=== PATIENT | male | born 1965 | race Caucasian/White ===

== ENCOUNTER → 2017-04-01 | Outpatient (CLI) | payer OTHER ==
--- NOTE | 2017-04-01 10:59 | P.STRESS ---
- Stress Test Note Stress Test Results/Findings: Exam Performed: stress echo exercise Exam Date: 04/01/17 Reason for Exam: Chest Pain Height: 5 ft 3 in Weight: 77.111 kg Protocol: Percy Stress Echo Stage: 3 Duration of Exercise: 10:11 Resting Heart Rate: 64 Resting Blood Pressure: 115/58 Maximum Achieved Heart Rate: 156 Maximum Achieved Blood Pressure: 176/76 85% PMHR: 145 100% PMHR: 170 METS: 11.7 Technologist Comment: Stress Test Results/Findings: The EKG showed sinus rhythm with normal NM interval and QRS duration. EKGs taken during and after the exercise did not reveal any changes to suggest ischemia. Patient did not experience any chest pain. Echo data: Baseline echo images showed normal wall motion and thickening. Exercise echo images showed augmentation of wall motion and thickening in all segments. Final impression: #1. Negative stress test . #2. Negative stress echo..
--- NOTE | 2017-04-02 16:50 | ECHOS ---
Stress Test Results/Findings: Exam Performed: stress echo exercise Exam Date: 04/01/17 Reason for Exam: Chest Pain Height: 5 ft 3 in Weight: 77.111 kg Protocol: Percy Stress Echo Stage: 3 Duration of Exercise: 10:11 Resting Heart Rate: 64 Resting Blood Pressure: 115/58 Maximum Achieved Heart Rate: 156 Maximum Achieved Blood Pressure: 176/76 85% PMHR: 145 100% PMHR: 170 METS: 11.7 Technologist Comment: Stress Test Results/Findings: The EKG showed sinus rhythm with normal HI interval and QRS duration. EKGs taken during and after the exercise did not reveal any changes to suggest ischemia. Patient did not experience any chest pain. Echo data: Baseline echo images showed normal wall motion and thickening. Exercise echo images showed augmentation of wall motion and thickening in all segments. Final impression: #1. Negative stress test . #2. Negative stress echo.. MTDD
== END | disposition home or self-care (01) ==
LOC: RADNMMAIN 08:58
PROVIDERS: ATTEND Family Medicine
DX: I25.2 Old myocardial infarction (principal)
CPT/HCPCS: 93017; 93350

== ENCOUNTER → 2017-10-24 | Outpatient (CLI) | payer OTHER ==
[2017-10-24 16:20] LABS: Cholesterol 260 mg/dL (<200); HDL Cholesterol 36 mg/dL (40-60); LDL Cholesterol,Calculated 158 mg/dL (0-99); Triglycerides 329 mg/dL (<150)
== END | disposition home or self-care (01) ==
LOC: LABWHC1 15:25
PROVIDERS: ATTEND Nurse Practitioner Adult Health
DX: E78.5 Hyperlipidemia, unspecified (principal)
CPT/HCPCS: 36415; 80061

== ENCOUNTER → 2019-01-10 | Outpatient (CLI) | payer BC ==
[2019-01-10 09:59] LABS: HCT 41.4 % (39.0-53.0); HGB 13.6 gm/dL (13.0-17.5); MCH 30.3 pg (25.0-35.0); MCHC 32.8 g/dL (31.0-37.0); MCV 92.5 fL (80.0-100.0); Mean Platelet Volume 6.7; Platelet Count 291 k/uL (150-450); RBC 4.47 m/uL (4.30-5.90); RDW 13.8 % (11.5-15.5); WBC 6.5 k/uL (3.8-10.6)
[2019-01-10 10:04] LABS: African American GFR (CKD) >90 (>60 ml/min/1.73 sqM); Anion Gap 7 mmol/L; Blood Urea Nitrogen 14 mg/dL (9-20); Carbon Dioxide 25 mmol/L (22-30); Chloride 107 mmol/L (98-107); Sodium 139 mmol/L (137-145)
== END | disposition home or self-care (01) ==
LOC: LABPAT 09:01
PROVIDERS: ATTEND Internal Medicine Interventional Cardiology
DX: Z01.812 Encounter for preprocedural laboratory examination (principal); I25.10 Atherosclerotic heart disease of native coronary artery without angina pectoris
CPT/HCPCS: 36415; 80051; 82565; 84520; 85027

== ENCOUNTER 2019-01-23 06:22 | Day surgery (SDC) | payer BC, OTHER ==
[2019-01-21 13:39] VITALS: BMI 28.5
[~2019-01-23 06:22] MED LIST: ALPRAZolam 0.25 MG TAB PO PRN; ALPRAZolam 0.5 MG TAB PO PRN; NITROGLYCERIN SL TABS 0.4 MG TAB SUBLINGUAL PRN; SODIUM CHLORIDE 0.9% 1,000 ML in EMPTY BAG 1 BAG IV ONE
[2019-01-23] MEDS ORDERED: ASPIRIN 325 MG TAB PO ONE (07:00)
[2019-01-23] MEDS ORDERED: ATORVASTATIN 80 MG TAB PO ONE (07:00)
[2019-01-23 07:07] VITALS: TEMP 97.8
[2019-01-23] MEDS ORDERED: fentaNYL (PF) 50 MCG/ML 2 ML AMP ONE (07:46)
[2019-01-23] MEDS: BENZOCAINE SPRAY 1 CAN MUCOUS MEM ONE ×2 (07:53→08:06)
[2019-01-23] MEDS ORDERED: fentaNYL (PF) 50 MCG/ML 2 ML AMP IV ONE (08:08)
[2019-01-23] MEDS ORDERED: MIDAZOLAM PF (FBP) 2 MG/2 ML VIAL IV ONE (08:08)
[2019-01-23] MEDS ORDERED: LIDOCAINE 1% INJ 10MG/ML (20 ML MDV) ONE (08:08)
[2019-01-23] MEDS ORDERED: LIDOCAINE 1% INJ 10MG/ML (20 ML MDV) SQ ONE (08:43)
[2019-01-23] MEDS ORDERED: IV FLUID CONTINUATION 400 ML IV ONE (08:46)
[2019-01-23] MEDS ORDERED: IOPAMIDOL-370 125ML BTL INJ ONE (08:54)
--- NOTE | 2019-01-23 09:00 | P.PCN ---
Date of Procedure: 01/23/19 Operative Findings: CARDIAC CATHETERIZATION PERFORMING PHYSICIAN: Duane Jenkins MD, RPVI PROCEDURE PERFORMED: 1. Selective right and left coronary angiogram INDICATION: This is a pleasant 53-year-old gentleman was known history of CAD and prior stenting of the LAD was experiencing symptoms of chest discomfort. He underwent myocardial perfusion imaging stress and that revealed inferior ischemia. Because of that a heart catheterization was advised. COMPLICATION: None APPROACH: Right radial artery LEVEL OF SEDATION: Moderate with a sedation Social 13 minutes PROCEDURE DESCRIPTION: After obtaining an informed consent, the patient was brought to cardiac laboratory mechanic helper. Local anesthesia was performed using lidocaine subcutaneously. The right radial artery was cannulated using Seldinger technique, the guidewire passed easily, following that we advanced a 5-[place] sheath dilator assembly, the wire and dilator were removed and sheath was flushed. Following that, 2 mg of verapamil along with 5000 unit heparin were given. Selective right and left coronary angiogram using a 6-[place] JR4 and JL4 catheter for the left circumflex and JL 3.5 catheter for the LAD. I did not perform left heart catheterization and I did not cross the valve. The procedure was completed there was no complication. SELECTIVE CORONARY ANGIOGRAM: The right coronary artery: Medium caliber vessel and nondominant vessel and appears to be angiographically normal. Left main: Does not exist The left circumflex: Is a large caliber vessel and a dominant vessel and appears to be angiographically normal. The left circumflex distally bifurcates into PDA and PLV branches and both appeared to be angiographically normal. The left anterior descending artery: It is a large caliber vessel. Its angiographically normal. The stent in the mid LAD appears to be patent. The LAD in the proximal to midportion gives rises into a diagonal branch which seems to be angiographically normal. CONCLUSION: #1 patent stent in the mid LAD #2 separate ostial of the left circumflex and LAD. The left main does not exist POSTPROCEDURE MANAGEMENT: Medical treatment Follow-up with the patient
[2019-01-23] MEDS ORDERED: RX INFO: IV CONTRAST WAS GIVEN 1 EACH MISC MISCELLANE PRN (09:02)
--- NOTE | 2019-01-23 09:06 | ECHOT ---
TRANSESOPHAGEAL ECHOCARDIOGRAM DATE OF SERVICE: January 23, 2019 PERFORMING PHYSICIAN: Duane Jenkins MD. PROCEDURE PERFORMED: Transesophageal echocardiogram. INDICATION: This is a 53-year-old gentleman with history of coronary artery disease and prior coronary artery stenting, who underwent recently an echocardiogram and that revealed a mobile echodensity attached to the noncoronary cusp of the aortic valve. ALTHEA was advised for better clarification. COMPLICATION: None. LEVEL OF SEDATION: Moderate with sedation length of 15 minutes. PROCEDURE DESCRIPTION: After obtaining an informed consent, explaining the procedure, benefits, risks, complications and alternatives, the patient was brought to the transesophageal echocardiogram suite. A pulse oximetry and heart rate monitors were attached to the patient prior to the procedure. The patient's throat was sprayed using lidocaine locally. Following that, the patient was turned into left lateral position. A bite guard was placed and the patient was then sedated with the above doses of Versed and fentanyl in divided doses. Following that, the transesophageal echocardiogram probe was advanced through the bite guard into the mid esophagus where 2-D echocardiogram images as well as color Doppler images of various cardiac structures were obtained. We evaluated the interatrial septum using 2-D echocardiogram, color Doppler, and contrast study. The procedure was completed. There were no complications. FINDINGS: The left ventricular dimension and systolic function appeared to be within normal limits. The ejection fraction appeared to be in the range of 55% to 60%. The right ventricle appeared to be of normal size and function. The left atrium appeared to be mildly dilated. The left atrial appendage appeared to be free from any thrombus. The interatrial septum appeared to be hyperdynamic with evidence of patent foramen ovale with [id number] shunt. The aortic valve is trileaflet valve. There is no aortic stenosis or regurgitation. There was a mobile echodensity attached to the downstream side of non-coronary cusp consistent with fibroelastoma. The mitral valve appeared to be normal with mild MR. There was mild tricuspid regurgitation and mild pulmonic insufficiency. CONCLUSION: 1. 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 2. The aortic valve otherwise is trileaflet valve without evidence of stenosis or regurgitation. 3. Normal left ventricular dimension and systolic function. 4. Overall normal cardiac chamber sizes. 5. Hyperdynamic interatrial septum with evidence of patent foramen ovale and right-to- left shunt. 6. Normal mitral valve leaflets with mild mitral regurgitation. 7. Normal tricuspid valve and pulmonic valve. 8. Intact left atrial appendage without any evidence of thrombus. 9. Normal aortic root dimension. 10.No evidence of pericardial effusion. MMODL / IJN: [id number] /
[2019-01-23] MEDS ORDERED: SODIUM CHLORIDE 0.9% 1,000 ML IV SCH (09:15)
[2019-01-23 11:21] VITALS: RESP 16
[2019-01-23 15:37] VITALS: BP 121/72; PULSE 66
--- NOTE | 2019-01-27 15:30 | CDI ---
Outpatient Documentation Clarification Form Date: 01/27/19 CDS/Elementary School Director Name: Negar Mullen Phone: If any questions, call Violeta Bess Machinist Supervisor Outside at [phone] Patient Name: Efe Daugherty Admit Date: 01/23/19 Discharge Date: 01/23/19 ATTENTION: The [facility] Coding Staff appreciate your assistance in clarifying documentation. Please respond to the clarification below the line at the bottom and electronically sign. The [facility] Coding staff will review the response and follow-up if needed. Please note: Queries are made part of the Legal Health Record. If you have any questions, please contact the Machinist Supervisor Outside. Dear Dr. Jenkins, Please provide clarification as to the procedure performed. Your procedure note does not contain any documentation on the pulse waive velocity mapping. Please clarify if this part of the procedure was performed. Thank you for your kind consideration MTDD
--- NOTE | 2019-02-03 09:46 | CDI ---
Outpatient Documentation Clarification Form Date: 01/27/19 CDS/Senior Controls Engineer Name: Negar Mullen Phone: If any questions, call Violeta Bess Identity Management Developer at [phone] Patient Name: Efe Daugherty Admit Date: 01/23/19 Discharge Date: 01/23/19 ATTENTION: The [facility] Coding Staff appreciate your assistance in clarifying documentation. Please respond to the clarification below the line at the bottom and electronically sign. The [facility] Coding staff will review the response and follow-up if needed. Please note: Queries are made part of the Legal Health Record. If you have any questions, please contact the Identity Management Developer. Dear Dr. Jenkins, Please provide clarification as to the procedure performed. Your procedure note does not contain any documentation on the "pulse waive velocity mapping". Please clarify if this part of the procedure was performed. Thank you for your kind consideration Not done MTDD
== END 2019-01-23 16:20 | disposition home or self-care (01) ==
LOC: CATHCVL 06:22
PROVIDERS: ATTEND Internal Medicine Interventional Cardiology
DX: I34.0 Nonrheumatic mitral (valve) insufficiency (principal); Q21.1 Atrial septal defect; R07.89 Other chest pain; R94.39 Abnormal result of other cardiovascular function study; R53.83 Other fatigue; I25.10 Atherosclerotic heart disease of native coronary artery without angina pectoris; F17.210 Nicotine dependence, cigarettes, uncomplicated; Z95.5 Presence of coronary angioplasty implant and graft; I95.9 Hypotension, unspecified; E78.5 Hyperlipidemia, unspecified; I65.23 Occlusion and stenosis of bilateral carotid arteries; Z79.82 Long term (current) use of aspirin; Z79.899 Other long term (current) drug therapy
CPT/HCPCS: 93454; 93312; 93320; 93325; C1894; C1769 ×2; J2001; J3010; Q9967; J2250

== ENCOUNTER → 2019-03-03 | Outpatient (CLI) | payer BC ==
[2019-03-03 10:23] LABS: HCT 39.1 % (39.0-53.0); HGB 13.5 gm/dL (13.0-17.5); MCH 31.7 pg (25.0-35.0); MCHC 34.5 g/dL (31.0-37.0); Mean Platelet Volume 5.7; Platelet Count 303 k/uL (150-450); RBC 4.25 m/uL (4.30-5.90); RDW 12.5 % (11.5-15.5)
--- NOTE | 2019-03-03 10:26 | P.PN ---
Progress Note - Text Progress Note Date: 03/03/19 5 meter walk test performed: #1 3.38 sec #2 3.42 sec #3 2.92 sec STS risk score calculated and discussed with patient
[2019-03-03 10:33] LABS: INR 0.9 (<1.2); Partial Thromboplastin Time 25.9 sec (22.0-30.0); Prothrombin Time 9.5 sec (9.0-12.0)
[2019-03-03 10:35] LABS: ALT 22 U/L (21-72); AST 19 U/L (17-59); African American GFR (CKD) >90 (>60 ml/min/1.73 sqM); Albumin 4.2 g/dL (3.5-5.0); Alkaline Phosphatase 58 U/L (38-126); Anion Gap 8 mmol/L; Blood Urea Nitrogen 15 mg/dL (9-20); Calcium 9.4 mg/dL (8.4-10.2); Carbon Dioxide 25 mmol/L (22-30); Chloride 107 mmol/L (98-107); Cholesterol 223 mg/dL (<200); Glucose 116 mg/dL (74-99); HDL Cholesterol 43 mg/dL (40-60); LDL Cholesterol,Calculated 149 mg/dL (0-99); Magnesium 2.1 mg/dL (1.6-2.3); Potassium 3.8 mmol/L (3.5-5.1); Sodium 140 mmol/L (137-145); Total Bilirubin 0.3 mg/dL (0.2-1.3); Total Protein 6.9 g/dL (6.3-8.2); Triglycerides 155 mg/dL (<150)
[2019-03-03 11:27] LABS: Appearance,Urine Clear (Clear); Bilirubin,Urine Negative (Negative); Blood,Urine Negative (Negative); Color,Urine Light Yellow; Glucose,Urine (UA) Negative (Negative); Ketones,Urine Negative (Negative); Leukocyte Esterase,Urine Negative (Negative); Nitrite,Urine Negative (Negative); Protein,Urine Negative (Negative); Specific Gravity,Urine 1.005 (1.001-1.035); Urobilinogen,Urine <2.0 mg/dL (<2.0)
--- NOTE | 2019-03-03 13:27 | XR ---
EXAMINATION TYPE: XR chest 2V DATE OF EXAM: 03/03/2019 COMPARISON: NONE TECHNIQUE: PA and lateral views submitted. HISTORY: Presurgical FINDINGS: The lungs are clear and there is no pneumothorax, pleural effusion, or focal pneumonia. Mild hyperi nflation correlate for COPD. No overt failure. Hypertrophic and degenerative change of the spine. IMPRESSION: 1. No acute process.
[2019-03-03 17:38] LABS: Hemoglobin A1C 5.8 % (4.0-6.0)
[2019-03-03 18:06] LABS: Hepatitis A Antibody IgM Non-Reactive (Non-Reactive); Hepatitis B Core IgM Non-Reactive (Non-Reactive); Hepatitis B Surface Antigen Non-Reactive (Non-Reactive); Hepatitis C IgG Antibody Non-Reactive (Non-Reactive)
--- NOTE | 2019-03-04 09:31 | P.VSCSTY ---
Greater Saphenous Vein Mapping This is bilateral lower extremity greater saphenous vein mapping. Date of service: 03/03/2019 Vein quality and ultrasound appearance: No endoluminal thrombus or wall changes are seen. Vein size groin right : 4.1 x 3.1 groin left: 5.6 x 5.8 High thigh right: 4.1 x 3.6 high thigh left: 5.1 x 3.9 Mid thigh right: 4.0 x 2.9 mid thigh left: 4.5 x 4.3 Above-knee right: 5.0 x 3.9 above-knee left: 5.2 x 4.2 Below knee right: 3.5 x 2.6 below-knee left: 3.8 x 2.7 Mid calf right: 2.4 x 2.0 mid calf left: 3.5 x 2.5 Ankle right: 2.5 x 2.2 ankle left: 3.1 x 2.8 Impression: Usable bilateral greater saphenous vein.
== END | disposition home or self-care (01) ==
LOC: LABPAT 08:26
PROVIDERS: ATTEND Thoracic Surgery (Cardiothoracic Vascular Surgery)
DX: Z01.818 Encounter for other preprocedural examination (principal)
CPT/HCPCS: 36415; 71046; 80053; 80061; 80074; 81003; 83036; 83735; 84443; 85027; 85610; 85730; 87070; 87086; 93005; 93970; 94150

== ENCOUNTER 2019-03-11 08:15 | Inpatient (IN) | payer BC ==
[~2019-03-11 08:15] MED LIST changes: +ALBUMIN HUMAN 25% 50 ML IV ONE; -ALPRAZolam 0.25 MG TAB PO PRN; -ALPRAZolam 0.5 MG TAB PO PRN; +ASPIRIN 325 MG TAB PO ONE; +ATORVASTATIN 10 MG TAB PO ONE; +CALCIUM CHLORIDE 100 MG/ML 10 ML SYRINGE IV ONE; +CHLORHEXIDINE GLUCONATE 15 ML CUP MUCOUS MEM ONE; +CLEVIDIPINE BUTYRATE 25 MG in EMPTY BAG 1 BAG IV ONE; +DEXTROSE 5% IN WATER 1,000 ML with POTASSIUM CHLORIDE 110 MEQ, MAGNESIUM SULFATE 16 MEQ... IV ONE; +DEXTROSE 5% IN WATER 1,000 ML with POTASSIUM CHLORIDE 25 MEQ, SODIUM CHLORIDE 2.5MEQ/ML... IRRIGATION ONE; +HEPARIN SODIUM 1,000 UN/ML (10ML VL) IV ONE; +HEPARIN SODIUM,PORCINE 5,000 UNIT in SODIUM CHLORIDE 0.9% 500 ML 500 ML IV ONE; +INSULIN REGULAR 100 UNIT in SODIUM CHLORIDE 0.9% 100 ML IV ONE; +LACTATED RINGERS 1,000 ML IV ONE; +MAGNESIUM SULFATE MG 500 MG/ML IV ONE; +MANNITOL 25% 12.5 GM/50 ML VIAL IV ONE; +METOPROLOL TARTRATE 12.5 MG TAB PO ONE; -NITROGLYCERIN SL TABS 0.4 MG TAB SUBLINGUAL PRN; +NITROGLYCERIN-D5W PMX 25 MG/250 ML BTL IV ONE; +NITROGLYCERIN-D5W PMX 50 MG in DEXTROSE/WATER 1 250ML.BAG IV ONE; +NOREPINEPHRINE 4 MG in SODIUM CHLORIDE 0.9% 250 ML IV ONE; +PHENYLEPHRINE 40 MG in SODIUM CHLORIDE 0.9% 250 ML IV ONE; +PROPOFOL 1,000 MG/100 ML VIAL IV ONE; +PROTAMINE SULFATE 10 MG/ML 25 ML VIAL IV ONE; +PROTAMINE SULFATE 250 MG in EMPTY BAG 1 BAG IV ONE; +SODIUM BICARB 8.4% 50 ML SYR (1 MEQ/ML) IV ONE; +SODIUM CHLORIDE 0.9% 1,000 ML IV ONE; -SODIUM CHLORIDE 0.9% 1,000 ML in EMPTY BAG 1 BAG IV ONE; +TRANEXAMIC ACID 2,000 MG in SODIUM CHLORIDE 0.9% 80 ML IV ONE; +ceFAZolin 2,000 MG in SODIUM CHLORIDE 0.9% 30 ML IVPB ONE
[2019-03-11] MEDS ORDERED: ONDANSETRON 4 MG/2 ML VIAL ONE (11:23)
[2019-03-11] MEDS ORDERED: PROTAMINE SULFATE 10 MG/ML 25 ML VIAL IV ONE (11:23)
[2019-03-11] MEDS ORDERED: MIDAZOLAM 2 MG/2 ML VIAL ONE (11:23)
[2019-03-11] MEDS ORDERED: fentaNYL (PF) 50 MCG/ML 2 ML AMP ONE (11:23)
[2019-03-11] MEDS ORDERED: WATER FOR INJECTION, STERILE 10 ML VIAL IV ONE (11:23)
[2019-03-11] MEDS ORDERED: LABETALOL 5 MG/ML VIAL MDV ONE (11:23)
[2019-03-11] MEDS ORDERED: PHENYLEPHRINE-0.9% NACL SYG 1 MG/10 ML SYRINGE ONE (11:23)
[2019-03-11] MEDS ORDERED: MAGNESIUM SULFATE 4 MEQ/ML 10ML VIAL ONE (11:23)
[2019-03-11] MEDS ORDERED: PROPOFOL 10 MG/ML 20 ML VIAL IV ONE (11:23)
[2019-03-11] MEDS ORDERED: HEPARIN SODIUM,PORCINE 10,000 UNIT/ML 1 ML VIAL ONE (11:23)
[2019-03-11] MEDS ORDERED: fentaNYL (PF) 50 MCG/ML 50 ML VIAL ONE (11:23)
[2019-03-11] MEDS ORDERED: TRANEXAMIC ACID 1,000 MG/10 ML VIAL ONE (11:23)
[2019-03-11] MEDS ORDERED: SODIUM CHLORIDE 0.9% 250 ML BAG ONE (11:23)
[2019-03-11] MEDS ORDERED: CALCIUM CHLORIDE 100 MG/ML 10 ML SYRINGE ONE (11:23)
[2019-03-11] MEDS ORDERED: NITROGLYCERIN-D5W PMX 50 MG/250 ML BOTTLE IV ONE (11:23)
[2019-03-11] MEDS ORDERED: VECURONIUM 10 MG VIAL IV ONE (11:23)
[2019-03-11] MEDS ORDERED: SODIUM CHLORIDE 0.9% IRRIG 1,000 ML BTL IRRIGATION ONE (11:23)
[2019-03-11 11:46] LABS: ABG Base Excess 0.5 mmol/L; ABG Glucose Whole Blood 99 mg/dL (75-99); ABG HCO3 26 mmol/L (21-25); ABG Hematocrit 39 % (34.0-46.0); ABG Ionized Calcium 4.8 mg/dL (4.5-5.3); ABG Lactic Acid Whole Blood 1.2 mmol/L (0.5-1.6); ABG PCO2 43 mmHg (35-45); ABG PH 7.39 (7.35-7.45); ABG Potassium Whole Blood 4.1 mmol/L (3.4-4.5); ABG Sodium Whole Blood 142 mmol/L (135-146); ABG TCO2 27 mmol/L (19-24)
[2019-03-11] MEDS ORDERED: TRANEXAMIC ACID 2,000 MG in SODIUM CHLORIDE 0.9% 80 ML IV ONE (12:15)
[2019-03-11 12:48] LABS: ABG Base Excess 1.1 mmol/L; ABG Glucose Whole Blood 106 mg/dL (75-99); ABG HCO3 26 mmol/L (21-25); ABG Hematocrit 35 % (34.0-46.0); ABG Ionized Calcium 4.7 mg/dL (4.5-5.3); ABG Lactic Acid Whole Blood 1.2 mmol/L (0.5-1.6); ABG Oxygen Saturation 99.3 % (94-97); ABG PCO2 41 mmHg (35-45); ABG PH 7.41 (7.35-7.45); ABG PO2 167 mmHg (83-108); ABG Potassium Whole Blood 4.2 mmol/L (3.4-4.5); ABG Sodium Whole Blood 141 mmol/L (135-146); ABG TCO2 27 mmol/L (19-24)
[2019-03-11 13:04] LABS: ABG Base Excess -0.1 mmol/L; ABG Glucose Whole Blood 194 mg/dL (75-99); ABG HCO3 25 mmol/L (21-25); ABG Hematocrit 25 % (34.0-46.0); ABG Ionized Calcium 4.2 mg/dL (4.5-5.3); ABG Lactic Acid Whole Blood 1.5 mmol/L (0.5-1.6); ABG Oxygen Saturation 99.9 % (94-97); ABG PCO2 41 mmHg (35-45); ABG PH 7.39 (7.35-7.45); ABG PO2 400 mmHg (83-108); ABG Potassium Whole Blood 4.9 mmol/L (3.4-4.5); ABG Sodium Whole Blood 135 mmol/L (135-146); ABG TCO2 26 mmol/L (19-24)
[2019-03-11 14:03] LABS: ABG Base Excess 0.2 mmol/L; ABG Glucose Whole Blood 164 mg/dL (75-99); ABG HCO3 25 mmol/L (21-25); ABG Hematocrit 29 % (34.0-46.0); ABG Lactic Acid Whole Blood 1.2 mmol/L (0.5-1.6); ABG Oxygen Saturation 99.2 % (94-97); ABG PCO2 39 mmHg (35-45); ABG PH 7.41 (7.35-7.45); ABG PO2 131 mmHg (83-108); ABG Potassium Whole Blood 4.5 mmol/L (3.4-4.5); ABG Sodium Whole Blood 138 mmol/L (135-146); ABG TCO2 26 mmol/L (19-24)
[2019-03-11] MEDS ORDERED: DEXTROSE 5% IN WATER 100 ML with AMIODARONE 150 MG IV PRN (14:24)
[2019-03-11] MEDS ORDERED: Magnesium Replacement Protocol 1 EACH MISC MISCELLANE PRN (14:24)
[2019-03-11] MEDS ORDERED: Phosphorus Replacement Protoco 1 EACH MISC MISCELLANE PRN (14:24)
[2019-03-11] MEDS ORDERED: CALCIUM GLUCONATE 2 GM in SODIUM CHLORIDE 0.9% 100 ML IVPB PRN (14:24)
[2019-03-11] MEDS ORDERED: Potassium Replacement Protocol 1 EACH MISC MISCELLANE PRN (14:24)
[2019-03-11] MEDS ORDERED: AMIODARONE 300 MG in DEXTROSE 5% IN WATER 250 ML IV PRN ×2 (14:24)
[2019-03-11] MEDS ORDERED: ONDANSETRON 4 MG/2 ML VIAL IVP PRN (14:24)
[2019-03-11] MEDS ORDERED: IPRATROPIUM-ALBUTEROL 3 ML NEB INHALATION PRN (14:24)
[2019-03-11] MEDS ORDERED: BENZOCAINE/MENTHOL LOZENG 1 EACH LOZENGE MUCOUS MEM PRN (14:24)
[2019-03-11] MEDS ORDERED: PROPOFOL 1,000 MG in EMPTY BAG 1 BAG IV SCH (14:24)
[2019-03-11] MEDS ORDERED: AMIODARONE 360 MG in DEXTROSE 5% IN WATER 200 ML IV PRN ×2 (14:24)
[2019-03-11] MEDS ORDERED: ALBUMIN HUMAN 5% 250 ML in EMPTY BAG 1 BAG IVPB PRN (14:24)
[2019-03-11 14:29] LABS: ABG PO2 >420 mmHg (83-108)
[2019-03-11 14:31] LABS: ABG Ionized Calcium 3.5 mg/dL (4.5-5.3)
[2019-03-11 14:46] LABS: Glucose,Whole Blood 143 mg/dL (75-99)
[2019-03-11 14:59] LABS: Basophils # (A) 0.1 k/uL (0-0.2); Basophils % (A) 1 %; Eosinophils # (A) 0.1 k/uL (0-0.7); Eosinophils % (A) 1 %; HCT 30.3 % (39.0-53.0); Lymphocytes % (A) 8 %; MCH 31.2 pg (25.0-35.0); MCHC 33.8 g/dL (31.0-37.0); MCV 92.2 fL (80.0-100.0); Mean Platelet Volume 6.9; Monocytes # (A) 0.4 k/uL (0-1.0); Monocytes % (A) 3 %; Neutrophils # (A) 11.3 k/uL (1.3-7.7); Neutrophils % (A) 87 %; Platelet Count 170 k/uL (150-450); RBC 3.29 m/uL (4.30-5.90); RDW 12.4 % (11.5-15.5)
[2019-03-11] MEDS: CLEVIDIPINE BUTYRATE 25 MG in EMPTY BAG 1 BAG IV SCH ×4 (15:00→23:00)
[2019-03-11 15:04] LABS: Ionized Calcium 5.7 mg/dL (4.5-5.3)
[2019-03-11 15:13] LABS: ALT 24 U/L (21-72); AST 16 U/L (17-59); African American GFR (CKD) >90 (>60 ml/min/1.73 sqM); Albumin 2.4 g/dL (3.5-5.0); Alkaline Phosphatase 40 U/L (38-126); Anion Gap 3 mmol/L; Blood Urea Nitrogen 6 mg/dL (9-20); Calcium 8.9 mg/dL (8.4-10.2); Carbon Dioxide 25 mmol/L (22-30); Chloride 109 mmol/L (98-107); Glucose 131 mg/dL (74-99); HGB 10.2 gm/dL (13.0-17.5); Magnesium 2.5 mg/dL (1.6-2.3); Potassium 3.9 mmol/L (3.5-5.1); Sodium 137 mmol/L (137-145); Total Bilirubin 0.2 mg/dL (0.2-1.3); Total Protein 4.2 g/dL (6.3-8.2)
[2019-03-11 15:15] LABS: Glucose,Whole Blood 148 mg/dL (75-99)
--- NOTE | 2019-03-11 15:16 | XR ---
EXAMINATION TYPE: XR chest 1V portable DATE OF EXAM: 03/11/2019 HISTORY: Post Op CABG COMPARISON: 03/03/2019 TECHNIQUE: Single view of the chest is submitted. FINDINGS: Endotracheal tube, NG tube, SG catheter, mediastianal drains and chest tubes are appropriately placed . Post operative changes of CABG. No sizeable pneumothorax. Scattered Pleural-parencymal opacities may reflect atelectasis. The heart is not enlarged. IMPRESSION: 1. Post operative changes of CABG.
[2019-03-11 15:22] LABS: Partial Thromboplastin Time 25.6 sec (22.0-30.0)
--- NOTE | 2019-03-11 15:26 | OP ---
OPERATIVE REPORT DATE OF THE OPERATION: 03/11/2019. ATTENDING SURGEON: Dr. Devin Higginbotham. FAX MACHINE REPAIRER: 1. BRYAN Isabel. 2. Lucy King____BRYAN. PREOPERATIVE DIAGNOSIS: Mobile aortic valve mass. POSTOPERATIVE DIAGNOSIS: Mobile aortic valve mass. PROCEDURE: Removal of aortic valve mass attached to the noncoronary cusp, clip ligation of the left atrial appendage with a #35 mm AtriClip and intraoperative ALTHEA. ANESTHESIA: General. BLOOD LOSS: 500 mL. SUMMARY: Patient brought to the operating room, placed in supine position. From insertion of a general endotracheal anesthetic, placement of a Benson-Bhavya catheter arterial line, adequate IV access, Bolanos catheter, patient carefully prepped and draped in a normal sterile fashion using chlorhexidine paint, sterile towels. Midline incision in the chest made, sternum divided. Pericardium was opened. Heart was normal. Caliber of the aorta was soft. The patient was heparinized to an AST of greater than 486. Aorta and vena cava were cannulated, antegrade cardioplegia catheter positioned. Patient was placed on bypass. Cross-clamp placed. Artery arrested with 1 L of antegrade cardioplegia. At this point, the base of the left atrial appendage was measured, a 35 mm AtriClip was opened, secured at the base, officially obliterating the left atrial appendage. An aortotomy incision was made about 1.5 cm distal to the takeoff of the right coronary artery, starting just past the midline extending down towards the area of the non coronary cusp. Once opened, a left ventricular vent was placed and a handheld retractor was placed. There was, as confirmed with the echo, there was a mobile soft half to 1 cm mass attached to the noncoronary cusp. Gently, this mass as it was very friable, was gently elevated, lifted superiorly and the base was then trimmed using a 15 bladed knife. Care was taken not to disrupt the non coronary cusp of the aortic valve. The mass was then placed in a specimen cup and sent to pathology for full studies. The aortic root was irrigated out copiously with saline and the aortotomy incision closed in a double layered pledgeted 4-0 Prolene vertical mattress followed by an [id number] stitch on both sides. The patient was then placed head down. Complete de-airing maneuvers performed 3 times, 500 mL of warm blood hotshot given antegrade. Cross-clamp was removed. Once beating normal sinus rhythm, the ALTHEA was performed which showed no residual mass present and good function of the aortic valve also. Please make note, attention was directed preoperatively and postoperatively to the atrial septum where there was a questionable dictation of a preop PFO. Both preop and postop echo showed no evidence of a PFO. A bubble study was done, bubbles on the right side and no bubbles were then seen on the left. At this point, protamine delivered, patient decannulated. Ventricular pacing wires were placed, mediastinal chest tube was placed. The sternum was then closed with 4 #6 sternal wires and 2 [id number] [place] sternal cable closure devices. The skin, subcutaneous tissue, fascia closed in 3 layers. No complications. Patient tolerated the procedure well and was taken to the ICU in stable condition. MMODL / IJN: [id number] /
[2019-03-11] MEDS: LACTATED RINGERS 1,000 ML IV SCH (15:57)
[2019-03-11] MEDS ORDERED: INSULIN REGULAR 100 UNIT in SODIUM CHLORIDE 0.9% 100 ML IV SCH (16:00)
[2019-03-11] MEDS ORDERED: IPRATROPIUM-ALBUTEROL 3 ML NEB INHALATION SCH (16:00)
[2019-03-11 16:06] LABS: Glucose,Whole Blood 155 mg/dL (75-99)
[2019-03-11 16:56] LABS: ABG Base Excess 1.2 mmol/L; ABG HCO3 27 mmol/L (21-25); ABG Oxygen Saturation 94.1 % (94-97); ABG PCO2 48 mmHg (35-45); ABG PH 7.36 (7.35-7.45); ABG PO2 72 mmHg (83-108); ABG TCO2 28 mmol/L (19-24); Allen Test Performed? Yes
[2019-03-11 16:59] LABS: Glucose,Whole Blood 150 mg/dL (75-99)
[2019-03-11] MEDS ORDERED: POTASSIUM BICARBONATE/CIT AC 20 MEQ TABLET.EFF NG-TUBE SCH (17:00)
[2019-03-11] MEDS: ACETAMINOPHEN IV (For NPO) 1,000 MG in EMPTY BAG 1 BAG IVPB SCH ×2 (17:04→23:02)
--- NOTE | 2019-03-11 17:34 | P.CNPUL ---
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 The patient has history of hypertension, hyperlipidemia, coronary artery disease and is post coronary stenting. He is a smoker. He was having increased fatigue over the past 6 months. He denied having any chest pain. No chest pressure pain no palpitation. No dizziness and no vertigo. Stress test showed reversible defect along the inferior wall. Previous echocardiogram also showed a mobile echodensity along the aortic valve. 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 Normal LV function was noted. There was a patent foramen ovale with a [id number] shunt. The rest of the valvular structures were all within normal limits. A preoperative coronary angiogram showed patent stent to a med LAD. Following the surgery the patient was brought into the intensive care unit for further evaluation and weaning off the mechanical ventilator. At the time of his arrival, the patient was on assist control mode of ventilation. The patient was gradually weaned off the sedation. The patient was awake and following commands. He is weaning parameters were excellent with a temperature breathing index of 53. Subsequently was given a spontaneous breathing trial with a pressure support of 5 and a PEEP of 5 and the patient was found to have a pH of 7.35 with a pCO2 of 47 and pO2 of 71. At that point, the patient was extubated. The chest x-ray showed postoperative changes with adequate positioning of the mediastinal drains and tubes. As such, the patient was extubated. The patient has a cardiac output of 6.1. He is currently on Levophed Drip for blood p ressure control. He a pressures are 32/20. He is single mediastinal chest tube and output has been minimal since his arrival from the operating room. He is awake and alert and is following commands and answering questions appropriately. Past Medical History Past Medical History: Hyperlipidemia, Hypertension, Myocardial Infarction ([place]) Additional Past Medical History / Comment(s): chest discomfort, sob with talking fast Last Myocardial Infarction Date:: 08-28-13 History of Any Multi-Drug Resistant Organisms: None Reported Past Surgical History: Heart Catheterization With Stent, Hernia Repair, Orthopedic Surgery Additional Past Surgical History / Comment(s): heart stent x1,bone spurs removed, recent heart cath., ALTHEA Past Anesthesia/Blood Transfusion Reactions: No Reported Reaction Date of Last Stent Placement:: 08-28-13 Smoking Status: Current every day smoker - Past Family History Mother Family Medical History: Coronary Artery Disease (CAD) Additional Family Medical History / Comment(s): CABG Medications and Allergies Home Medications Medication Instructions Recorded Confirmed Type Aspirin 81 mg PO DAILY 01/21/19 03/11/19 History Atorvastatin [Lipitor] 40 mg PO HS 01/21/19 03/11/19 History Metoprolol Tartrate [Lopressor] 12.5 mg PO BID 01/21/19 03/11/19 History Allergies Allergy/AdvReac Type Severity Reaction Status Date / Time No Known Allergies Allergy Verified 03/11/19 08:28 Physical Exam Vitals: Vital Signs Temp Pulse Pulse Resp BP BP BP 03/11/19 16:30 86 20 03/11/19 16:20 83 21 118/74 03/11/19 16:10 80 25 H 118/74 03/11/19 16:00 80 19 122/76 03/11/19 15:50 81 12 03/11/19 15:40 81 12 03/11/19 15:39 84 03/11/19 15:30 76 12 03/11/19 15:20 77 12 03/11/19 15:10 74 14 03/11/19 15:00 75 12 03/11/19 14:50 76 12 03/11/19 14:40 73 12 03/11/19 14:36 73 31 H 03/11/19 08:42 97.1 F L 62 16 119/76 137/83 Pulse Ox 03/11/19 16:30 94 L 03/11/19 16:20 94 L 03/11/19 16:10 98 03/11/19 16:00 97 03/11/19 15:50 99 03/11/19 15:40 100 03/11/19 15:39 03/11/19 15:30 100 03/11/19 15:20 100 03/11/19 15:10 100 03/11/19 15:00 100 03/11/19 14:50 100 03/11/19 14:40 100 03/11/19 14:36 03/11/19 08:42 98 Intake and Output 03/11/19 03/11/19 03/11/19 06:59 14:59 22:59 Intake Total 251 59.736 Output Total 2200 555 Balance -1949 -495.264 Intake: IV 251 50 Lactated Ringers 1,000 ml 50 @ 50 mls/hr IV .Q20H [facility]OLO Rx#:[id number] Intake, IV Titration 9.736 Amount Clevidipine Butyrate 25 6.833 mg In Empty Bag 1 bag @ 1 MG/HR 2 mls/hr IV .Q24H [facility]OLO Rx#:[id number] Propofol 1,000 mg In 2.903 Empty Bag 1 bag @ Titrate IV .Q0M [facility]OLO Rx#: [id number] Output: Chest Tube Drainage 30 Chest Tube Mediastinal 30 Urine 1000 525 Estimated Blood Loss 1200 ABP, PAP, CO, CI - Last 8 Hours Arterial Blood Pressure 119/58 Arterial Blood Pressure 117/57 Arterial Blood Pressure 114/55 Arterial Blood Pressure 121/59 Arterial Blood Pressure 128/64 Arterial Blood Pressure 150/83 Arterial Blood Pressure 154/85 Arterial Blood Pressure 150/82 Arterial Blood Pressure 144/77 Arterial Blood Pressure 134/69 Arterial Blood Pressure 138/71 Arterial Blood Pressure 143/72 Arterial Blood Pressure 27/27 Pulmonary Artery Pressure 27/17 Pulmonary Artery Pressure 30/17 Pulmonary Artery Pressure 28/19 Pulmonary Artery Pressure 29/18 Pulmonary Artery Pressure 28/18 Pulmonary Artery Pressure 31/20 Pulmonary Artery Pressure 31/20 Pulmonary Artery Pressure 29/18 Pulmonary Artery Pressure 29/17 Pulmonary Artery Pressure 26/15 Pulmonary Artery Pressure 29/16 Pulmonary Artery Pressure 34/19 Cardiac Output 6.1 Cardiac Output 6.1 Cardiac Output 6.6 Cardiac Output 6.6 Cardiac Output 6.6 Cardiac Output 6.6 Cardiac Output 6.6 Cardiac Output 6.6 Cardiac Output 6.6 Cardiac Output 6.6 Cardiac Index 3.5 Cardiac Index 3.5 Cardiac Index 3.8 Cardiac Index 3.8 Cardiac Index 3.8 Cardiac Index 3.8 Cardiac Index 3.8 Cardiac Index 3.8 Cardiac Index 3.8 Cardiac Index 3.8 Gen. appearance, comfortable likely distress awake and alert Head exam was generally normal. There was no scleral icterus or corneal arcus. Mucous membranes were moist. Neck was supple and without jugular venous distension, thyromegaly, or carotid bruits. Carotids were easily palpable bilaterally. There was no adenopathy. The patient has a right IJ [place]-Bhavya catheter in place and the cordis is in place. Lungs were clear to auscultation and percussion, and with normal diaphragmatic excursion. No wheezes or rales were noted. Breath sounds are diminished in lung bases and the patient has a B-cell chest tube in place. Sternum stable clean and intact. Cardiac exam revealed the PMI to be normally situated and sized. The rhythm was regular and no extrasystoles were noted during several minutes of auscultation. The first and second heart sounds were normal and physiologic splitting of the second heart sound was noted. There were no murmurs, rubs, clicks, or gallops. Abdominal exam revealed normal bowel sounds. The abdomen was soft, non-tender, and without masses, organomegaly, or appreciable enlargement of the abdominal aorta. Examination of the extremities revealed easily palpable radial, femoral and pedal pulses. There was no cyanosis, clubbing or edema. Examination of the skin revealed no evidence of significant rashes, suspicious appearing nevi or other concerning lesions. Neurologically awake and alert. Results 1 post thoracotomy and resection of a aortic valve mass involving the noncoronary cusp. The patient is postop day #0. 2 post thoracotomy, extubated . Chest x-ray shows adequate expansion of both lungs. The patient had good weaning parameters. He passed this point is breathing trial and he was extubated within a few hours after he arrived to the intensive care unit. 3 coronary artery disease 4 previous history of coronary stent insertion with recent cardiac catheterization showing patent coronary arteries 5 hypertension currently on Cleviprex Drip for blood pressure control 6 hyperlipidemia Plan Keep the patient extubated. Oxygen by nasal cannula. Incentive spirometer. Monitor output from the chest tube. Monitored hemodynamics. Cleviprex Drip for blood pressure control. We'll continue to follow. - Laboratory Findings CBC and BMP: 03/11/19 14:45 03/11/19 14:45 ABG ABG pH 7.41 (7.35-7.45) 03/11/19 14:02 ABG pCO2 39 mmHg (35-45) 03/11/19 14:02 ABG pO2 131 mmHg (83-108) H 03/11/19 14:02 ABG O2 Saturation 99.2 % (94-97) H 03/11/19 14:02 PT/INR, D-dimer PT 11.0 sec (9.0-12.0) 03/11/19 14:45 INR 1.0 (<1.2) 03/11/19 14:45 Abnormal lab findings: Abnormal Labs 03/03/19 03/11/19 03/11/19 09:00 11:46 12:48 WBC RBC Hgb Hct Neutrophils # ABG pO2 >420 H 167 H ABG HCO3 26 H 26 H ABG Total CO2 27 H 27 H ABG O2 Saturation 100.0 H 99.3 H ABG Hematocrit ABG Potassium ABG Ionized Calcium ABG Glucose 106 H Hemoglobin 12.7 L 11.5 L Chloride BUN Glucose POC Glucose (mg/dL) Ionized Calcium Jeanie Magnesium AST Total Protein Albumin Arterial Blood Potassium Arterial Blood Glucose 106 H Crossmatch See Detail 03/11/19 03/11/19 03/11/19 13:04 14:02 14:44 WBC RBC Hgb Hct Neutrophils # ABG pO2 400 H 131 H ABG HCO3 ABG Total CO2 26 H 26 H ABG O2 Saturation 99.9 H 99.2 H ABG Hematocrit 25 L 29 L ABG Potassium 4.9 H ABG Ionized Calcium 4.2 L 3.5 L* ABG Glucose 194 H 164 H Hemoglobin 8.3 L 9.6 L Chloride BUN Glucose POC Glucose (mg/dL) 143 H Ionized Calcium Jeanie Magnesium AST Total Protein Albumin Arterial Blood Potassium 4.9 H Arterial Blood Glucose 194 H 164 H Crossmatch 03/11/19 03/11/19 03/11/19 14:45 14:45 15:14 WBC 13.0 H RBC 3.29 L Hgb 10.2 L D Hct 30.3 L Neutrophils # 11.3 H ABG pO2 ABG HCO3 ABG Total CO2 ABG O2 Saturation ABG Hematocrit ABG Potassium ABG Ionized Calcium ABG Glucose Hemoglobin Chloride 109 H BUN 6 L Glucose 131 H POC Glucose (mg/dL) 148 H Ionized Calcium Jeanie 5.7 H Magnesium 2.5 H AST 16 L Total Protein 4.2 L Albumin 2.4 L Arterial Blood Potassium Arterial Blood Glucose Crossmatch 03/11/19 16:05 WBC RBC Hgb Hct Neutrophils # ABG pO2 ABG HCO3 ABG Total CO2 ABG O2 Saturation ABG Hematocrit ABG Potassium ABG Ionized Calcium ABG Glucose Hemoglobin Chloride BUN Glucose POC Glucose (mg/dL) 155 H Ionized Calcium Jeanie Magnesium AST Total Protein Albumin Arterial Blood Potassium Arterial Blood Glucose Crossmatch - Diagnostic Findings Chest x-ray: image reviewed
[2019-03-11] MEDS: KETOROLAC 30 MG/ML 1 ML VIAL IVP SCH ×2 (17:50→23:22)
[2019-03-11 17:55] LABS: Glucose,Whole Blood 161 mg/dL (75-99)
[2019-03-11 18:14] LABS: Basophils # (A) 0.2 k/uL (0-0.2); Basophils % (A) 1 %; Eosinophils # (A) 0.1 k/uL (0-0.7); Eosinophils % (A) 0 %; HCT 37.6 % (39.0-53.0); HGB 12.8 gm/dL (13.0-17.5); Lymphocytes # (A) 1.2 k/uL (1.0-4.8); Lymphocytes % (A) 5 %; MCH 31.5 pg (25.0-35.0); MCHC 34.1 g/dL (31.0-37.0); MCV 92.4 fL (80.0-100.0); Mean Platelet Volume 5.8; Monocytes # (A) 1.2 k/uL (0-1.0); Monocytes % (A) 5 %; Neutrophils # (A) 19.3 k/uL (1.3-7.7); Neutrophils % (A) 88 %; Platelet Count 274 k/uL (150-450); RBC 4.07 m/uL (4.30-5.90); RDW 12.6 % (11.5-15.5)
[2019-03-11 19:10] LABS: Glucose,Whole Blood 130 mg/dL (75-99)
[2019-03-11] MEDS: IPRATROPIUM-ALBUTEROL 3 ML NEB INHALATION SCH (19:32)
[2019-03-11 20:10] LABS: Glucose,Whole Blood 139 mg/dL (75-99)
[2019-03-11 20:19] LABS: Basophils # (A) 0.2 k/uL (0-0.2); Basophils % (A) 1 %; Eosinophils # (A) 0.1 k/uL (0-0.7); Eosinophils % (A) 1 %; HCT 36.2 % (39.0-53.0); HGB 12.3 gm/dL (13.0-17.5); Lymphocytes # (A) 0.6 k/uL (1.0-4.8); Lymphocytes % (A) 3 %; MCH 31.2 pg (25.0-35.0); MCV 91.8 fL (80.0-100.0); Mean Platelet Volume 6.5; Monocytes # (A) 0.8 k/uL (0-1.0); Monocytes % (A) 5 %; Neutrophils # (A) 15.9 k/uL (1.3-7.7); Neutrophils % (A) 90 %; Platelet Count 236 k/uL (150-450); RBC 3.94 m/uL (4.30-5.90); RDW 12.3 % (11.5-15.5); WBC 17.7 k/uL (3.8-10.6)
[2019-03-11] MEDS ORDERED: MUPIROCIN 2% OINT 22 GM TUBE NASAL ONE (20:45)
[2019-03-11] MEDS: METOPROLOL TARTRATE 12.5 MG TAB PO SCH ×2 (20:58)
[2019-03-11] MEDS: HEPARIN SODIUM,PORCINE 5,000 UNIT/ML 1 ML VIAL SQ SCH (21:02)
[2019-03-11 21:06] LABS: Glucose,Whole Blood 125 mg/dL (75-99)
[2019-03-11 22:09] LABS: Glucose,Whole Blood 119 mg/dL (75-99)
[2019-03-11 23:08] LABS: Glucose,Whole Blood 123 mg/dL (75-99)
[2019-03-12 00:22] LABS: Glucose,Whole Blood 128 mg/dL (75-99)
[2019-03-12 00:56] LABS: Glucose,Whole Blood 120 mg/dL (75-99)
[2019-03-12] MEDS ORDERED: HYDROcodone/APAP 5-325MG 1 EACH TAB PO PRN ×2 (01:49)
[2019-03-12 03:01] LABS: Glucose,Whole Blood 110 mg/dL (75-99)
[2019-03-12 04:16] LABS: Glucose,Whole Blood 133 mg/dL (75-99)
[2019-03-12 04:25] LABS: Basophils # (A) 0.1 k/uL (0-0.2); Basophils % (A) 1 %; Eosinophils % (A) 0 %; HCT 35.5 % (39.0-53.0); HGB 12.1 gm/dL (13.0-17.5); Lymphocytes % (A) 8 %; MCH 31.3 pg (25.0-35.0); MCHC 34.2 g/dL (31.0-37.0); MCV 91.6 fL (80.0-100.0); Mean Platelet Volume 7.1; Monocytes # (A) 0.6 k/uL (0-1.0); Monocytes % (A) 5 %; Neutrophils # (A) 10.6 k/uL (1.3-7.7); Neutrophils % (A) 85 %; Platelet Count 213 k/uL (150-450); RBC 3.88 m/uL (4.30-5.90); RDW 12.4 % (11.5-15.5); WBC 12.4 k/uL (3.8-10.6)
[2019-03-12 04:28] LABS: Ionized Calcium 4.7 mg/dL (4.5-5.3)
[2019-03-12 04:37] LABS: ALT 29 U/L (21-72); AST 29 U/L (17-59); African American GFR (CKD) >90 (>60 ml/min/1.73 sqM); Albumin 3.3 g/dL (3.5-5.0); Alkaline Phosphatase 55 U/L (38-126); Anion Gap 6 mmol/L; Blood Urea Nitrogen 8 mg/dL (9-20); Calcium 8.3 mg/dL (8.4-10.2); Carbon Dioxide 26 mmol/L (22-30); Chloride 103 mmol/L (98-107); Glucose 114 mg/dL (74-99); Sodium 135 mmol/L (137-145); Total Bilirubin 0.4 mg/dL (0.2-1.3); Total Protein 5.4 g/dL (6.3-8.2)
[2019-03-12 05:12] LABS: Glucose,Whole Blood 132 mg/dL (75-99)
[2019-03-12] MEDS: KETOROLAC 30 MG/ML 1 ML VIAL IVP SCH ×4 (05:26→23:19)
[2019-03-12 05:53] LABS: Glucose,Whole Blood 131 mg/dL (75-99)
[2019-03-12 07:01] LABS: Glucose,Whole Blood 126 mg/dL (75-99)
[2019-03-12] MEDS: IPRATROPIUM-ALBUTEROL 3 ML NEB INHALATION SCH ×5 (08:04→20:07)
--- NOTE | 2019-03-12 08:06 | XR ---
EXAMINATION TYPE: XR chest 1V portable DATE OF EXAM: 03/12/2019 COMPARISON: Prior chest x-ray dated 03/11/2019 HISTORY: Postop cardiac surgery, extubation TECHNIQUE: Single frontal view of the chest is obtained. FINDINGS: Endotracheal tube and NG tube have been removed. There is overlying tubing and cardiac shen ds, artifacts. Right jugular central venous sheath and coaxial [place]-Bhavya catheter are in place, dista l tip of the catheter overlying the pulmonary artery. Patient is post median sternotomy and atrial ap pendage clipping. Median sternotomy drain remains in place. Lung volumes are low. Bibasilar increased density obscures the left hemidiaphragm. Interstitium is increased. There is no pneumothorax. Heart size is stable. IMPRESSION: Expiratory rotated exam. Probable basilar atelectasis versus edema, possible small effus ion, correlate for volume overload, interstitial edema. Interval extubation.
[2019-03-12] MEDS ORDERED: BISACODYL 10 MG SUPP RECTAL PRN (09:00)
[2019-03-12] MEDS ORDERED: MAGNESIUM HYDROXIDE 2,400 MG/10 ML CUP PO PRN (09:00)
[2019-03-12] MEDS ORDERED: PANTOPRAZOLE 40 MG/10 ML VIAL IVP SCH (09:00)
[2019-03-12] MEDS ORDERED: METOPROLOL TARTRATE 12.5 MG TAB PO SCH (09:00)
[2019-03-12 09:07] LABS: Glucose,Whole Blood 209 mg/dL (75-99)
[2019-03-12] MEDS: ASPIRIN 325 MG TAB PO SCH (09:10)
[2019-03-12] MEDS: METOPROLOL TARTRATE 12.5 MG TAB PO SCH (09:10)
[2019-03-12] MEDS: ATORVASTATIN 40 MG TAB PO SCH (09:11)
[2019-03-12] MEDS: HEPARIN SODIUM,PORCINE 5,000 UNIT/ML 1 ML VIAL SQ SCH ×3 (09:11→23:19)
--- NOTE | 2019-03-12 09:57 | P.PN ---
Subjective Progress Note Date: 03/12/19 Principal diagnosis: Aortic Valve Mass. Previous history of [place] with VF arrest (2013), Cardiac stent to LAD, HTN, HLD, and arthritis. He is a current 1 ppd smoker since he was 14 ye ars old. POD 1 removal of aortic valve mass attached to the noncoronary cusp, clip ligation of the left atrial appendage with a #35 mm AtriClip and intraoperative ALTHEA. Patient alert and currently sitting up in chair eating breakfast with heart hugger, elmer hose, SCD's on. Denies any pain, nausea. complains of shortness of breath with activity that resolves with rest. Patient able to achieve 500cc on incentive spirometer. Mediastinal chest tube to -[id number] with a total of 300cc sero/sang drainage. No air leak or crepitus noted. Patient on 6L NC with a SPO2 of 98%. Patient SR/ST heart rate 100bpm. Midline chest incision stable no redness or drainage noted. Objective - Vital Signs Vital signs: Vital Signs Temp 99 F 03/12/19 04:00 Pulse 100 03/12/19 08:14 Resp 23 03/12/19 07:00 BP 106/76 03/12/19 06:30 Pulse Ox 98 03/12/19 07:00 Intake & Output 03/11/19 03/12/19 03/12/19 18:59 06:59 18:59 Intake Total 786.400 7980.877 59 Output Total 3620 1735 60 Balance -2969.086 -705.123 -1 Weight 80.6 kg Intake: IV 628 888 59 ACETAMINOPHEN IV (For NPO 100 50 ) 1,000 mg In Empty Bag 1 bag @ 400 mls/hr IVPB Q6HR [facility] Rx#:[id number] CO/CI 80 Lactated Ringers 1,000 ml 200 600 50 @ 50 mls/hr IV .Q20H [facility] Rx#:[id number] Pressure Bag 27 108 9 ceFAZolin 2 gm In Sodium 50 50 Chloride 0.9% 50 ml @ 100 mls/hr IVPB Q8HR [facility] Rx# :[id number] Intake, IV Titration 22.914 141.877 Amount Clevidipine Butyrate 25 15.466 130.800 mg In Empty Bag 1 bag @ 1 MG/HR 2 mls/hr IV .Q24H [facility] Rx#:[id number] Insulin Regular 100 unit 4.545 11.077 In Sodium Chloride 0.9% 100 ml @ Per Protocol IV .Q0M [facility] Rx#:[id number] Propofol 1,000 mg In 2.903 Empty Bag 1 bag @ Titrate IV .Q0M [facility] Rx#: [id number] Output: Chest Tube Drainage 70 190 30 Chest Tube Mediastinal 70 190 30 Urine 2350 1545 30 Estimated Blood Loss 1200 Other: Voiding Method Indwelling Catheter Indwelling Catheter ABP, PAP, CO, CI - Last Documented Arterial Blood Pressure 107/62 Pulmonary Artery Pressure 23/11 Cardiac Output 5.3 Cardiac Index 3 - Constitutional General appearance: Present: cooperative, no acute distress - Respiratory Details: Lungs clear to auscultation, but diminished to bases bilaterally. No wheezes or rhonchi noted. Mediastinal chest tube in place with minimal sero/sang drainage present, no air leak or crepitus present. IS at bedside and encouraged 10 x ev keena hour. Patient encouraged to cough and deep breath splinting chest with heart hugger. - Cardiovascular Details: Regular rate and rhythm, S1, S1 heart sounds present. No murmurs or friction rubs noted. No peripheral edema. Extremities warm to touch, +2 pulses x 4 extremities. Capillary refill < 3 sec. Sternum stable. Right IR cordis swan, and right radial arterial line present. - Gastrointestinal Gastrointestinal Comment(s): Abdomen soft, non-tender. Hypoactive bowel sounds present. Denies flatus. No nausea or vomiting. Tolerating clear liquid diet. - Genitourinary Genitourinary Comment(s): Liz catheter present, draining clear yellow urine. Urine output approximately 100cc/hours. - Neurologic Neurologic Comment(s): Alert and oriented x 3, calm and cooperative. - Musculoskeletal Musculoskeletal: Present: generalized weakness - Psychiatric Psychiatric: Present: A&O x's 3, appropriate affect, intact judgment & insight - Allied health notes Allied health notes reviewed: nursing - Labs CBC & Chem 7: 03/12/19 04:12 03/12/19 04:12 Labs: Abnormal Lab Results - Last 24 Hours (Table) 03/03/19 03/11/19 03/11/19 Range/Units 09:00 11:46 12:48 WBC (3.8-10.6) k/uL RBC (4.30-5.90) m/uL Hgb (13.0-17.5) gm/dL Hct (39.0-53.0) % Neutrophils # (1.3-7.7) k/uL Lymphocytes # (1.0-4.8) k/uL Monocytes # (0-1.0) k/uL ABG pCO2 (35-45) mmHg ABG pO2 >420 H 167 H (83-108) mmHg ABG HCO3 26 H 26 H (21-25) mmol/L ABG Total CO2 27 H 27 H (19-24) mmol/L ABG O2 Saturation 100.0 H 99.3 H (94-97) % ABG Hematocrit (34.0-46.0) % ABG Potassium (3.4-4.5) mmol/L ABG Ionized Calcium (4.5-5.3) mg/dL ABG Glucose 106 H (75-99) mg/dL Hemoglobin 12.7 L 11.5 L (13.0-17.5) gm/dL Sodium (137-145) mmol/L Chloride (98-107) mmol/L BUN (9-20) mg/dL Glucose (74-99) mg/dL POC Glucose (mg/dL) (75-99) mg/dL Calcium (8.4-10.2) mg/dL Ionized Calcium Jeanie (4.5-5.3) mg/dL Magnesium (1.6-2.3) mg/dL AST (17-59) U/L Total Protein (6.3-8.2) g/dL Albumin (3.5-5.0) g/dL Arterial Blood Potassium (3.4-4.5) mmol/L Arterial Blood Glucose 106 H (75-99) mg/dL Crossmatch See Detail 03/11/19 03/11/19 03/11/19 Range/Units 13:04 14:02 14:44 WBC (3.8-10.6) k/uL RBC (4.30-5.90) m/uL Hgb (13.0-17.5) gm/dL Hct (39.0-53.0) % Neutrophils # (1.3-7.7) k/uL Lymphocytes # (1.0-4.8) k/uL Monocytes # (0-1.0) k/uL ABG pCO2 (35-45) mmHg ABG pO2 400 H 131 H (83-108) mmHg ABG HCO3 (21-25) mmol/L ABG Total CO2 26 H 26 H (19-24) mmol/L ABG O2 Saturation 99.9 H 99.2 H (94-97) % ABG Hematocrit 25 L 29 L (34.0-46.0) % ABG Potassium 4.9 H (3.4-4.5) mmol/L ABG Ionized Calcium 4.2 L 3.5 L* (4.5-5.3) mg/dL ABG Glucose 194 H 164 H (75-99) mg/dL Hemoglobin 8.3 L 9.6 L (13.0-17.5) gm/dL Sodium (137-145) mmol/L Chloride (98-107) mmol/L BUN (9-20) mg/dL Glucose (74-99) mg/dL POC Glucose (mg/dL) 143 H (75-99) mg/dL Calcium (8.4-10.2) mg/dL Ionized Calcium Jeanie (4.5-5.3) mg/dL Magnesium (1.6-2.3) mg/dL AST (17-59) U/L Total Protein (6.3-8.2) g/dL Albumin (3.5-5.0) g/dL Arterial Blood Potassium 4.9 H (3.4-4.5) mmol/L Arterial Blood Glucose 194 H 164 H (75-99) mg/dL Crossmatch 03/11/19 03/11/19 03/11/19 Range/Units 14:45 14:45 15:14 WBC 13.0 H (3.8-10.6) k/uL RBC 3.29 L (4.30-5.90) m/uL Hgb 10.2 L D (13.0-17.5) gm/dL Hct 30.3 L (39.0-53.0) % Neutrophils # 11.3 H (1.3-7.7) k/uL Lymphocytes # (1.0-4.8) k/uL Monocytes # (0-1.0) k/uL ABG pCO2 (35-45) mmHg ABG pO2 (83-108) mmHg ABG HCO3 (21-25) mmol/L ABG Total CO2 (19-24) mmol/L ABG O2 Saturation (94-97) % ABG Hematocrit (34.0-46.0) % ABG Potassium (3.4-4.5) mmol/L ABG Ionized Calcium (4.5-5.3) mg/dL ABG Glucose (75-99) mg/dL Hemoglobin (13.0-17.5) gm/dL Sodium (137-145) mmol/L Chloride 109 H (98-107) mmol/L BUN 6 L (9-20) mg/dL Glucose 131 H (74-99) mg/dL POC Glucose (mg/dL) 148 H (75-99) mg/dL Calcium (8.4-10.2) mg/dL Ionized Calcium Jeanie 5.7 H (4.5-5.3) mg/dL Magnesium 2.5 H (1.6-2.3) mg/dL AST 16 L (17-59) U/L Total Protein 4.2 L (6.3-8.2) g/dL Albumin 2.4 L (3.5-5.0) g/dL Arterial Blood Potassium (3.4-4.5) mmol/L Arterial Blood Glucose (75-99) mg/dL Crossmatch 03/11/19 03/11/19 03/11/19 Range/Units 16:05 16:50 16:53 WBC (3.8-10.6) k/uL RBC (4.30-5.90) m/uL Hgb (13.0-17.5) gm/dL Hct (39.0-53.0) % Neutrophils # (1.3-7.7) k/uL Lymphocytes # (1.0-4.8) k/uL Monocytes # (0-1.0) k/uL ABG pCO2 48 H (35-45) mmHg ABG pO2 72 L (83-108) mmHg ABG HCO3 27 H (21-25) mmol/L ABG Total CO2 28 H (19-24) mmol/L ABG O2 Saturation (94-97) % ABG Hematocrit (34.0-46.0) % ABG Potassium (3.4-4.5) mmol/L ABG Ionized Calcium (4.5-5.3) mg/dL ABG Glucose (75-99) mg/dL Hemoglobin (13.0-17.5) gm/dL Sodium (137-145) mmol/L Chloride (98-107) mmol/L BUN (9-20) mg/dL Glucose (74-99) mg/dL POC Glucose (mg/dL) 155 H 150 H (75-99) mg/dL Calcium (8.4-10.2) mg/dL Ionized Calcium Jeanie (4.5-5.3) mg/dL Magnesium (1.6-2.3) mg/dL AST (17-59) U/L Total Protein (6.3-8.2) g/dL Albumin (3.5-5.0) g/dL Arterial Blood Potassium (3.4-4.5) mmol/L Arterial Blood Glucose (75-99) mg/dL Crossmatch 03/11/19 03/11/19 03/11/19 Range/Units 17:50 17:53 19:09 WBC 22.0 H (3.8-10.6) k/uL RBC 4.07 L (4.30-5.90) m/uL Hgb 12.8 L (13.0-17.5) gm/dL Hct 37.6 L (39.0-53.0) % Neutrophils # 19.3 H (1.3-7.7) k/uL Lymphocytes # (1.0-4.8) k/uL Monocytes # 1.2 H (0-1.0) k/uL ABG pCO2 (35-45) mmHg ABG pO2 (83-108) mmHg ABG HCO3 (21-25) mmol/L ABG Total CO2 (19-24) mmol/L ABG O2 Saturation (94-97) % ABG Hematocrit (34.0-46.0) % ABG Potassium (3.4-4.5) mmol/L ABG Ionized Calcium (4.5-5.3) mg/dL ABG Glucose (75-99) mg/dL Hemoglobin (13.0-17.5) gm/dL Sodium (137-145) mmol/L Chloride (98-107) mmol/L BUN (9-20) mg/dL Glucose (74-99) mg/dL POC Glucose (mg/dL) 161 H 130 H (75-99) mg/dL Calcium (8.4-10.2) mg/dL Ionized Calcium Jeanie (4.5-5.3) mg/dL Magnesium (1.6-2.3) mg/dL AST (17-59) U/L Total Protein (6.3-8.2) g/dL Albumin (3.5-5.0) g/dL Arterial Blood Potassium (3.4-4.5) mmol/L Arterial Blood Glucose (75-99) mg/dL Crossmatch 03/11/19 03/11/19 03/11/19 Range/Units 20:08 20:10 21:04 WBC 17.7 H (3.8-10.6) k/uL RBC 3.94 L (4.30-5.90) m/uL Hgb 12.3 L (13.0-17.5) gm/dL Hct 36.2 L (39.0-53.0) % Neutrophils # 15.9 H (1.3-7.7) k/uL Lymphocytes # 0.6 L (1.0-4.8) k/uL Monocytes # (0-1.0) k/uL ABG pCO2 (35-45) mmHg ABG pO2 (83-108) mmHg ABG HCO3 (21-25) mmol/L ABG Total CO2 (19-24) mmol/L ABG O2 Saturation (94-97) % ABG Hematocrit (34.0-46.0) % ABG Potassium (3.4-4.5) mmol/L ABG Ionized Calcium (4.5-5.3) mg/dL ABG Glucose (75-99) mg/dL Hemoglobin (13.0-17.5) gm/dL Sodium (137-145) mmol/L Chloride (98-107) mmol/L BUN (9-20) mg/dL Glucose (74-99) mg/dL POC Glucose (mg/dL) 139 H 125 H (75-99) mg/dL Calcium (8.4-10.2) mg/dL Ionized Calcium Jeanie (4.5-5.3) mg/dL Magnesium (1.6-2.3) mg/dL AST (17-59) U/L Total Protein (6.3-8.2) g/dL Albumin (3.5-5.0) g/dL Arterial Blood Potassium (3.4-4.5) mmol/L Arterial Blood Glucose (75-99) mg/dL Crossmatch 03/11/19 03/11/19 03/12/19 Range/Units 22:07 23:06 00:21 WBC (3.8-10.6) k/uL RBC (4.30-5.90) m/uL Hgb (13.0-17.5) gm/dL Hct (39.0-53.0) % Neutrophils # (1.3-7.7) k/uL Lymphocytes # (1.0-4.8) k/uL Monocytes # (0-1.0) k/uL ABG pCO2 (35-45) mmHg ABG pO2 (83-108) mmHg ABG HCO3 (21-25) mmol/L ABG Total CO2 (19-24) mmol/L ABG O2 Saturation (94-97) % ABG Hematocrit (34.0-46.0) % ABG Potassium (3.4-4.5) mmol/L ABG Ionized Calcium (4.5-5.3) mg/dL ABG Glucose (75-99) mg/dL Hemoglobin (13.0-17.5) gm/dL Sodium (137-145) mmol/L Chloride (98-107) mmol/L BUN (9-20) mg/dL Glucose (74-99) mg/dL POC Glucose (mg/dL) 119 H 123 H 128 H (75-99) mg/dL Calcium (8.4-10.2) mg/dL Ionized Calcium Jeanie (4.5-5.3) mg/dL Magnesium (1.6-2.3) mg/dL AST (17-59) U/L Total Protein (6.3-8.2) g/dL Albumin (3.5-5.0) g/dL Arterial Blood Potassium (3.4-4.5) mmol/L Arterial Blood Glucose (75-99) mg/dL Crossmatch 03/12/19 03/12/19 03/12/19 Range/Units 00:54 02:59 04:08 WBC (3.8-10.6) k/uL RBC (4.30-5.90) m/uL Hgb (13.0-17.5) gm/dL Hct (39.0-53.0) % Neutrophils # (1.3-7.7) k/uL Lymphocytes # (1.0-4.8) k/uL Monocytes # (0-1.0) k/uL ABG pCO2 (35-45) mmHg ABG pO2 (83-108) mmHg ABG HCO3 (21-25) mmol/L ABG Total CO2 (19-24) mmol/L ABG O2 Saturation (94-97) % ABG Hematocrit (34.0-46.0) % ABG Potassium (3.4-4.5) mmol/L ABG Ionized Calcium (4.5-5.3) mg/dL ABG Glucose (75-99) mg/dL Hemoglobin (13.0-17.5) gm/dL Sodium (137-145) mmol/L Chloride (98-107) mmol/L BUN (9-20) mg/dL Glucose (74-99) mg/dL POC Glucose (mg/dL) 120 H 110 H 133 H (75-99) mg/dL Calcium (8.4-10.2) mg/dL Ionized Calcium Jeanie (4.5-5.3) mg/dL Magnesium (1.6-2.3) mg/dL AST (17-59) U/L Total Protein (6.3-8.2) g/dL Albumin (3.5-5.0) g/dL Arterial Blood Potassium (3.4-4.5) mmol/L Arterial Blood Glucose (75-99) mg/dL Crossmatch 03/12/19 03/12/19 03/12/19 Range/Units 04:12 04:12 05:10 WBC 12.4 H (3.8-10.6) k/uL RBC 3.88 L (4.30-5.90) m/uL Hgb 12.1 L (13.0-17.5) gm/dL Hct 35.5 L (39.0-53.0) % Neutrophils # 10.6 H (1.3-7.7) k/uL Lymphocytes # (1.0-4.8) k/uL Monocytes # (0-1.0) k/uL ABG pCO2 (35-45) mmHg ABG pO2 (83-108) mmHg ABG HCO3 (21-25) mmol/L ABG Total CO2 (19-24) mmol/L ABG O2 Saturation (94-97) % ABG Hematocrit (34.0-46.0) % ABG Potassium (3.4-4.5) mmol/L ABG Ionized Calcium (4.5-5.3) mg/dL ABG Glucose (75-99) mg/dL Hemoglobin (13.0-17.5) gm/dL Sodium 135 L (137-145) mmol/L Chloride (98-107) mmol/L BUN 8 L (9-20) mg/dL Glucose 114 H (74-99) mg/dL POC Glucose (mg/dL) 132 H (75-99) mg/dL Calcium 8.3 L (8.4-10.2) mg/dL Ionized Calcium Jeanie (4.5-5.3) mg/dL Magnesium (1.6-2.3) mg/dL AST (17-59) U/L Total Protein 5.4 L (6.3-8.2) g/dL Albumin 3.3 L (3.5-5.0) g/dL Arterial Blood Potassium (3.4-4.5) mmol/L Arterial Blood Glucose (75-99) mg/dL Crossmatch 03/12/19 03/12/19 Range/Units 05:51 07:00 WBC (3.8-10.6) k/uL RBC (4.30-5.90) m/uL Hgb (13.0-17.5) gm/dL Hct (39.0-53.0) % Neutrophils # (1.3-7.7) k/uL Lymphocytes # (1.0-4.8) k/uL Monocytes # (0-1.0) k/uL ABG pCO2 (35-45) mmHg ABG pO2 (83-108) mmHg ABG HCO3 (21-25) mmol/L ABG Total CO2 (19-24) mmol/L ABG O2 Saturation (94-97) % ABG Hematocrit (34.0-46.0) % ABG Potassium (3.4-4.5) mmol/L ABG Ionized Calcium (4.5-5.3) mg/dL ABG Glucose (75-99) mg/dL Hemoglobin (13.0-17.5) gm/dL Sodium (137-145) mmol/L Chloride (98-107) mmol/L BUN (9-20) mg/dL Glucose (74-99) mg/dL POC Glucose (mg/dL) 131 H 126 H (75-99) mg/dL Calcium (8.4-10.2) mg/dL Ionized Calcium Jeanie (4.5-5.3) mg/dL Magnesium (1.6-2.3) mg/dL AST (17-59) U/L Total Protein (6.3-8.2) g/dL Albumin (3.5-5.0) g/dL Arterial Blood Potassium (3.4-4.5) mmol/L Arterial Blood Glucose (75-99) mg/dL Crossmatch - Imaging and Cardiology Chest x-ray: report reviewed, image reviewed Assessment and Plan Assessment: 1. Aortic valve mass, s/p removal of aortic valve mass attached to noncoronary cusp, clip ligation of the left atrial appendage with a #35 mm AtriaClip and inoperative ALTHEA 2. History of [place] with VF arrest wit stent to LAD 3. Hypertension 4. Hyperlipidemia 5. Arthritis 6. Current 1ppd smoker Plan: 1. Wean O2 as tolerated to maintain SPO2 > 90%, encourage IS 10 x hour while awake. 2. Removal of cordis/swan, arterial line, liz and pacer wires 3. Maintain CT to -20cm H2O suction 4. Continue ASA, statin, BB. Likely will increase beta rebecca 5. Advance diet as tolerated 6. Increase activity, encourage ambulation in hallway. PT/OT/cardiac rehab following. 7. Continue VTE prophylaxis -Elmer hose, SCD's, and Heparin SQ 8. Continue GI prophylaxis - Change Protonix to 40mg PO AC breakfast 9. Insulin management per primary care service 10. Smoking cessation education 11. Pain control with current regimen. 12. Will place transfer orders for 3 [facility] cardiac step down unit. May transfer when bed available. 13. More recommendations to follo Time with Patient: Greater than 30
[2019-03-12 10:20] VITALS: BMI 31.4
[2019-03-12 12:02] LABS: Glucose,Whole Blood 65 mg/dL (75-99)
[2019-03-12] MEDS: LACTATED RINGERS 1,000 ML IV SCH (12:02)
--- NOTE | 2019-03-12 12:59 | CONS ---
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 He has history of hypertension, dyslipidemia, coronary artery disease, status post prior angioplasty. PAST MEDICAL HISTORY: His past medical history is significant for coronary artery disease, status post angioplasty, hypertension, and dyslipidemia. MEDICATIONS: Current medications include Lipitor, Lopressor and aspirin. ALLERGIES: There are no known drug allergies. FAMILY HISTORY: Family history is negative for premature coronary artery disease. SOCIAL HISTORY: Social history is negative for smoking, EtOH abuse, or drug abuse. REVIEW OF SYSTEMS: HEENT is unremarkable. CARDIAC: As described above. RESPIRATORY: As described above. GI: Negative. GENITOURINARY: Negative. ALLERGY/IMMUNOLOGY: Negative. SKIN: Negative. MUSCULOSKELETAL: Significant for arthritis. PSYCHOSOCIAL: Negative. ENDOCRINE: Negative DERM: Negative. CONSTITUTIONAL: Negative. ONCOLOGICAL: Negative. Rest of the system review is not relevant. PHYSICAL EXAMINATION: On exam, comfortable at rest. Vital signs are stable. There is no jugular venous distention. Chest exam reveals diminished air entry at the bases. Heart exam reveals first and second heart sounds. No gallop. No murmur. Abdomen is soft. Examination of extremities did not reveal any edema. Peripheral pulses are felt. LABS: Labs show that the hemoglobin is 12.1, platelet count is 219. Potassium is 4. Creatinine is 0.7. AST, ALT are within normal limits. ASSESSMENT: 1. Fibroelastoma of the aortic valve, status post resection. 2. Coronary artery disease, status post angioplasty. 3. Dyslipidemia. PLAN: Patient is doing well. We will continue with his current medications. He is postop day #1. MMODL / IJN: [id number] /
[2019-03-12 14:49] LABS: Glucose,Whole Blood 147 mg/dL (75-99)
--- NOTE | 2019-03-12 14:56 | P.PN ---
Subjective Progress Note Date: 03/12/19 A 53-year-old male patient with a mobile aortic valve mass was taken to the operating room today and the patient underwent removal of aortic valve mass attached to the noncoronary Cusp. The patient has history of hypertension, hyperlipidemia, coronary artery disease and is post coronary stenting. He is a smoker. He was having increased fatigue over the past 6 months. He denied having any chest pain. No chest pressure pain no palpitation. No dizziness and no vertigo. Stress test showed reversible defect along the inferior wall. Previous echocardiogram also showed a mobile echodensity along the aortic valve. 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 Normal LV function was noted. There was a patent foramen ovale with a [id number] shunt. The rest of the valvular structures were all within normal limits. A preoperative coronary angiogram showed patent stent to a med LAD. Following the surgery the patient was brought into the intensive care unit for further evaluation and weaning off the mechanical ventilator. At the time of his arrival, the patient was on assist control mode of ventilation. The patient was gradually weaned off the sedation. The patient was awake and following commands. He is weaning parameters were excellent with a temperature breathing index of 53. Subsequently was given a spontaneous breathing trial with a pressure support of 5 and a PEEP of 5 and the patient was found to have a pH of 7.35 with a pCO2 of 47 and pO2 of 71. At that point, the patient was extubated. The chest x-ray showed postoperative changes with adequate positioning of the mediastinal drains and tubes. As such, the patient was extubated. The patient has a cardiac output of 6.1. He is currently on Levophed Drip for blood pressure control. He a pressures are 32/20. He is single mediastinal chest tube and output has been minimal since his arrival from the operating room. He is awake and alert and is following commands and answering questions appropriately. On 03/12/2019, the patient is postop day #1 and the patient has no specific complaints. The patient is doing well. The patient is still [place]-Bhavya catheter in place. The cardiac output is around 5.3. The patient is hemodynamically stable. Chest x-ray from today shows no acute abnormalities. Output from the chest tube is minimal and the total amount of output since he came from the operating room is around 300 mL of serosanguineous drainage. No evidence of any air leak. He is pulling approximately 600 mL on his incentive spirometer. Is currently on 6 L of oxygen by nasal cannula with a pulse of 98%. His cardiac rhythm is sinus. Sternum stable clean and intact. His communicating. No focal neurological deficit. No headache. No nausea or vomiting. No significant shortness of breath. He is afebrile. He was also taken off that Cleviprex drip as the patient's blood pressures currently well-controlled. Objective - Vital Signs Vital signs: Vital Signs Temp 98.8 F 03/12/19 08:00 Pulse 88 03/12/19 11:30 Resp 25 H 03/12/19 11:00 BP 106/76 03/12/19 11:00 Pulse Ox 98 03/12/19 11:00 Intake & Output 03/11/19 03/12/19 03/12/19 18:59 06:59 18:59 Intake Total 482.050 8179.877 494.389 Output Total 3620 1735 205 Balance -2969.086 -705.123 289.389 Weight 80.6 kg 80.6 kg Intake: IV 628 888 482 ACETAMINOPHEN IV (For NPO 100 50 ) 1,000 mg In Empty Bag 1 bag @ 400 mls/hr IVPB Q6HR [facility] Rx#:[id number] CO/CI 80 210 Lactated Ringers 1,000 ml 200 600 200 @ 50 mls/hr IV .Q20H [facility] Rx#:[id number] Pressure Bag 27 108 72 ceFAZolin 2 gm In Sodium 50 50 Chloride 0.9% 50 ml @ 100 mls/hr IVPB Q8HR [facility] Rx# :[id number] Intake, IV Titration 22.914 141.877 12.389 Amount Clevidipine Butyrate 25 15.466 130.800 mg In Empty Bag 1 bag @ 1 MG/HR 2 mls/hr IV .Q24H [facility] Rx#:[id number] Insulin Regular 100 unit 4.545 11.077 12.389 In Sodium Chloride 0.9% 100 ml @ Per Protocol IV .Q0M [facility] Rx#:[id number] Propofol 1,000 mg In 2.903 Empty Bag 1 bag @ Titrate IV .Q0M [facility] Rx#: [id number] Output: Chest Tube Drainage 70 190 30 Chest Tube Mediastinal 70 190 30 Urine 2350 1545 175 Estimated Blood Loss 1200 Other: Voiding Method Indwelling Catheter Indwelling Catheter Indwelling Catheter ABP, PAP, CO, CI - Last Documented Arterial Blood Pressure 98/65 Pulmonary Artery Pressure 36/21 Cardiac Output 5.3 Cardiac Index 3 - Exam - Constitutional General appearance: Present: cooperative, no acute distress - Respiratory Details: Lungs clear to auscultation, but diminished to bases bilaterally. No wheezes or rhonchi noted. Mediastinal chest tube in place with minimal sero/sang drainage present, no air leak or crepitus present. IS at bedside and encouraged 10 x every hour. Patient encouraged to cough and deep breath splinting chest with heart hugger. - Cardiovascular Details: Regular rate and rhythm, S1, S1 heart sounds present. No murmurs or friction rubs noted. No peripheral edema. Extremities warm to touch, +2 pulses x 4 extremities. Capillary refill < 3 sec. Sternum stable. Right IR cordis swan, and right radial arterial line present. - Gastrointestinal Gastrointestinal Comment(s): Abdomen soft, non-tender. Hypoactive bowel sounds present. Denies flatus. No nausea or vomiting. Tolerating clear liquid diet. - Genitourinary Genitourinary Comment(s): Bolanos catheter present, draining clear yellow urine. Urine output approximately 100cc/hours. - Neurologic Neurologic Comment(s): Alert and oriented x 3, calm and cooperative. - Musculoskeletal Musculoskeletal: Present: generalized weakness - Psychiatric Psychiatric: Present: A&O x's 3, appropriate affect, intact judgment & insight - Labs CBC & Chem 7: 03/12/19 04:12 03/12/19 04:12 Labs: Abnormal Lab Results - Last 24 Hours (Table) 03/03/19 03/11/19 03/11/19 Range/Units 09:00 14:45 14:45 WBC 13.0 H (3.8-10.6) k/uL RBC 3.29 L (4.30-5.90) m/uL Hgb 10.2 L D (13.0-17.5) gm/dL Hct 30.3 L (39.0-53.0) % Neutrophils # 11.3 H (1.3-7.7) k/uL Lymphocytes # (1.0-4.8) k/uL Monocytes # (0-1.0) k/uL ABG pCO2 (35-45) mmHg ABG pO2 (83-108) mmHg ABG HCO3 (21-25) mmol/L ABG Total CO2 (19-24) mmol/L Sodium (137-145) mmol/L Chloride 109 H (98-107) mmol/L BUN 6 L (9-20) mg/dL Glucose 131 H (74-99) mg/dL POC Glucose (mg/dL) (75-99) mg/dL Calcium (8.4-10.2) mg/dL Ionized Calcium Jeanie 5.7 H (4.5-5.3) mg/dL Magnesium 2.5 H (1.6-2.3) mg/dL AST 16 L (17-59) U/L Total Protein 4.2 L (6.3-8.2) g/dL Albumin 2.4 L (3.5-5.0) g/dL Crossmatch See Detail 03/11/19 03/11/19 03/11/19 Range/Units 15:14 16:05 16:50 WBC (3.8-10.6) k/uL RBC (4.30-5.90) m/uL Hgb (13.0-17.5) gm/dL Hct (39.0-53.0) % Neutrophils # (1.3-7.7) k/uL Lymphocytes # (1.0-4.8) k/uL Monocytes # (0-1.0) k/uL ABG pCO2 48 H (35-45) mmHg ABG pO2 72 L (83-108) mmHg ABG HCO3 27 H (21-25) mmol/L ABG Total CO2 28 H (19-24) mmol/L Sodium (137-145) mmol/L Chloride (98-107) mmol/L BUN (9-20) mg/dL Glucose (74-99) mg/dL POC Glucose (mg/dL) 148 H 155 H (75-99) mg/dL Calcium (8.4-10.2) mg/dL Ionized Calcium Jeanie (4.5-5.3) mg/dL Magnesium (1.6-2.3) mg/dL AST (17-59) U/L Total Protein (6.3-8.2) g/dL Albumin (3.5-5.0) g/dL Crossmatch 03/11/19 03/11/19 03/11/19 Range/Units 16:53 17:50 17:53 WBC 22.0 H (3.8-10.6) k/uL RBC 4.07 L (4.30-5.90) m/uL Hgb 12.8 L (13.0-17.5) gm/dL Hct 37.6 L (39.0-53.0) % Neutrophils # 19.3 H (1.3-7.7) k/uL Lymphocytes # (1.0-4.8) k/uL Monocytes # 1.2 H (0-1.0) k/uL ABG pCO2 (35-45) mmHg ABG pO2 (83-108) mmHg ABG HCO3 (21-25) mmol/L ABG Total CO2 (19-24) mmol/L Sodium (137-145) mmol/L Chloride (98-107) mmol/L BUN (9-20) mg/dL Glucose (74-99) mg/dL POC Glucose (mg/dL) 150 H 161 H (75-99) mg/dL Calcium (8.4-10.2) mg/dL Ionized Calcium Jeanie (4.5-5.3) mg/dL Magnesium (1.6-2.3) mg/dL AST (17-59) U/L Total Protein (6.3-8.2) g/dL Albumin (3.5-5.0) g/dL Crossmatch 03/11/19 03/11/19 03/11/19 Range/Units 19:09 20:08 20:10 WBC 17.7 H (3.8-10.6) k/uL RBC 3.94 L (4.30-5.90) m/uL Hgb 12.3 L (13.0-17.5) gm/dL Hct 36.2 L (39.0-53.0) % Neutrophils # 15.9 H (1.3-7.7) k/uL Lymphocytes # 0.6 L (1.0-4.8) k/uL Monocytes # (0-1.0) k/uL ABG pCO2 (35-45) mmHg ABG pO2 (83-108) mmHg ABG HCO3 (21-25) mmol/L ABG Total CO2 (19-24) mmol/L Sodium (137-145) mmol/L Chloride (98-107) mmol/L BUN (9-20) mg/dL Glucose (74-99) mg/dL POC Glucose (mg/dL) 130 H 139 H (75-99) mg/dL Calcium (8.4-10.2) mg/dL Ionized Calcium Jeanie (4.5-5.3) mg/dL Magnesium (1.6-2.3) mg/dL AST (17-59) U/L Total Protein (6.3-8.2) g/dL Albumin (3.5-5.0) g/dL Crossmatch 03/11/19 03/11/19 03/11/19 Range/Units 21:04 22:07 23:06 WBC (3.8-10.6) k/uL RBC (4.30-5.90) m/uL Hgb (13.0-17.5) gm/dL Hct (39.0-53.0) % Neutrophils # (1.3-7.7) k/uL Lymphocytes # (1.0-4.8) k/uL Monocytes # (0-1.0) k/uL ABG pCO2 (35-45) mmHg ABG pO2 (83-108) mmHg ABG HCO3 (21-25) mmol/L ABG Total CO2 (19-24) mmol/L Sodium (137-145) mmol/L Chloride (98-107) mmol/L BUN (9-20) mg/dL Glucose (74-99) mg/dL POC Glucose (mg/dL) 125 H 119 H 123 H (75-99) mg/dL Calcium (8.4-10.2) mg/dL Ionized Calcium Jeanie (4.5-5.3) mg/dL Magnesium (1.6-2.3) mg/dL AST (17-59) U/L Total Protein (6.3-8.2) g/dL Albumin (3.5-5.0) g/dL Crossmatch 03/12/19 03/12/19 03/12/19 Range/Units 00:21 00:54 02:59 WBC (3.8-10.6) k/uL RBC (4.30-5.90) m/uL Hgb (13.0-17.5) gm/dL Hct (39.0-53.0) % Neutrophils # (1.3-7.7) k/uL Lymphocytes # (1.0-4.8) k/uL Monocytes # (0-1.0) k/uL ABG pCO2 (35-45) mmHg ABG pO2 (83-108) mmHg ABG HCO3 (21-25) mmol/L ABG Total CO2 (19-24) mmol/L Sodium (137-145) mmol/L Chloride (98-107) mmol/L BUN (9-20) mg/dL Glucose (74-99) mg/dL POC Glucose (mg/dL) 128 H 120 H 110 H (75-99) mg/dL Calcium (8.4-10.2) mg/dL Ionized Calcium Jeanie (4.5-5.3) mg/dL Magnesium (1.6-2.3) mg/dL AST (17-59) U/L Total Protein (6.3-8.2) g/dL Albumin (3.5-5.0) g/dL Crossmatch 03/12/19 03/12/19 03/12/19 Range/Units 04:08 04:12 04:12 WBC 12.4 H (3.8-10.6) k/uL RBC 3.88 L (4.30-5.90) m/uL Hgb 12.1 L (13.0-17.5) gm/dL Hct 35.5 L (39.0-53.0) % Neutrophils # 10.6 H (1.3-7.7) k/uL Lymphocytes # (1.0-4.8) k/uL Monocytes # (0-1.0) k/uL ABG pCO2 (35-45) mmHg ABG pO2 (83-108) mmHg ABG HCO3 (21-25) mmol/L ABG Total CO2 (19-24) mmol/L Sodium 135 L (137-145) mmol/L Chloride (98-107) mmol/L BUN 8 L (9-20) mg/dL Glucose 114 H (74-99) mg/dL POC Glucose (mg/dL) 133 H (75-99) mg/dL Calcium 8.3 L (8.4-10.2) mg/dL Ionized Calcium Jeanie (4.5-5.3) mg/dL Magnesium (1.6-2.3) mg/dL AST (17-59) U/L Total Protein 5.4 L (6.3-8.2) g/dL Albumin 3.3 L (3.5-5.0) g/dL Crossmatch 03/12/19 03/12/19 03/12/19 Range/Units 05:10 05:51 07:00 WBC (3.8-10.6) k/uL RBC (4.30-5.90) m/uL Hgb (13.0-17.5) gm/dL Hct (39.0-53.0) % Neutrophils # (1.3-7.7) k/uL Lymphocytes # (1.0-4.8) k/uL Monocytes # (0-1.0) k/uL ABG pCO2 (35-45) mmHg ABG pO2 (83-108) mmHg ABG HCO3 (21-25) mmol/L ABG Total CO2 (19-24) mmol/L Sodium (137-145) mmol/L Chloride (98-107) mmol/L BUN (9-20) mg/dL Glucose (74-99) mg/dL POC Glucose (mg/dL) 132 H 131 H 126 H (75-99) mg/dL Calcium (8.4-10.2) mg/dL Ionized Calcium Jeanie (4.5-5.3) mg/dL Magnesium (1.6-2.3) mg/dL AST (17-59) U/L Total Protein (6.3-8.2) g/dL Albumin (3.5-5.0) g/dL Crossmatch 03/12/19 03/12/19 03/12/19 Range/Units 09:05 12:00 14:38 WBC (3.8-10.6) k/uL RBC (4.30-5.90) m/uL Hgb (13.0-17.5) gm/dL Hct (39.0-53.0) % Neutrophils # (1.3-7.7) k/uL Lymphocytes # (1.0-4.8) k/uL Monocytes # (0-1.0) k/uL ABG pCO2 (35-45) mmHg ABG pO2 (83-108) mmHg ABG HCO3 (21-25) mmol/L ABG Total CO2 (19-24) mmol/L Sodium (137-145) mmol/L Chloride (98-107) mmol/L BUN (9-20) mg/dL Glucose (74-99) mg/dL POC Glucose (mg/dL) 209 H 65 L 147 H (75-99) mg/dL Calcium (8.4-10.2) mg/dL Ionized Calcium Jeanie (4.5-5.3) mg/dL Magnesium (1.6-2.3) mg/dL AST (17-59) U/L Total Protein (6.3-8.2) g/dL Albumin (3.5-5.0) g/dL Crossmatch Assessment and Plan Plan: 1 aortic valve mass status post thoracotomy and resection of an aortic valve mass involving the noncoronary cusp. The patient is postop day #1. Noted the patient also had Ligation of the left atrial appendage. The patient is hemodynamically stable. His adequate cardiac output. He has no significant output from the mediastinal chest tube and there has been no other significant events overnight. 2 post thoracotomy. The patient was extubated within a few hours of arrival to the intensive care unit. Currently on 6 L of oxygen by nasal cannula. 3 history of coronary artery disease with stenting of the LAD 4 hypertension, placed on a chiropractor postop and currently is off the Keflex. 5 hyperlipidemia 6 osteoarthritis Plan Remove the [place]-Bhavya catheter. May consider removing the mediastinal chest tube. We'll remove the Bolanos catheter. We'll wean down the FiO2 to maintain saturation above 90%. Encourage use of incentive spirometer. Routine postoperative care and management. In ICU for another 24 hours. We'll continue to follow.
[2019-03-12 18:18] LABS: Glucose,Whole Blood 159 mg/dL (75-99)
[2019-03-12] MEDS: METOPROLOL TARTRATE 25 MG TAB PO SCH ×2 (18:27→23:19)
[2019-03-12 20:17] LABS: Glucose,Whole Blood 151 mg/dL (75-99)
[2019-03-12] MEDS: INSULIN ASPART (NovoLOG) 100 UNIT/ML VIAL SQ SCH (20:45)
[2019-03-12] MEDS: SENNOSIDES-DOCUSATE SODIUM 1 EACH TAB PO SCH (20:45)
[2019-03-13] MEDS: INSULIN ASPART (NovoLOG) 100 UNIT/ML VIAL SQ SCH ×5 (03:28→21:26)
[2019-03-13] MEDS: KETOROLAC 30 MG/ML 1 ML VIAL IVP SCH ×4 (06:08→23:03)
[2019-03-13] MEDS: PANTOPRAZOLE 40 MG TABLET PO SCH (06:08)
[2019-03-13 06:26] LABS: Glucose,Whole Blood 172 mg/dL (75-99)
[2019-03-13] MEDS ORDERED: ACETAMINOPHEN TAB 500 MG TAB PO PRN (06:38)
[2019-03-13 07:18] LABS: Basophils % (A) 0 %; Eosinophils % (A) 0 %; HCT 34.8 % (39.0-53.0); HGB 11.7 gm/dL (13.0-17.5); Lymphocytes # (A) 0.9 k/uL (1.0-4.8); Lymphocytes % (A) 7 %; MCH 31.4 pg (25.0-35.0); MCHC 33.6 g/dL (31.0-37.0); MCV 93.6 fL (80.0-100.0); Mean Platelet Volume 5.7; Monocytes # (A) 0.8 k/uL (0-1.0); Monocytes % (A) 6 %; Neutrophils # (A) 11.7 k/uL (1.3-7.7); Neutrophils % (A) 86 %; Platelet Count 206 k/uL (150-450); RBC 3.72 m/uL (4.30-5.90); RDW 12.4 % (11.5-15.5); WBC 13.5 k/uL (3.8-10.6)
[2019-03-13 07:26] LABS: Ionized Calcium 4.7 mg/dL (4.5-5.3)
[2019-03-13 07:39] LABS: ALT 23 U/L (21-72); AST 39 U/L (17-59); African American GFR (CKD) >90 (>60 ml/min/1.73 sqM); Alkaline Phosphatase 52 U/L (38-126); Anion Gap 5 mmol/L; Blood Urea Nitrogen 8 mg/dL (9-20); Calcium 8.7 mg/dL (8.4-10.2); Carbon Dioxide 30 mmol/L (22-30); Chloride 103 mmol/L (98-107); Glucose 112 mg/dL (74-99); Potassium 4.3 mmol/L (3.5-5.1); Sodium 138 mmol/L (137-145); Total Bilirubin 0.7 mg/dL (0.2-1.3); Total Protein 5.3 g/dL (6.3-8.2)
[2019-03-13] MEDS: IPRATROPIUM-ALBUTEROL 3 ML NEB INHALATION SCH ×4 (08:01→20:44)
--- NOTE | 2019-03-13 08:18 | P.PN ---
Subjective Progress Note Date: 03/13/19 Principal diagnosis: Aortic valve mass, fibroelastoma of the noncoronary cusp. Previous medical history of coronary artery disease with myocardial infarction with VF arrest (2013), stent to LAD, hypertension, hyperlipidemia, current tobacco dependence with FEV1 85%, depression, and arthritis. POD 1 removal of aortic valve mass attached to the noncoronary cusp, clip ligation of the left atrial appendage with a #35 mm AtriClip and intraoperative ALTHEA. The patient is currently sitting in a recliner eating breakfast in no acute distress on the cardiac step-down unit. He was transferred out of ICU last night. States pain is controlled on current medication regimen, has only asked for pain medication once in the last 24 hours. Denies shortness of breath. Pacemaker wires, swan/cordis, arterial line, and liz catheter were discontinued yesterday. Mediastinal chest tube remains. Patient has been ambulatory in the hallway without difficulty. No new concerns. Objective - Vital Signs Vital signs: Vital Signs Temp 98.2 F 03/13/19 03:30 Pulse 99 03/13/19 03:30 Resp 18 03/13/19 03:30 BP 111/74 03/13/19 03:30 Pulse Ox 95 03/13/19 03:30 Intake & Output 03/12/19 03/13/19 03/13/19 18:59 06:59 18:59 Intake Total 553.389 Output Total 550 250 Balance 3.389 -250 Weight 80.6 kg Intake: IV 541 CO/CI 210 Lactated Ringers 1,000 ml 250 @ 50 mls/hr IV .Q20H [facility] Rx#:[id number] Pressure Bag 81 Intake, IV Titration 12.389 Amount Insulin Regular 100 unit 12.389 In Sodium Chloride 0.9% 100 ml @ Per Protocol IV .Q0M [facility] Rx#:[id number] Output: Chest Tube Drainage 30 Chest Tube Mediastinal 30 Urine 520 250 Other: Voiding Method Indwelling Catheter Urinal # Voids 0 1 ABP, PAP, CO, CI - Last Documented Arterial Blood Pressure 98/65 Pulmonary Artery Pressure 36/21 Cardiac Output 5.3 Cardiac Index 3 - Constitutional General appearance: Present: cooperative, no acute distress - Respiratory Details: Lung sounds diminished bilaterally. Respirations even, non-labored. Currently on 4 LPM NC with oxygen saturation 95%. Strong cough. - Cardiovascular Details: S1/S2 present. Regular rate/rhythm, normal sinus rhythm on telemetry. Sternum stable. Palpable peripheral pulses bilaterally. No edema present. No calf pain or tenderness noted. Heart hugger in place with patient demonstrating appropriate use. Anti-embolism stockings, SCDs present. Mediastinal chest tube present, 20 mL serosanguinous drainage overnight, 120 mL in the last 24 hours, no air leak present. - Gastrointestinal Gastrointestinal Comment(s): Abdomen soft, non-tender, non-distended. Active bowel sounds present x 4 quadrants. Tolerating diet. Positive flatus, negative bowel movement. - Genitourinary Genitourinary Comment(s): Continues to void clear, yellow urine. - Integumentary Integumentary Comment(s): Skin is warm and dry with evidence of good perfusion. Anterior chest incision well approximated and covered with intact dressing. - Neurologic Neurologic: Present: CNII-XII intact - Musculoskeletal Musculoskeletal: Present: gait normal, strength equal bilaterally - Psychiatric Psychiatric: Present: A&O x's 3, appropriate affect, intact judgment & insight - Allied health notes Allied health notes reviewed: nursing - Labs CBC & Chem 7: 03/13/19 06:12 03/13/19 06:12 Labs: Abnormal Lab Results - Last 24 Hours (Table) 03/12/19 03/12/19 03/12/19 Range/Units 09:05 12:00 14:38 WBC (3.8-10.6) k/uL RBC (4.30-5.90) m/uL Hgb (13.0-17.5) gm/dL Hct (39.0-53.0) % Neutrophils # (1.3-7.7) k/uL Lymphocytes # (1.0-4.8) k/uL BUN (9-20) mg/dL Glucose (74-99) mg/dL POC Glucose (mg/dL) 209 H 65 L 147 H (75-99) mg/dL Total Protein (6.3-8.2) g/dL Albumin (3.5-5.0) g/dL 03/12/19 03/12/19 03/13/19 Range/Units 18:16 20:16 06:12 WBC 13.5 H (3.8-10.6) k/uL RBC 3.72 L (4.30-5.90) m/uL Hgb 11.7 L (13.0-17.5) gm/dL Hct 34.8 L (39.0-53.0) % Neutrophils # 11.7 H (1.3-7.7) k/uL Lymphocytes # 0.9 L (1.0-4.8) k/uL BUN (9-20) mg/dL Glucose (74-99) mg/dL POC Glucose (mg/dL) 159 H 151 H (75-99) mg/dL Total Protein (6.3-8.2) g/dL Albumin (3.5-5.0) g/dL 03/13/19 03/13/19 Range/Units 06:12 06:25 WBC (3.8-10.6) k/uL RBC (4.30-5.90) m/uL Hgb (13.0-17.5) gm/dL Hct (39.0-53.0) % Neutrophils # (1.3-7.7) k/uL Lymphocytes # (1.0-4.8) k/uL BUN 8 L (9-20) mg/dL Glucose 112 H (74-99) mg/dL POC Glucose (mg/dL) 172 H (75-99) mg/dL Total Protein 5.3 L (6.3-8.2) g/dL Albumin 3.0 L (3.5-5.0) g/dL - Imaging and Cardiology Chest x-ray: image reviewed Assessment and Plan Assessment: 1. Aortic valve mass, fibroelastoma of the noncoronary cusp, status post removal 2. History of coronary artery disease with myocardial infarction with VF arrest in 2013, stent to the LAD 3. Hypertension 4. Hyperlipidemia 5. Current tobacco dependence with FEV1 85% of predicted 6. Depression, currently on no medication 7. Arthritis Plan: 1. Continue aspirin, statin, beta rebecca. Will increase beta rebecca therapy as tolerated, increased today to 50 mg BID 2. Wean O2 as tolerated. Encourage incentive spirometry 10 x hour while awake. 3. Increase activity, encourage ambulation. PT/OT/cardiac rehab following. 4. Bronchodilators per pulmonology. Encourage smoking cessation 5. Pain control with current medication regimen 6. Insulin management per primary care service 7. GI/DVT prophylaxis 8. Will monitor daily labs, x-rays. Electrolyte replacement per protocol. 9. Will discontinue mediastinal chest tube today. 10. Discharge planning in progress. Anticipate discharge to home with home care in the next 24-48 hours. 11. More recommendations to follow Time with Patient: Greater than 30
[2019-03-13] MEDS: METOPROLOL TARTRATE 50 MG TAB PO SCH ×2 (08:27→20:10)
[2019-03-13] MEDS: ASPIRIN 325 MG TAB PO SCH (08:27)
[2019-03-13] MEDS: HEPARIN SODIUM,PORCINE 5,000 UNIT/ML 1 ML VIAL SQ SCH ×3 (08:27→23:03)
[2019-03-13] MEDS: ATORVASTATIN 40 MG TAB PO SCH (08:27)
--- NOTE | 2019-03-13 09:28 | XR ---
EXAMINATION TYPE: XR chest 1V portable DATE OF EXAM: 03/13/2019 COMPARISON: 03/12/2019 HISTORY: Post cardiac surgery TECHNIQUE: Single frontal view of the chest is obtained. FINDINGS: Bilateral consolidation and pleural effusion. Mild central interstitial prominence. Medias tinal drain noted. Hustle-Bhavya catheters been removed. Postsurgical changes seen. No sizable pneumothor ax. IMPRESSION: 1. Postsurgical change with bilateral infiltrate and pleural effusion. Mild central venous congestion not excluded.
--- NOTE | 2019-03-13 10:21 | PN ---
PROGRESS NOTE This is a 53-year-old gentleman who is postop day #2 following surgical resection of fibroelastoma of the aortic valve. This morning he is doing well. Denies any symptoms. PHYSICAL EXAMINATION: On exam, vital signs are stable. Chest exam reveals good air entry bilaterally. Heart exam reveals first and second heart sounds. No gallop. Exam of extremities did not reveal any edema. LABS: Labs show a potassium of 4.3, hemoglobin is 11.7, creatinine is 0.9. ASSESSMENT: Status post surgical resection of a mass on the aortic valve. The patient is doing well. We will continue with the current medications. MMODL / IJN: [id number] /
[2019-03-13 12:27] LABS: Glucose,Whole Blood 133 mg/dL (75-99)
--- NOTE | 2019-03-13 13:04 | P.PN ---
Subjective Progress Note Date: 03/13/19 Principal diagnosis: A 53-year-old male patient with a mobile aortic valve mass was taken to the operating room today and the patient underwent removal of aortic valve mass attached to the noncoronary Cusp. The patient has history of hypertension, hyperlipidemia, coronary artery disease and is post coronary stenting. He is a smoker. He was having increased fatigue over the past 6 months. He denied having any chest pain. No chest pressure pain no palpitation. No dizziness and no vertigo. Stress test showed reversible defect along the inferior wall. Previous echocardiogram also showed a mobile echodensity along the aortic valve. 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 Normal LV function was noted. There was a patent foramen ovale with a [id number] shunt. The rest of the valvular structures were all within normal limits. A preoperative coronary angiogram showed patent stent to a med LAD. Following the surgery the patient was brought into the intensive care unit for further evaluation and weaning off the mechanical ventilator. At the time of his arrival, the patient was on assist control mode of ventilation. The patient was gradually weaned off the sedation. The patient was awake and following commands. He is weaning parameters were excellent with a temperature breathing index of 53. Subsequently was given a spontaneous breathing trial with a pressure support of 5 and a PEEP of 5 and the patient was found to have a pH of 7.35 with a pCO2 of 47 and pO2 of 71. At that point, the patient was extubated. The chest x-ray showed postoperative changes with adequate positioning of the mediastinal drains and tubes. As such, the patient was extubated. The patient has a cardiac output of 6.1. He is currently on Levophed Drip for blood pressure control. He a pressures are 32/20. He is single mediastinal chest tube and output has been minimal since his arrival from the operating room. He is awake and alert and is following commands and answering questions appropriately. On 03/12/2019, the patient is postop day #1 and the patient has no specific complaints. The patient is doing well. The patient is still Pyote-Bhavya catheter in place. The cardiac output is around 5.3. The patient is hemodynamically stable. Chest x-ray from today shows no acute abnormalities. Output from the chest tube is minimal and the total amount of output since he came from the operating room is around 300 mL of serosanguineous drainage. No evidence of any air leak. He is pulling approximately 600 mL on his incentive spirometer. Is currently on 6 L of oxygen by nasal cannula with a pulse of 98%. His cardiac rhythm is sinus. Sternum stable clean and intact. His communicating. No focal neurological deficit. No headache. No nausea or vomiting. No significant shortness of breath. He is afebrile. He was also taken off that Cleviprex drip as the patient's blood pressures currently well-controlled. The patient is seen today 03/13/2018 in follow-up on the selective care unit. This is postoperative day #2. He is sitting up at the bedside. Awake and alert in no acute distress. Maintaining good O2 saturations in the upper 90s on 2 L/m per nasal cannula. He is working with the incentive spirometer. Chest x-ray reveals bilateral infiltrates and pleural effusions with some mild central venous congestion. Chest tube remains in place. White count 13.5. Hemoglobin 11.7. Creatinine 0.99. He remains on bronchodilators. Heparin for DVT prophylaxis. Objective - Vital Signs Vital signs: Vital Signs Temp 98 F 03/13/19 08:00 Pulse 100 03/13/19 11:11 Resp 18 03/13/19 08:00 BP 102/65 03/13/19 08:00 Pulse Ox 98 03/13/19 08:03 Intake & Output 03/12/19 03/13/19 03/13/19 18:59 06:59 18:59 Intake Total 553.389 Output Total 550 250 Balance 3.389 -250 Weight 80.6 kg Intake: IV 541 CO/CI 210 Lactated Ringers 1,000 ml 250 @ 50 mls/hr IV .Q20H MANOLO Rx#:[id number] Pressure Bag 81 Intake, IV Titration 12.389 Amount Insulin Regular 100 unit 12.389 In Sodium Chloride 0.9% 100 ml @ Per Protocol IV .Q0M MANOLO Rx#:[id number] Output: Chest Tube Drainage 30 Chest Tube Mediastinal 30 Urine 520 250 Other: Voiding Method Indwelling Catheter Urinal # Voids 0 1 ABP, PAP, CO, CI - Last Documented Arterial Blood Pressure 98/65 Pulmonary Artery Pressure 36/21 Cardiac Output 5.3 Cardiac Index 3 - Exam GENERAL EXAM: Alert, pleasant 53-year-old gentleman, on 2 L nasal cannula, comfortable in no apparent distress. HEAD: Normocephalic. EYES: Normal reaction of pupils, equal size. NOSE: Clear with pink turbinates. THROAT: No erythema or exudates. NECK: No masses, no JVD. CHEST: Dressing dry and intact. Heart hugger in place. Chest tube in place. LUNGS: Equal air entry with faint crackles in the bilateral posterior bases. CVS: S1 and S2 normal with no audible murmur, regular rhythm. ABDOMEN: No hepatosplenomegaly, normal bowel sounds, no guarding or rigidity. SPINE: No scoliosis or deformity SKIN: No rashes CENTRAL NERVOUS SYSTEM: No focal deficits, tone is normal in all 4 extremities. EXTREMITIES: There is no peripheral edema. No clubbing, no cyanosis. Peripheral pulses are intact. - Labs CBC & Chem 7: 03/13/19 06:12 03/13/19 06:12 Labs: Abnormal Lab Results - Last 24 Hours (Table) 03/12/19 03/12/19 03/12/19 Range/Units 14:38 18:16 20:16 WBC (3.8-10.6) k/uL RBC (4.30-5.90) m/uL Hgb (13.0-17.5) gm/dL Hct (39.0-53.0) % Neutrophils # (1.3-7.7) k/uL Lymphocytes # (1.0-4.8) k/uL BUN (9-20) mg/dL Glucose (74-99) mg/dL POC Glucose (mg/dL) 147 H 159 H 151 H (75-99) mg/dL Total Protein (6.3-8.2) g/dL Albumin (3.5-5.0) g/dL 03/13/19 03/13/19 03/13/19 Range/Units 06:12 06:12 06:25 WBC 13.5 H (3.8-10.6) k/uL RBC 3.72 L (4.30-5.90) m/uL Hgb 11.7 L (13.0-17.5) gm/dL Hct 34.8 L (39.0-53.0) % Neutrophils # 11.7 H (1.3-7.7) k/uL Lymphocytes # 0.9 L (1.0-4.8) k/uL BUN 8 L (9-20) mg/dL Glucose 112 H (74-99) mg/dL POC Glucose (mg/dL) 172 H (75-99) mg/dL Total Protein 5.3 L (6.3-8.2) g/dL Albumin 3.0 L (3.5-5.0) g/dL 03/13/19 Range/Units 12:15 WBC (3.8-10.6) k/uL RBC (4.30-5.90) m/uL Hgb (13.0-17.5) gm/dL Hct (39.0-53.0) % Neutrophils # (1.3-7.7) k/uL Lymphocytes # (1.0-4.8) k/uL BUN (9-20) mg/dL Glucose (74-99) mg/dL POC Glucose (mg/dL) 133 H (75-99) mg/dL Total Protein (6.3-8.2) g/dL Albumin (3.5-5.0) g/dL Assessment and Plan Assessment: 1 aortic valve mass status post thoracotomy and resection of an aortic valve mass involving the noncoronary cusp. The patient is postop day #2. Noted the patient also had Ligation of the left atrial appendage. The patient is hemodynamically stable. He has no significant output from the mediastinal chest tube and there has been no other significant events overnight. 2 post thoracotomy. The patient was extubated within a few hours of arrival to the intensive care unit. Currently on 2 L of oxygen by nasal cannula. 3 history of coronary artery disease with stenting of the LAD 4 hypertension, placed on a chiropractor postop and currently is off the Keflex. 5 hyperlipidemia 6 osteoarthritis Plan The patient was seen and evaluated by Dr. Armijo. Chest x-ray and labs reviewed. He is doing well from pulmonary standpoint. Needs increased encouragement regarding the use of the incentive spirometer and cough and deep breathing exercises. Chest tube remains. On bronchodilators. Increase his activity as tolerated. We'll continue to follow. I, the cosigning physician, performed a history & physical examination of the patient. Lungs sounds faint crackles in the posterior bases. Maintaining good O2 saturations in the 90s on 2 L/m per nasal cannula. I discussed the assessmen t and plan of care with my nurse practitioner, Tameka Pepe. I attest to the above note as dictated by her.
--- NOTE | 2019-03-13 14:05 | P.CONS ---
History of Present Illness - Reason for Consult Consult date: 03/13/19 Medical management Requesting physician: Devin Higginbotham - Chief Complaint Elective open heart surgery - History of Present Illness 53-year-old male well-known to my practice who presented to the hospital for elective surgical management of a mobile aortic valve mass, patient went to the operating room on 03/11/2019 underwent removal of aortic valve mass attached to the noncoronary cusp. Patient is currently out of ICU and off ventilator and actually doing quite well. This patient has a known history of hypertension hyperlipidemia coronary artery disease and post coronary stenting. He is a known smoker. Echocardiogram prior to surgery suggested echodensity along the aortic valve. 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 Normal LV function patent foraminal valve with a [id number] shunt. Rest of the valvular structure was within normal limits. Preoperative coronary angiogram showed patent stent to the LAD. Review of Systems Constitutional: Reports as per HPI Ears, nose, mouth and throat: Reports as per HPI Cardiovascular: Reports decreased exercise tolerance (Mild decreased exercise tolerance post operatively) Respiratory: Reports as per HPI Gastrointestinal: Reports as per HPI Genitourinary: Reports as per HPI Musculoskeletal: Reports as per HPI Integumentary: Reports as per HPI Neurological: Reports as per HPI Psychiatric: Reports as per HPI Past Medical History Past Medical History: Hyperlipidemia, Hypertension, Myocardial Infarction ([place]) Additional Past Medical History / Comment(s): chest discomfort, sob with talking fast Last Myocardial Infarction Date:: 08-28-13 History of Any Multi-Drug Resistant Organisms: None Reported Past Surgical History: Heart Catheterization With Stent, Hernia Repair, Orthopedic Surgery Additional Past Surgical History / Comment(s): heart stent x1,bone spurs removed, recent heart cath., ALTHEA Past Anesthesia/Blood Transfusion Reactions: No Reported Reaction Date of Last Stent Placement:: 08-28-13 Smoking Status: Current every day smoker - Past Family History Mother Family Medical History: Coronary Artery Disease (CAD) Additional Family Medical History / Comment(s): CABG Medications and Allergies Home Medications Medication Instructions Recorded Confirmed Type Aspirin 81 mg PO DAILY 01/21/19 03/11/19 History Atorvastatin [Lipitor] 40 mg PO HS 01/21/19 03/11/19 History Metoprolol Tartrate [Lopressor] 12.5 mg PO BID 01/21/19 03/11/19 History Allergies Allergy/AdvReac Type Severity Reaction Status Date / Time No Known Allergies Allergy Verified 03/11/19 08:28 Physical Exam Osteopathic Statement: *. No significant issues noted on an osteopathic structural exam other than those noted in the History and Physical/Consult. Vitals: Vital Signs Temp Pulse Pulse Pulse Pulse Resp BP 03/13/19 11:11 100 03/13/19 11:06 99 03/13/19 08:10 100 03/13/19 08:03 101 H 03/13/19 08:00 98 F 103 H 18 03/13/19 03:30 98.2 F 99 16 03/12/19 23:30 98.4 F 104 H 18 03/12/19 21:56 98.1 F 111 H 18 03/12/19 20:24 120 H 03/12/19 20:08 113 H 03/12/19 20:07 98.2 F 117 H 23 122/78 03/12/19 20:00 18 03/12/19 15:40 03/12/19 15:34 95 03/12/19 15:25 96 BP BP Pulse Ox 03/13/19 11:11 03/13/19 11:06 03/13/19 08:10 03/13/19 08:03 98 03/13/19 08:00 102/65 91 L 03/13/19 03:30 111/74 95 03/12/19 23:30 113/74 97 03/12/19 21:56 112/71 94 L 03/12/19 20:24 03/12/19 20:08 03/12/19 20:07 03/12/19 20:00 96 03/12/19 15:40 98 03/12/19 15:34 03/12/19 15:25 Intake and Output 03/12/19 03/13/19 03/13/19 22:59 06:59 14:59 Intake Total 59 Output Total 595 Balance -536 Intake: IV 59 Lactated Ringers 1,000 ml 50 @ 50 mls/hr IV .Q20H MANOLO Rx#:[id number] Pressure Bag 9 Output: Urine 595 Other: Voiding Method Indwelling Catheter Urinal # Voids 0 1 Weight 80.6 kg General: [Patient awake, alert and oriented times 3. Patient in no acute distress.] HEENT: [PERRL. EOMI. No pharyngeal erythema or exudate.] Neck: [No adenopathy.] Cardiac: [Heart regular in rate and rhythm. No S3. No S4. No clicks, rubs. Mediastinal chest tube still intact Lungs: [Clear to auscultation bilaterally.] Abdomen: [No mass. No organomegaly. Bowel sounds presnt and normoactive in all 4 quadrants.] Extremes: [No edema no cyanosis no claudication normal pulses] : [] Musculoskeletal: [No joint erythema, edema or tenderness.] Skin: [No rash.] Neurologic: [No lateralizing deficits. CN II - XII grossly intact.] Lymphatic: [No adenopathy.] Results CBC & Chem 7: 03/13/19 06:12 03/13/19 06:12 Labs: Abnormal Lab Results - Last 24 Hours (Table) 03/12/19 03/12/19 03/12/19 Range/Units 14:38 18:16 20:16 WBC (3.8-10.6) k/uL RBC (4.30-5.90) m/uL Hgb (13.0-17.5) gm/dL Hct (39.0-53.0) % Neutrophils # (1.3-7.7) k/uL Lymphocytes # (1.0-4.8) k/uL BUN (9-20) mg/dL Glucose (74-99) mg/dL POC Glucose (mg/dL) 147 H 159 H 151 H (75-99) mg/dL Total Protein (6.3-8.2) g/dL Albumin (3.5-5.0) g/dL 03/13/19 03/13/19 03/13/19 Range/Units 06:12 06:12 06:25 WBC 13.5 H (3.8-10.6) k/uL RBC 3.72 L (4.30-5.90) m/uL Hgb 11.7 L (13.0-17.5) gm/dL Hct 34.8 L (39.0-53.0) % Neutrophils # 11.7 H (1.3-7.7) k/uL Lymphocytes # 0.9 L (1.0-4.8) k/uL BUN 8 L (9-20) mg/dL Glucose 112 H (74-99) mg/dL POC Glucose (mg/dL) 172 H (75-99) mg/dL Total Protein 5.3 L (6.3-8.2) g/dL Albumin 3.0 L (3.5-5.0) g/dL 03/13/19 Range/Units 12:15 WBC (3.8-10.6) k/uL RBC (4.30-5.90) m/uL Hgb (13.0-17.5) gm/dL Hct (39.0-53.0) % Neutrophils # (1.3-7.7) k/uL Lymphocytes # (1.0-4.8) k/uL BUN (9-20) mg/dL Glucose (74-99) mg/dL POC Glucose (mg/dL) 133 H (75-99) mg/dL Total Protein (6.3-8.2) g/dL Albumin (3.5-5.0) g/dL Chest x-ray: report reviewed Assessment and Plan (1) Coronary artery disease Current Visit: Yes Status: Acute Code(s): I25.10 - ATHSCL HEART DISEASE OF [place] CORONARY ARTERY W/O ANG PCTRS SNOMED Code(s): 82404424 (2) History of hypertension Current Visit: Yes Status: Acute Code(s): Z86.79 - PERSONAL HISTORY OF OTHER DISEASES OF THE CIRCULATORY SYSTEM SNOMED Code(s): 993864794 Plan: Status post surgical removal of aortic valve mass involving the noncoronary cusp Postthoracotomy, mediastinal chest tubes still in place Hypertension well controlled Previous coronary artery stenting still patent Patient doing quite well Time with Patient: Greater than 30
[2019-03-13 17:15] LABS: Glucose,Whole Blood 121 mg/dL (75-99)
[2019-03-13] MEDS: SENNOSIDES-DOCUSATE SODIUM 1 EACH TAB PO SCH (20:10)
[2019-03-13 20:44] LABS: Glucose,Whole Blood 132 mg/dL (75-99)
[2019-03-14 02:05] LABS: Glucose,Whole Blood 195 mg/dL (75-99)
[2019-03-14] MEDS: INSULIN ASPART (NovoLOG) 100 UNIT/ML VIAL SQ SCH ×3 (02:07→12:37)
[2019-03-14 06:17] LABS: Glucose,Whole Blood 119 mg/dL (75-99)
[2019-03-14] MEDS: KETOROLAC 30 MG/ML 1 ML VIAL IVP SCH ×2 (06:18→12:37)
[2019-03-14] MEDS: PANTOPRAZOLE 40 MG TABLET PO SCH (06:18)
--- NOTE | 2019-03-14 06:45 | XR ---
EXAMINATION TYPE: XR chest 2V DATE OF EXAM: 03/14/2019 HISTORY: post cardiac surgery. REFERENCE: Previous study dated 03/13/2019. FINDINGS: There has been a midline sternotomy. There is bilateral basilar airspace disease either rep resenting atelectasis or pneumonia. There are small, bilateral effusions. Heart size is upper limits of normal. There is been no significant interval change in the appearance of chest. IMPRESSION: NO SIGNIFICANT INTERVAL CHANGE IN CHEST.
[2019-03-14 06:50] LABS: HCT 31.6 % (39.0-53.0); HGB 10.7 gm/dL (13.0-17.5); MCH 31.6 pg (25.0-35.0); MCHC 33.7 g/dL (31.0-37.0); MCV 93.9 fL (80.0-100.0); Mean Platelet Volume 6.5; Platelet Count 192 k/uL (150-450); RBC 3.37 m/uL (4.30-5.90); RDW 12.5 % (11.5-15.5); WBC 9.8 k/uL (3.8-10.6)
[2019-03-14 07:03] LABS: African American GFR (CKD) >90 (>60 ml/min/1.73 sqM); Anion Gap 6 mmol/L; Blood Urea Nitrogen 13 mg/dL (9-20); Calcium 8.6 mg/dL (8.4-10.2); Carbon Dioxide 30 mmol/L (22-30); Chloride 106 mmol/L (98-107); Glucose 107 mg/dL (74-99); Potassium 3.8 mmol/L (3.5-5.1); Sodium 142 mmol/L (137-145)
[2019-03-14] MEDS: IPRATROPIUM-ALBUTEROL 3 ML NEB INHALATION SCH ×2 (08:25→11:32)
[2019-03-14] MEDS: ATORVASTATIN 40 MG TAB PO SCH (09:22)
[2019-03-14] MEDS: HEPARIN SODIUM,PORCINE 5,000 UNIT/ML 1 ML VIAL SQ SCH (09:22)
[2019-03-14] MEDS: ASPIRIN 325 MG TAB PO SCH (09:22)
[2019-03-14] MEDS: METOPROLOL TARTRATE 50 MG TAB PO SCH (09:22)
--- NOTE | 2019-03-14 09:37 | P.PN ---
Subjective Progress Note Date: 03/14/19 Principal diagnosis: Aortic valve mass, fibroelastoma of the noncoronary cusp. Previous medical history of coronary artery disease with myocardial infarction with VF arrest (2013), stent to LAD, hypertension, hyperlipidemia, current tobacco dependence with FEV1 85%, depression, and arthritis. POD 3 removal of aortic valve mass attached to the noncoronary cusp, clip ligation of the left atrial appendage with a #35 mm AtriClip and intraoperative ALTHEA. The patient is currently laying in bed in no acute distress on the cardiac step- down unit. States pain is controlled on current medication regimen. Denies shortness of breath. Mediastinal chest tube discontinued yesterday. Patient has been ambulatory in the hallway without difficulty. Unable to be weaned from oxygen completely, otherwise no new concerns. Objective - Vital Signs Vital signs: Vital Signs Temp 98.2 F 03/14/19 03:10 Pulse 109 H 03/14/19 08:35 Resp 16 03/14/19 06:18 BP 104/68 03/14/19 03:10 Pulse Ox 94 L 03/14/19 06:18 Intake & Output 03/13/19 03/14/19 03/14/19 18:59 06:59 18:59 Intake Total 222 Output Total 400 500 Balance -400 -278 Weight 74.8 kg Intake: Oral 222 Output: Urine 400 500 Other: Voiding Method Toilet ABP, PAP, CO, CI - Last Documented Arterial Blood Pressure 98/65 Pulmonary Artery Pressure 36/21 Cardiac Output 5.3 Cardiac Index 3 - Constitutional General appearance: Present: cooperative, no acute distress - Respiratory Details: Lung sounds diminished bilaterally. Respirations even, non-labored. Currently on room air with oxygen saturation 88-89%. Only able to achieve 750 mL on his incentive spirometry. Strong cough. - Cardiovascular Details: S1/S2 present. Regular but tachycardic rate/rhythm, normal sinus rhythm to sinus tach on telemetry. Sternum stable. Palpable peripheral pulses bilaterally. No edema present. No calf pain or tenderness noted. Heart hugger in place with patient demonstrating appropriate use. Anti-embolism stockings, SCDs present. - Gastrointestinal Gastrointestinal Comment(s): Abdomen soft, non-tender, non-distended. Active bowel sounds present x 4 quadrants. Tolerating diet. Positive flatus, negative bowel movement. - Genitourinary Genitourinary Comment(s): Continues to void clear, yellow urine. - Integumentary Integumentary Comment(s): Skin is warm and dry with evidence of good perfusion. Anterior chest incision well approximated and covered with intact dressing. - Neurologic Neurologic: Present: CNII-XII intact - Musculoskeletal Musculoskeletal: Present: gait normal, strength equal bilaterally - Psychiatric Psychiatric: Present: A&O x's 3, appropriate affect, intact judgment & insight - Allied health notes Allied health notes reviewed: nursing - Labs CBC & Chem 7: 03/14/19 06:10 03/14/19 06:10 Labs: Abnormal Lab Results - Last 24 Hours (Table) 03/13/19 03/13/19 03/13/19 Range/Units 12:15 17:12 20:43 RBC (4.30-5.90) m/uL Hgb (13.0-17.5) gm/dL Hct (39.0-53.0) % Glucose (74-99) mg/dL POC Glucose (mg/dL) 133 H 121 H 132 H (75-99) mg/dL 03/14/19 03/14/19 03/14/19 Range/Units 02:03 06:10 06:10 RBC 3.37 L (4.30-5.90) m/uL Hgb 10.7 L (13.0-17.5) gm/dL Hct 31.6 L (39.0-53.0) % Glucose 107 H (74-99) mg/dL POC Glucose (mg/dL) 195 H (75-99) mg/dL 03/14/19 Range/Units 06:16 RBC (4.30-5.90) m/uL Hgb (13.0-17.5) gm/dL Hct (39.0-53.0) % Glucose (74-99) mg/dL POC Glucose (mg/dL) 119 H (75-99) mg/dL - Imaging and Cardiology Chest x-ray: report reviewed, image reviewed Assessment and Plan Assessment: 1. Aortic valve mass, fibroelastoma of the noncoronary cusp, status post removal 2. History of coronary artery disease with myocardial infarction with VF arrest in 2013, stent to the LAD 3. Hypertension 4. Hyperlipidemia 5. Current tobacco dependence with FEV1 85% of predicted 6. Depression, currently on no medication 7. Arthritis Plan: 1. Continue aspirin, statin, beta rebecca. Will increase beta rebecca therapy a s tolerated, increased to 50 mg twice a day yesterday 2. Check oxygen saturation with ambulation. Encourage incentive spirometry 10 x hour while awake. 3. Increase activity, encourage ambulation. PT/OT/cardiac rehab following. 4. Bronchodilators per pulmonology. Encourage smoking cessation 5. Pain control with current medication regimen 6. Insulin management per primary care service 7. GI/DVT prophylaxis 8. Will monitor daily labs, x-rays. Electrolyte replacement per protocol. 9. Discharge planning in progress. Anticipate discharge to home with home care later today versus tomorrow depending on ability to get patient off of oxygen completely. 10. More recommendations to follow Time with Patient: Greater than 30
[2019-03-14 10:56] VITALS: BP 94/55; PULSE 101; RESP 18; TEMP 97.2
--- NOTE | 2019-03-14 11:42 | P.DS ---
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 Aortic valve mass, fibroblastoma of the non-coronary cusp 2. History of coronary artery disease with myocardial infarction with V. fib arrest (2013), stent to the LAD 3. Hypertension 4. Hyperlipidemia 5. Current tobacco dependence with FEV1 85% 6. Depression 7. Arthritis PRINCIPAL PROCEDURE: 1. Removal of aortic valve mass attached to the non-coronary cusp 2. Clip ligation of the left atrial appendage with a 35 mm AtriClip 3. Intraoperative transesophageal echocardiogram HISTORY OF PRESENT ILLNESS: This is a 53-year-old gentleman who follows in an outpatient basis with Dr. Joseph. He had been experiencing increased fatigue over the previous 6 months but denied any chest pain, pressure, palpitations, or any other aggravating or alleviating symptoms. He did have a stress test which demonstrated a reversible defect along the inferior wall. Previous echocardiogram also demonstrated a mobile echodensity along the aortic valve. The patient had a heart catheterization which demonstrated a patent stent to the LAD, and no other nonobstructive coronary artery disease. Transesophageal echocardiogram was completed confirming presence of a mass on the non-coronary cusp of the aortic valve consistent with fibroblastoma. The patient was referred to Dr. Higginbotham from cardiothoracic surgery. He was recommended to undergo surgical removal of the aortic valve mass. The usual perioperative course was discussed in detail with the patient and his family, all risks and benefits were explained, all questions were answered, and consent was obtained to proceed with surgery. The patient was scheduled for surgery at the earliest possible surgical date. HOSPITAL COURSE: The patient was brought to the hospital on 03/11/2019, taken to the preoperative area, prepared in the usual fashion, and subsequently taken to the operating room where Dr. Higginbotham performed removal of the aortic valve mass attached to the non-coronary cusp, clip ligation of the left atrial appendage with a 35 mm AtriClip, and intraoperative transesophageal echocardiogram. Upon completion of surgery the patient was transferred to the cardiovascular intensive care unit where he was recovered, monitored hemodynamically, and where he progressed to cardiac rehabilitation phase 1. He was extubated, all lines, tubes, and drips were discontinued when appropriate, and he was transferred to [facility] cardiac stepdown unit for further monitoring and rehabilitation. His oxygen was titrated down, he continued to work with physical and occupational therapy, he was tolerating oral diet, his pain was controlled, and he was ready to be discharged to home with [facility] care on postoperative day #3. He received written and verbal instruction regarding his medications, activity restrictions, signs and symptoms requiring physician notification, and follow-up appointments. COMPLICATIONS: The patient experienced no postoperative complications. Patient Condition at Discharge: Stable Plan - Discharge Summary Discharge Rx Participant: Yes New Discharge Prescriptions: New Aspirin 325 mg PO DAILY #30 tab Metoprolol Tartrate [Lopressor] 50 mg PO BID #60 tab Pantoprazole [Protonix] 40 mg PO AC-BRKFST #30 tablet.[address] Gomez-Docusate Sodium [Senokot-S] 2 each PO HS PRN #14 tab PRN Reason: Constipation Acetaminophen Tab [Tylenol] 1,000 mg PO Q6HR PRN #120 tab PRN Reason: Fever And/ Or Pain Continue Atorvastatin [Lipitor] 40 mg PO HS #30 tab Discontinued Metoprolol Tartrate [Lopressor] 12.5 mg PO BID Aspirin 81 mg PO DAILY Discharge Medication List Acetaminophen Tab [Tylenol] 1,000 mg PO Q6HR PRN #120 tab 03/14/19 [Rx] Aspirin 325 mg PO DAILY #30 tab 03/14/19 [Rx] Atorvastatin [Lipitor] 40 mg PO HS #30 tab 03/14/19 [Rx] Metoprolol Tartrate [Lopressor] 50 mg PO BID #60 tab 03/14/19 [Rx] Pantoprazole [Protonix] 40 mg PO AC-BRKFST #30 tablet. 03/14/19 [Rx] Sennosides-Docusate Sodium [Senokot-S] 2 each PO HS PRN #14 tab 03/14/19 [Rx] Follow up Appointment(s)/Referral(s): Raquel Aviles NPC [Nurse Practitioner] - 03/19/19 11:00 am Duane Jenkins MD [STAFF PHYSICIAN] - 03/23/19 3:30 pm Jonathan Joseph Jr, DO [Primary Care Provider] - 03/27/19 11:00 am Tameka Pepe NPC [Nurse Practitioner] - 03/24/19 3:00 pm [facility], [NON-STAFF] - As Needed Devin Higginbotham MD [STAFF PHYSICIAN] - 4 Weeks (Office will call with appointment time.) Ambulatory/Diagnostic Orders: Complete Blood Count w/diff [LAB.AMB] Time Frame: 3 Days, Location: None Selected Comprehensive Metabolic Panel [LAB.AMB] Time Frame: 3 Days, Location: None Selected Activity/Diet/Wound Care/Special Instructions: DISCHARGE INSTRUCTIONS: 1. No driving for 4 weeks, or until physician gives their ok. 2. The patient should sleep in their own bed, no medical bed needed. 3. Stairs are not an issue. If the bedroom is upstairs, it is advised that the patient go up at night and down in the morning for the first week. Go slowly, using handrail and take 1 step at a time. 4. ERIC hose are to be worn for 30 days or until physician discontinues. 5. Heart hugger is to be worn 100% of the time until physician discontinues.(except when showering) 6. No lifting, pushing, or pulling more than 10 pounds for 12 weeks. The physician will advise of any restriction changes. 7. The patient is expected to continue the prescribed walking program. 8. Continue pain control per as needed orders. 9. Continue with incentive spirometry and splinting/heart hugger until otherwise directed by the physician. 10. Must shower daily using liquid antibacterial soap and a separate white washcloth for each individual incision. 11. Routine sternal incision care. No powders, lotions, ointments on incisions. 12. Please call surgeon/CARDIOTHORACIC ICU RN for temp greater than 101 F or purulent drainage from incisions. 13. All prescriptions given by surgeon for 30 days. Refills need to be filled through director of primary care/primary care physician. 14. A Red armband has been placed on the patient. It should be worn for 30 days post surgery and will be removed by the cardiac surgeons. If an ER visit is necessary, please make sure the number on the Red armband is called. HOME HEALTH SERVICES TO PROVIDE: RN SKILLED HOME CARE SERVICES FOR POST-OP SURGICAL PATIENTS WITH THE FOLLOWING: Coronary Artery Bypass Surgery (CABG), Mitral Valve Replacement/Repair ( MVR), Aortic Valve Replacement/Repair (AVR) RN TO CONTINUE EDUCATION FROM ``ROAD TO A HEALTH HEART PATIENT EDUCATION MANUAL (GIVEN TO PATIENT IN THE HOSPITAL) MEDICATION RECONCILIATION WITH EDUCATION NEEDED ON FIRST HOME VISIT EMPHASIZE IMPORTANCE OF WEARING BREAST SUPPORT/HEART HUGGER ENCOURAGE USE OF INCENTIVE SPIROMETER 10 X EVERY HOUR WHILE AWAKE ENCOURAGE UTILIZATION OF LOWER EXTREMITY COMPRESSION STOCKINGS/ERIC HOSE and ELEVATE LEGS ABOVE LEVEL OF HEART WHILE AT REST. ENCOURAGE AMBULATION 3-5x/day INCREASING TOLERATES, WHILE AVOID EXTREMES IN TEMPERATURE FREQUENCY: RN TO OPEN THE PATIENT WITHIN 24 HOURS OF DISCHARGE FROM THE HOSPITAL WITH TELEHEALTH INSTALLED AT [facility] [place], RN TO VISIT 2-3 X A WEEK FOR 4 WEEKS ESTABLISHED BY PATIENT NEEDS. LABORATORY: CBC, CMP TO BE DRAWN ON THE THIRD DAY HOME, (RAN STAT) FAX RESULTS TO [phone]. TELEHEALTH PARAMETERS: WEIGHT: NOTIFY MD OF WEIGHT GAIN OF 2 LBS IN 24 HOURS OR 5 LBS IN ONE WEEK HR: NOTIFY MD OF HR <55 BPM OR HR>100 BPM BP: NOTIFY MD IF BP <90/55 OR BP>140/100 O2 SAT: NOTIFY MD IF PO2<93% ON ROOM AIR SEND TELEHEALTH REPORT TO RESIDENT CARE AIDE AND CARDIOVASCULAR SURGEON THE FIRST WEEK OF CARE AND THEN BI-WEEKLY. PLEASE ADDITIONALLY COMMUNICATE ANY ABNORMALS AND NEW FINDINGS TO THE SURGEONS OFFICE. Discharge Disposition: HOME WITH HOME HEALTH SERVICES
[2019-03-14 12:05] LABS: Glucose,Whole Blood 105 mg/dL (75-99)
--- NOTE | 2019-03-14 12:22 | P.PN ---
Subjective Progress Note Date: 03/14/19 On today's evaluation of 03/14/2019 the patient's pulmonary status is stable. He is on room air oxygen. No cough sputum production chest masses or wheezing. His postop day #3 following resection of an aortic valve mass and the patient's rhythm is stable and sinus for now. No cough. No sputum production. No chest tightness. No wheezing. No other significant events overnight. Cardiology and cardiothoracic surgery on inclined to discharge this patient home. X-ray was reviewed from today shows small bilateral pleural effusion. There is also some mild four-vessel congestion. His sternum stable clean and intact. He was on 2 L of oxygen and he was checked on room air and he continued to have a pulse ox of above 88%. Objective - Vital Signs Vital signs: Vital Signs Temp 97.2 F L 03/14/19 08:00 Pulse 109 H 03/14/19 08:35 Resp 18 03/14/19 08:00 BP 94/55 03/14/19 08:00 Pulse Ox 94 L 03/14/19 06:18 Intake & Output 03/13/19 03/14/19 03/14/19 18:59 06:59 18:59 Intake Total 222 Output Total 400 500 Balance -400 -278 Weight 74.8 kg Intake: Oral 222 Output: Urine 400 500 Other: Voiding Method Toilet ABP, PAP, CO, CI - Last Documented Arterial Blood Pressure 98/65 Pulmonary Artery Pressure 36/21 Cardiac Output 5.3 Cardiac Index 3 - Exam GENERAL EXAM: Alert, pleasant 53-year-old gentleman, on 2 L nasal cannula, comfortable in no apparent distress. HEAD: Normocephalic. EYES: Normal reaction of pupils, equal size. NOSE: Clear with pink turbinates. THROAT: No erythema or exudates. NECK: No masses, no JVD. CHEST: Dressing dry and intact. Heart hugger in place. Chest tube in place. LUNGS: Equal air entry with faint crackles in the bilateral posterior bases. CVS: S1 and S2 normal with no audible murmur, regular rhythm. ABDOMEN: No hepatosplenomegaly, normal bowel sounds, no guarding or rigidity. SPINE: No scoliosis or deformity SKIN: No rashes CENTRAL NERVOUS SYSTEM: No focal deficits, tone is normal in all 4 extremities. EXTREMITIES: There is no peripheral edema. No clubbing, no cyanosis. Peripheral pulses are intact. - Labs CBC & Chem 7: 03/14/19 06:10 03/14/19 06:10 Labs: Abnormal Lab Results - Last 24 Hours (Table) 03/13/19 03/13/19 03/13/19 Range/Units 12:15 17:12 20:43 RBC (4.30-5.90) m/uL Hgb (13.0-17.5) gm/dL Hct (39.0-53.0) % Glucose (74-99) mg/dL POC Glucose (mg/dL) 133 H 121 H 132 H (75-99) mg/dL 03/14/19 03/14/19 03/14/19 Range/Units 02:03 06:10 06:10 RBC 3.37 L (4.30-5.90) m/uL Hgb 10.7 L (13.0-17.5) gm/dL Hct 31.6 L (39.0-53.0) % Glucose 107 H (74-99) mg/dL POC Glucose (mg/dL) 195 H (75-99) mg/dL 03/14/19 03/14/19 Range/Units 06:16 12:04 RBC (4.30-5.90) m/uL Hgb (13.0-17.5) gm/dL Hct (39.0-53.0) % Glucose (74-99) mg/dL POC Glucose (mg/dL) 119 H 105 H (75-99) mg/dL Assessment and Plan Plan: 1 aortic valve mass status post thoracotomy and resection of an aortic valve mass involving the noncoronary cusp. The patient is postop day #3. Noted the patient also had Ligation of the left atrial appendage. The patient is hemodynamically stable. 2 post thoracotomy. 3 history of coronary artery disease with stenting of the LAD 4 hypertension, 5 hyperlipidemia 6 osteoarthritis 7 small bilateral pleural effusions 8 acute hypoxic respiratory failure improved post thoracotomy and cardiac surgery. Plan The patient will be discharged home today. Monitor the pulse ox. The back in the office and there is any worsening shortness of breath. He has small pleural effusion. Discharge medications were reviewed. No other changes from my standpoint. Continues incentive spirometer. My contact information will be given.
--- NOTE | 2019-03-14 12:41 | P.PN ---
Subjective This is a pleasant 53-year-old male postop day #3 following surgical resection of fibroblastoma of aortic valve. He also has a prior history of coronary artery disease status post PCI, hypertension, dyslipidemia, chronic nicotine dependence and follows in the office with Dr. Jenkins. He is seen and examined up walking around the room in no acute distress. He is preparing to take a shower. He denies symptoms of chest discomfort, dizziness, shortness of breath or palpitations. Blood pressure 94/55 heart rate 101 afebrile maintaining oxygen saturation on nasal cannula. Laboratory data reviewed, WBC 9.8, hemoglobin 10.7, platelets 192, sodium 142, potassium 3.8, creatinine 1.06. Currently maintained on aspirin 325 mg daily, atorvastatin 40 mg daily and metoprolol 50 mg twice a day. Surgical incision is clean, dry and intact. GENERAL: Well-appearing, well-nourished and in no acute distress. NECK: Supple without JVD or thyromegaly. LUNGS: Breath sounds clear to auscultation bilaterally. Respiration equal and unlabored. No wheezes, rales or rhonchi. HEART: Regular rate and rhythm without murmurs, rubs or gallops. S1 and S2 heard. Surgical incision is clean dry and intact. EXTREMITIES: Normal range of motion, no edema. No clubbing or cyanosis. Peripheral pulses intact. ASSESSMENT Resection of aortic valve fibroblastoma History of coronary artery disease Hypertension Dyslipidemia Chronic nicotine dependence PLAN Continue current medical regimen. Follow-up with Dr. Jenkins upon discharge. Nurse Practitioner note has been reviewed, I agree with a documented findings and plan of care. Patient was seen and examined. Objective - Vital Signs Vital signs: Vital Signs Temp 97.2 F L 03/14/19 08:00 Pulse 109 H 03/14/19 08:35 Resp 18 03/14/19 08:00 BP 94/55 03/14/19 08:00 Pulse Ox 94 L 03/14/19 06:18 Intake & Output 03/13/19 03/14/19 03/14/19 18:59 06:59 18:59 Intake Total 222 Output Total 400 500 Balance -400 -278 Weight 74.8 kg Intake: Oral 222 Output: Urine 400 500 Other: Voiding Method Toilet ABP, PAP, CO, CI - Last Documented Arterial Blood Pressure 98/65 Pulmonary Artery Pressure 36/21 Cardiac Output 5.3 Cardiac Index 3 - Labs CBC & Chem 7: 03/14/19 06:10 03/14/19 06:10 Labs: Abnormal Lab Results - Last 24 Hours (Table) 03/13/19 03/13/19 03/14/19 Range/Units 17:12 20:43 02:03 RBC (4.30-5.90) m/uL Hgb (13.0-17.5) gm/dL Hct (39.0-53.0) % Glucose (74-99) mg/dL POC Glucose (mg/dL) 121 H 132 H 195 H (75-99) mg/dL 03/14/19 03/14/19 03/14/19 Range/Units 06:10 06:10 06:16 RBC 3.37 L (4.30-5.90) m/uL Hgb 10.7 L (13.0-17.5) gm/dL Hct 31.6 L (39.0-53.0) % Glucose 107 H (74-99) mg/dL POC Glucose (mg/dL) 119 H (75-99) mg/dL 03/14/19 Range/Units 12:04 RBC (4.30-5.90) m/uL Hgb (13.0-17.5) gm/dL Hct (39.0-53.0) % Glucose (74-99) mg/dL POC Glucose (mg/dL) 105 H (75-99) mg/dL
== END 2019-03-14 14:34 | disposition home health service (06) | DRG 229 ==
LOC: 2ORMAIN 08:15 → 2SICU 15:23 → 3SCARD 03-12 20:57
PROVIDERS: ADMIT Thoracic Surgery (Cardiothoracic Vascular Surgery); ATTEND Thoracic Surgery (Cardiothoracic Vascular Surgery)
PROC: 02L70CK Occlusion of Left Atrial Appendage with Extraluminal Device, Open Approach (ICD-10-PCS; principal; 2019-03-11 08:30)
PROC: 02BF0ZZ Excision of Aortic Valve, Open Approach (ICD-10-PCS; principal; 2019-03-11 08:30)
PROC: 5A1221Z Performance of Cardiac Output, Continuous (ICD-10-PCS; principal; 2019-03-11 08:30)
PROC: B246ZZ4 Ultrasonography of Right and Left Heart, Transesophageal (ICD-10-PCS; principal; 2019-03-11 08:30)
DX: D15.1 Benign neoplasm of heart (principal); Q21.1 Atrial septal defect; J90 Pleural effusion, not elsewhere classified; E78.5 Hyperlipidemia, unspecified; F17.210 Nicotine dependence, cigarettes, uncomplicated; F32.9 Major depressive disorder, single episode, unspecified; I10 Essential (primary) hypertension; I25.10 Atherosclerotic heart disease of native coronary artery without angina pectoris; I25.2 Old myocardial infarction; M19.90 Unspecified osteoarthritis, unspecified site; Z79.82 Long term (current) use of aspirin; Z79.899 Other long term (current) drug therapy; Z82.49 Family history of ischemic heart disease and other diseases of the circulatory system; Z86.74 Personal history of sudden cardiac arrest; Z95.5 Presence of coronary angioplasty implant and graft
CPT/HCPCS: 71045; 71046; 80048; 80053; 82330; 82805; 83735; 85025; 85027; 85520; 85610; 85730; 86850; 86891; 86900; 86901; 86920; 88307; 94002; 94640; 94760

== ENCOUNTER → 2020-05-23 | Outpatient (CLI) | payer BC ==
--- NOTE | 2020-05-23 16:13 | XR ---
Lumbosacral spine HISTORY: M 55.42 5views of the lumbosacral spine There is a slight spinal curvature. Lumbar vertebral bodies show preserved height and alignment. Scle rosis is present in the posterior elements. Loss of disc height present L4-5, L3-4, L5-S1, there is m ultilevel spondylosis. No evident spondylolysis. Atherosclerotic vascular calcifications are noted. IMPRESSION: Degenerative disc disease and facet arthropathy.
== END | disposition home or self-care (01) ==
LOC: RADXRMAIN 15:35
PROVIDERS: ATTEND Family Medicine
DX: M51.37 Other intervertebral disc degeneration, lumbosacral region (principal); M47.817 Spondylosis without myelopathy or radiculopathy, lumbosacral region
CPT/HCPCS: 72110

== ENCOUNTER → 2020-09-27 | Outpatient (CLI) | payer BC ==
[2020-09-27 15:59] LABS: Basophils # (A) 0.08 X 10*3/uL (0.00-0.10); Basophils % (A) 1.4 %; Eosinophils # (A) 0.19 X 10*3/uL (0.04-0.35); Eosinophils % (A) 3.2 %; HGB 12.9 g/dL (13.0-17.0); Lymphocytes # (A) 1.31 X 10*3/uL (0.90-5.00); Lymphocytes % (A) 22.2 %; MCH 30.7 pg (27.0-32.0); MCHC 33.1 g/dL (32.0-37.0); MCV 92.9 fL (80.0-97.0); Mean Platelet Volume 9.3 fL (9.5-12.2); Monocytes # (A) 0.55 X 10*3/uL (0.20-1.00); Monocytes % (A) 9.3 %; Neutrophils # (A) 3.76 X 10*3/uL (1.80-7.70); Neutrophils % (A) 63.6 %; Platelet Count 320 X 10*3/uL (140-440); RDW 12.7 % (11.5-14.5); WBC 5.91 X 10*3/uL (4.50-10.00)
[2020-09-27 18:10] LABS: Erythrocyte Sedimentation Rate 13 mm/Hr (0-20)
[2020-09-27 20:22] LABS: African American GFR (CKD) 98.5 (60.0-200.0); Albumin 4.5 g/dL (3.80-4.90); Albumin/Globulin Ratio 2.25 (1.60-3.17); Anion Gap 7.6 mmol/L (4.00-12.00); C Reactive Protein 0.8 mg/dL (0.0-0.8); Calcium 9.3 mg/dL (8.7-10.3); Carbon Dioxide 22.4 mmol/L (21.6-31.8); Non-African American GFR(CKD) 84.9 (60.0-200.0); Total Bilirubin 0.5 mg/dL (0.3-1.2); Total Protein 6.5 g/dL (6.2-8.2)
[2020-09-28 10:50] LABS: HLA B27 NEGATIVE
== END | disposition home or self-care (01) ==
LOC: LABWHC1 10:14
PROVIDERS: ATTEND Family Medicine
DX: M13.0 Polyarthritis, unspecified (principal)
CPT/HCPCS: 36415; 80053; 85025; 85652; 86140; 86812

== ENCOUNTER → 2020-10-01 | Outpatient (CLI) | payer BC ==
--- NOTE | 2020-10-01 15:12 | MR ---
EXAMINATION TYPE: MR lumbar spine wo con DATE OF EXAM: 10/01/2020 COMPARISON: Plain film 05/23/2020 HISTORY: Low back pain TECHNIQUE: Multiplanar, multisequence images of the lumbar spine were acquired. L1-L2: Normal disc appearance without desiccation. No herniation, protrusion or disc bulging. No ca nal stenosis is present. Foramina are patent bilaterally. L2-L3: Posterior disc bulge causes only slight anterior mass effect on the thecal sac. No significant spinal stenosis or foraminal encroachment. L3-L4: Posterior disc bulge causes anterior mass effect on the thecal sac. No significant spinal sten osis or foraminal encroachment. L4-L5: There is facet arthropathy with hypertrophy of ligamentum flavum which with the posterior cent ral disc protrusion results in a trefoil appearance of the thecal sac, severe spinal stenosis, encroa chment on the lateral recesses. Circumferential extension endplate disc complex with the associated l isthesis results in foraminal encroachment greater on the right than on the left. L5-S1: Normal disc appearance without desiccation. No herniation, protrusion or disc bulging. No ca nal stenosis is present. Foramina are patent bilaterally. Lumbar segments are intact. No paraspinal masses are identified. Conus medullaris has a normal appe arance. The anterolisthesis grade 1 at L4-5 is mild, there is loss of disc height signal at intervert ebral levels L4-5, L3-4 and L2-3. There is multilevel spondylosis with endplate discogenic marrow sig nal change. Lumbar vertebral bodies show preserved height. IMPRESSION: Spinal stenosis at L4-5, degenerative disc disease, facet arthropathy, foraminal encroachment.
== END | disposition home or self-care (01) ==
LOC: RADMRIMAIN 13:05
PROVIDERS: ATTEND Family Medicine
DX: M48.061 Spinal stenosis, lumbar region without neurogenic claudication (principal); M51.36 Other intervertebral disc degeneration, lumbar region; M47.816 Spondylosis without myelopathy or radiculopathy, lumbar region; M99.73 Connective tissue and disc stenosis of intervertebral foramina of lumbar region
CPT/HCPCS: 72148

== ENCOUNTER → 2020-11-17 | Outpatient (CLI) | payer BC ==
--- NOTE | 2020-11-17 13:07 | P.PAINCN ---
History of Present Illness - Reason for Consult Consult date: 11/17/20 - History of Present Illness This is 55 years old male with a chronic history of severe low back pain, the pain is constant with occasional radiation to the buttock and posterior aspect of the thigh bilaterally ( more prominent on the left side ), and is constant and increases with any activity, he denies any motor or sensory deficit he denies any fever or numbness., Since done physical therapy in the past without any benefit, he denies any change in the bowel movement or urination Past Medical History Past Medical History: Myocardial Infarction (AL) Additional Past Medical History / Comment(s): chest discomfort,sob with talking fast, Last Myocardial Infarction Date:: 08-28-13 History of Any Multi-Drug Resistant Organisms: None Reported Past Surgical History: Heart Catheterization With Stent, Hernia Repair Additional Past Surgical History / Comment(s): heart stent x1,bone spurs removed, Open heart surgey, tumor on atoric valve moved. Past Anesthesia/Blood Transfusion Reactions: No Reported Reaction Date of Last Stent Placement:: 08-28-13 Past Psychological History: No Psychological Hx Reported Smoking Status: Current every day smoker Past Alcohol Use History: None Reported Additional Past Alcohol Use History / Comment(s): started smoking at age 14,<1ppd Past Drug Use History: None Reported - Past Family History Mother Family Medical History: Coronary Artery Disease (CAD) Additional Family Medical History / Comment(s): CABG Medications and Allergies Home Medications Medication Instructions Recorded Confirmed Type Aspirin [Adult Low Dose Aspirin EC] 81 mg PO DAILY 11/17/20 11/17/20 History Allergies Allergy/AdvReac Type Severity Reaction Status Date / Time No Known Allergies Allergy Verified 03/11/19 08:28 Physical Exam Vitals: Intake and Output 11/16/20 11/17/20 11/17/20 22:59 06:59 14:59 Other: Weight 68.039 kg Physical Examinations : -Constitutiona : Cooperative , not in acute distress . -HEENT : nech : supple , no Lymphadenopathy , normal t hyroid size . : eyes : no ptosis , no icterus, no photophobia . - neurologic : Cranial nerve II to XII intact , no focal neurological deffecit . -psychatric : alert , oriented X 3 , appropriate affect , intact judgment and insight . -Lymphatic : no Lymphadenopathy . - musculoskeltal : Lumber spine moter stegnth lower extremities ,thigh and legs 5/5 Right side , 5/5 Left side deep tendon reflexes : normal Knee Jerk , normal ankle Jerk lumber facet Loading Test =positive Right , positive Left Range of motion of the lumbar spine Flexion 60 degrees, extension 30 degrees strait leg raising test = negative bilaterally Fabere test= negative bilaterally . Results Comments: MRI of the lumbar spine L3 4 bulging disc, L4-L5 spinal stenosis, multilevel lumbar spondylosis with lumbar facet arthropathy Assessment and Plan Plan: Assessment and plan=1-lumbar spondylosis with lumbar facet arthropathy without myelopathy. 2-Lumber spinal stenosis. 3-lumbar degenerative disc disease. Patient could benefit from bilateral medial branch blocks lumbar area, L3, L4, L5 bilaterally and possible RFA Time with Patient: Greater than 30 PQRS Measure Charge Sheet Measure #130: Documentation of Current Meds in Medical Chart: Patient's medications documented in chart Measure #226: Tobacco Use: Screen & Cessation Intervention: Pt not a tobacco user Measure #111: Pneumonia Vaccination: Pneumococcal vaccine NOT administered or previously given Measure #47: Advance Care Plan: Advance care planning discussed & documented, pt chose/unable to give Measure #412: Opioid Treatment Agreement: No documentation of signed opioid treatment agreement Measure #408: Opioid Therapy Follow-up Evaluation: Patient had NO f/u eval minimum every 3 months during opioid therapy Measure #317: Preventitive Care & Scrn High Bld Press & F/U: Normal blood pressure, f/u not required Measure #128: Body Mass Index (BMI) Screening & Follow-up: BMI documented ABOVE normal parameters - f/u documented Measure #131: Pain Assessment & Follow-up: Pain positive & plan documented, Follow-up scheduled Measure #431: Unhealthy Alcohol Use Preventative Care & Scrn: Patient not identified as an unhealthy alcohol user PQRS Narrative: Smoking Status Current every day smoker Home Medications: Ambulatory Orders Aspirin [Adult Low Dose Aspirin EC] 81 mg PO DAILY 11/17/20
[2020-11-17 13:23] VITALS: BP 119/83; PULSE 79; RESP 18; TEMP 98
== END | disposition home or self-care (01) ==
LOC: PNWHC3 12:01
PROVIDERS: ATTEND Specialist
DX: M48.061 Spinal stenosis, lumbar region without neurogenic claudication (principal); M51.36 Other intervertebral disc degeneration, lumbar region; M47.896 Other spondylosis, lumbar region; M46.96 Unspecified inflammatory spondylopathy, lumbar region
CPT/HCPCS: 99211

== ENCOUNTER 2020-11-21 08:30 | Day surgery (SDC) | payer BC ==
[2020-11-17 15:11] VITALS: BMI 26.2
--- NOTE | 2020-11-21 07:41 | P.GSHP ---
History of Present Illness H&P Date: 11/21/20 CHIEF COMPLAINT: Colon screen HISTORY OF PRESENT ILLNESS: The patient is a 55-year-old male who presents for colon screen. Lower endoscopy was offered for further evaluation and management. PAST MEDICAL HISTORY: Please see list. PAST SURGICAL HISTORY: Please see list. MEDICATIONS: Please see list. ALLERGIES: Please see list. SOCIAL HISTORY: No illicit drug use FAMILY HISTORY: No reports of Crohn disease or ulcerative colitis. REVIEW OF ORGAN SYSTEMS: CONSTITUTIONAL: No reports of fevers or chills. PHYSICAL EXAM: VITAL SIGNS: Stable GENERAL: Well-developed pleasant in no acute distress. HEENT: No scleral icterus. Extraocular movements grossly intact. Moist buccal mucosa. NECK: Supple without lymphadenopathy. CHEST: Unlabored respirations. Equal bilateral excursions. CARDIOVASCULAR: Regular rate and rhythm. Distal 2+ pulses. ABDOMEN: Soft, nontender, nondistended. MUSCULOSKELETAL: No clubbing, cyanosis, or edema. ASSESSMENT: 1. Colon screen. PLAN: 1. Recommend proceeding with a lower endoscopy Past Medical History Past Medical History: Coronary Artery Disease (CAD), Hearing Disorder / Deafness, Hyperlipidemia, Myocardial Infarction ([place]), Musculoskeletal Disorder, Prostate Disorder Additional Past Medical History / Comment(s): Bilat tinnitus. Told PSA low. c/o arthritis L1-3, stenosis L4, L5; NT LLE. Last Myocardial Infarction Date:: 08-28-13 History of Any Multi-Drug Resistant Organisms: None Reported Past Surgical History: Heart Catheterization With Stent, Hernia Repair Additional Past Surgical History / Comment(s): Hernia as infant; heart stent x1; bone spurs Rt shoulder removed Past Anesthesia/Blood Transfusion Reactions: No Reported Reaction Date of Last Stent Placement:: 08-28-13 Smoking Status: Current every day smoker - Past Family History Mother Family Medical History: Coronary Artery Disease (CAD) Additional Family Medical History / Comment(s): CABG Father Family Medical History: Cancer Additional Family Medical History / Comment(s): mesothelioma Sister(s) Family Medical History: Cancer Additional Family Medical History / Comment(s): cancer cyst on chest Medications and Allergies Home Medications Medication Instructions Recorded Confirmed Type Aspirin [Adult Low Dose Aspirin EC] 81 mg PO DAILY 11/17/20 11/17/20 History Allergies Allergy/AdvReac Type Severity Reaction Status Date / Time No Known Allergies Allergy Verified 11/17/20 14:50
[~2020-11-21 08:30] MED LIST changes: -ALBUMIN HUMAN 25% 50 ML IV ONE; -ASPIRIN 325 MG TAB PO ONE; -ATORVASTATIN 10 MG TAB PO ONE; -CALCIUM CHLORIDE 100 MG/ML 10 ML SYRINGE IV ONE; -CHLORHEXIDINE GLUCONATE 15 ML CUP MUCOUS MEM ONE; -CLEVIDIPINE BUTYRATE 25 MG in EMPTY BAG 1 BAG IV ONE; -DEXTROSE 5% IN WATER 1,000 ML with POTASSIUM CHLORIDE 110 MEQ, MAGNESIUM SULFATE 16 MEQ... IV ONE; -DEXTROSE 5% IN WATER 1,000 ML with POTASSIUM CHLORIDE 25 MEQ, SODIUM CHLORIDE 2.5MEQ/ML... IRRIGATION ONE; -HEPARIN SODIUM 1,000 UN/ML (10ML VL) IV ONE; -HEPARIN SODIUM,PORCINE 5,000 UNIT in SODIUM CHLORIDE 0.9% 500 ML 500 ML IV ONE; -INSULIN REGULAR 100 UNIT in SODIUM CHLORIDE 0.9% 100 ML IV ONE; -LACTATED RINGERS 1,000 ML IV ONE; +LACTATED RINGERS 1,000 ML IV SCH; +LIDOCAINE 1% (10MG/ML) FOR IV START INTRADERMA PRN; -MAGNESIUM SULFATE MG 500 MG/ML IV ONE; -MANNITOL 25% 12.5 GM/50 ML VIAL IV ONE; -METOPROLOL TARTRATE 12.5 MG TAB PO ONE; -NITROGLYCERIN-D5W PMX 25 MG/250 ML BTL IV ONE; -NITROGLYCERIN-D5W PMX 50 MG in DEXTROSE/WATER 1 250ML.BAG IV ONE; -NOREPINEPHRINE 4 MG in SODIUM CHLORIDE 0.9% 250 ML IV ONE; -PHENYLEPHRINE 40 MG in SODIUM CHLORIDE 0.9% 250 ML IV ONE; -PROPOFOL 1,000 MG/100 ML VIAL IV ONE; -PROTAMINE SULFATE 10 MG/ML 25 ML VIAL IV ONE; -PROTAMINE SULFATE 250 MG in EMPTY BAG 1 BAG IV ONE; -SODIUM BICARB 8.4% 50 ML SYR (1 MEQ/ML) IV ONE; -SODIUM CHLORIDE 0.9% 1,000 ML IV ONE; -TRANEXAMIC ACID 2,000 MG in SODIUM CHLORIDE 0.9% 80 ML IV ONE; -ceFAZolin 2,000 MG in SODIUM CHLORIDE 0.9% 30 ML IVPB ONE
[2020-11-21 09:32] VITALS: RESP 16; TEMP 97.2
[2020-11-21] MEDS ORDERED: PROPOFOL 10 MG/ML 20 ML VIAL IV ONE (10:25)
[2020-11-21] MEDS ORDERED: LIDOCAINE 1% INJ 10MG/ML (20 ML MDV) ONE (10:25)
--- NOTE | 2020-11-21 10:49 | P.OP ---
Date of Procedure: 11/21/20 Description of Procedure: PREOPERATIVE DIAGNOSIS: Colonoscopy screening. Family history gastrointestinal cancer, grandmother POSTOPERATIVE DIAGNOSIS: Colonoscopy screening. Family history gastrointestinal cancer, grandmother OPERATION: Colonoscopy to the cecum, ileocecal valve and appendiceal orifice. SURGEON: Hannah Glaser MD. ANESTHESIA: MAC. INDICATIONS: The patient is a 55-year-old female who presents for his first colonoscopy screening. Benefits and risks were described and informed consent was obtained. DESCRIPTION OF PROCEDURE: The patient had undergone Sutab prep. The patient had been brought into the operating room and laid in the left lateral decubitus position. After adequate intravenous sedation, the rectum was examined with 2% lidocaine jelly. The prostate was unremarkable. No external hemorrhoids were encountered. The rectal tone was within normal limits. No lesions were palpated in the rectal vault. An Olympus colonoscope was advanced until the cecum, ileocecal valve and appendiceal orifice were clearly viewed. The prep was excellent. No scattered diverticulosis was encountered. No colonic polyps were found. No evidence of focal colitis was found. Retroflexion of the scope demonstrated grade 1 internal hemorrhoids without active bleeding or inflammation. The colon was desufflated. The patient had tolerated the procedure well. Withdrawal time was over 6 minutes. FINDINGS: Aronchick preparation quality scale 1 (1-5) Internal hemorrhoids, grade 1 No external prolapsed hemorrhoids. No arteriovenous malformations. No adenomatous polyps. No focal colitis. RECOMMENDATIONS: Lower endoscopy in 2025 Plan - Discharge Summary Discharge Rx Participant: No New Discharge Prescriptions: Continue Aspirin [Adult Low Dose Aspirin EC] 81 mg PO DAILY Discharge Medication List Aspirin [Adult Low Dose Aspirin EC] 81 mg PO DAILY 11/17/20 [History] Follow up Appointment(s)/Referral(s): Hannah Glaser MD [STAFF PHYSICIAN] - As Needed Patient Instructions/Handouts: *[facility] - (Anesthesia) Endoscopy Discharge Instructions, Colonoscopy (DC) Activity/Diet/Wound Care/Special Instructions: Repeat colonoscopy in 5 years2025 Discharge Disposition: HOME SELF-CARE
[2020-11-21 10:51] VITALS: PULSE 58
[2020-11-21 11:07] VITALS: BP 107/71
== END 2020-11-21 11:22 | disposition home or self-care (01) ==
LOC: ORWHC2ENDO 08:30
PROVIDERS: ATTEND Surgery Plastic and Reconstructive Surgery
DX: Z12.11 Encounter for screening for malignant neoplasm of colon (principal); Z80.0 Family history of malignant neoplasm of digestive organs; K64.8 Other hemorrhoids; I25.10 Atherosclerotic heart disease of native coronary artery without angina pectoris; E78.5 Hyperlipidemia, unspecified; I25.2 Old myocardial infarction; F17.210 Nicotine dependence, cigarettes, uncomplicated; M48.061 Spinal stenosis, lumbar region without neurogenic claudication; Z79.82 Long term (current) use of aspirin
CPT/HCPCS: J2001; J2704; G0105

== ENCOUNTER 2020-12-29 12:27 | Day surgery (SDC) | payer BC ==
[2020-12-26 13:24] VITALS: BMI 27.6
[2020-12-29 12:43] VITALS: TEMP 97.8
[2020-12-29] MEDS ORDERED: LACTATED RINGERS 1,000 ML IV ONE (12:43)
[2020-12-29] MEDS ORDERED: fentaNYL (PF) 50 MCG/ML 2 ML AMP ONE (13:19)
[2020-12-29] MEDS ORDERED: IOPAMIDOL M200 10 ML VIAL ONE (13:19)
[2020-12-29] MEDS ORDERED: TRIAMCINOLONE ACETONIDE 40 MG/ML 1 ML VIAL ONE (13:19)
[2020-12-29] MEDS ORDERED: MIDAZOLAM 2 MG/2 ML VIAL ONE (13:19)
--- NOTE | 2020-12-29 13:29 | P.PCN ---
Date of Procedure: 12/29/20 Description of Procedure: PREOPERATIVE DIAGNOSIS: Lumbar radiculopathy POSTOPERATIVE DIAGNOSIS: Same PROCEDURE PERFORMED: Interlaminar Epidural Steroid Injection at theL4-5 under fluoroscopic guidance SURGEON: Balbir Molina MD ANESTHESIA: Local with 1% lidocaine 3 ml and IV sedation with Versed and fenta nyl, sedation time 5 min Fluoroscopy was used for the procedure and images were saved in the radiology portion of the chart. EBL: Minimal PROCEDURE INDICATION: The patient presents with lumbar radicular symptoms unresponsive to conservative treatment. This is the first lumbar epidural steroid injection PROCEDURE DESCRIPTION / TECHNIQUE: The patient was seen and identified in the preoperative area. Risks, benefits, complications including but not limited to infections ,bleeding ,allergic reaction to the medications ,nerve damage and incomplete pain relief, and alternatives were discussed with the patient. The patient agreed to proceed with the procedure and signed the consent. IV was started, and vital signs were stable. Patient was taken to the OR and time out was completed. The patient was placed in the prone position on procedure table and a pillow was placed under the chest area. The cervical area was prepped and draped in the usual sterile fashion. Conscious sedation was used during the procedure to decrease patients anxiety. Vital signs was monitored during the entire procedure. Using anterior-posterior fluoroscopy, the L4-5 interlaminar space was identified and the skin over this site was marked and then infiltrated with 1% lidocaine subcutaneously. Subsequently, a 20-gauge Tuohy epidural needle was inserted and advanced toward the epidural space using the loss of resistance technique and guided by AP and lateral views. The correct needle position in the epidural space was verified. After negative aspiration for blood and CSF and in the absence of paresthesias, Isovue 200 2 mL's was injected under live fluoroscopy with good epidural spread. After negative aspiration, a 5 mL mixture containing 3 mL PFNS, 1 mL 1% lidocaine ,40 mg kenalog. Needle was withdrawn intact, skin was cleansed, and bandages were applied. COMPLICATIONS: None DISPOSITION / PLANS: The patient was placed in a supine position and transferred to the recovery area in a stable condition for observation. There was no evidence of lower extremity motor or sensory deficit after the procedure. Patient was discharged from the recovery room after meeting discharge criteria. Home discharge instructions were given to the patient by the staff. The patient will be scheduled a [follow up/repeat procedure] in the clinic in 2-4 weeks.
[2020-12-29] MEDS ORDERED: IV FLUID CONTINUATION 800 ML IV ONE (13:34)
[2020-12-29 13:43] VITALS: RESP 20
--- NOTE | 2020-12-29 14:01 | FL ---
Fluoroscopy HISTORY: Pain 5 seconds fluoroscopy time supplied to the referring clinician. 2 intraoperative C-arm images docume nt the procedure. See dictated report from anesthesia.
[2020-12-29 14:22] VITALS: BP 122/72; PULSE 78
== END 2020-12-29 14:04 | disposition home or self-care (01) ==
LOC: ORPAIN 12:27
PROVIDERS: ATTEND Anesthesiology
DX: M54.16 Radiculopathy, lumbar region (principal)
CPT/HCPCS: 62323; J2250; J3301; J3010; Q9966

== ENCOUNTER 2021-01-31 11:47 | Day surgery (SDC) | payer BC ==
[~2021-01-31 11:47] MED LIST changes: -LIDOCAINE 1% (10MG/ML) FOR IV START INTRADERMA PRN
[2021-01-31 12:01] VITALS: TEMP 98.4
[2021-01-31] MEDS ORDERED: LIDOCAINE 1% (10MG/ML) FOR IV START INTRADERMA ONE (12:04)
[2021-01-31] MEDS ORDERED: fentaNYL (PF) 50 MCG/ML 2 ML AMP ONE (12:26)
[2021-01-31] MEDS ORDERED: MIDAZOLAM 2 MG/2 ML VIAL ONE (12:26)
[2021-01-31] MEDS ORDERED: IOPAMIDOL M200 10 ML VIAL ONE (12:26)
[2021-01-31] MEDS ORDERED: methylPREDNISolone ACETATE 40 MG/ML 1 ML VIAL ONE (12:26)
--- NOTE | 2021-01-31 12:42 | P.PCN ---
Date of Procedure: 01/31/21 Procedure(s) Performed: PREOPERATIVE DIAGNOSIS:1- Lumbar radiculopathy . 2-lumbar degenerative disc disease POSTOPERATIVE DIAGNOSIS: Same as preoperative diagnoses. PROCEDURE 1. Transforaminal epidural steroid injection under fluoroscopic guidance at right L4-5 level. (Fluoroscopy images stored on file in the radiology Department ) 2. Lumbar epidurogram . ANESTHESIA: Local with 1% lidocaine 3 ml , moderate sedation with intravenous Versed 2 mg and fentanyle 50 micrograms. EBL: Minimal PROCEDURE INDICATION: The patient with low back pain and radiculopathy symptoms unresponsive to conservative treatment. PROCEDURE DESCRIPTION / TECHNIQUE: The patient was seen and identified in the preoperative area. Risks, benefits, complications, and alternatives were discussed with the patient. The patient agreed to proceed with the procedure and signed the consent. IV was started, and vital signs were stable. Patient was taken to the OR and time out was completed. The patient was placed in the prone position on procedure table and a pillow was placed under the abdomen to reduce lumbar lordosis. The lumbosacral area was prepped and draped in the usual sterile fashion. Critical pause was taken. Vital signs were closely monitored during the procedure. Conscious sedation was used during the procedure to decrease patient s anxiety. Using oblique fluoroscopy, the chin of the ``Wolfgang dog at Right L4-5 level was identified, and the skin and deeper tissues just below was localized with 1% lidocaine. Subsequently, a 22-gauge 3.5-inch spinal needle was advanced under a tunneled view fluoroscopic guidance just underneath the chin of the ``Wolfgang dog at the right L4-5 Under lateral fluoroscopy, the needle was then advanced to the posterior border of the interforaminal space. After negative aspiration of CSF and blood and with no paresthesias, 1 mL Isovue 200 contrast dye was injected excellent epidurogram and outlining of the nerve root Subsequently, 3 mL of block solution containing 80 mg Depo-Medrol and 2 mL of 0.9% normal saline PF was injected. Needle was removed . At the end of the procedure, skin was cleansed, and bandages were applied. COMPLICATIONS:none DISPOSITION / PLANS: The patient was placed in a supine position and transferred to the recovery area in a stable condition for observation. There was no evidence of lower extremity motor or sensory deficit after the procedure. Patient was discharged from the recovery room after meeting discharge criteria. Home discharge instructions were given to the patient by the staff. The patient was reexamined prior to discharge.
[2021-01-31] MEDS ORDERED: IV FLUID CONTINUATION 600 ML IV ONE (12:45)
[2021-01-31 12:59] VITALS: BP 116/68; PULSE 68; RESP 18
--- NOTE | 2021-01-31 14:02 | FL ---
Fluoroscopy HISTORY: Pain 8 seconds fluoroscopy time supplied to the referring clinician. 1 intraoperative C-arm images documen t the procedure. See dictated report from anesthesia.
== END 2021-01-31 13:15 | disposition home or self-care (01) ==
LOC: ORPAIN 11:47
PROVIDERS: ATTEND Specialist
DX: M51.16 Intervertebral disc disorders with radiculopathy, lumbar region (principal); M48.061 Spinal stenosis, lumbar region without neurogenic claudication; M47.26 Other spondylosis with radiculopathy, lumbar region; Z79.82 Long term (current) use of aspirin
CPT/HCPCS: 64483; J2250; J1030; J3010; Q9966; 99152

== ENCOUNTER → 2021-03-13 | Outpatient (CLI) | payer BC | END | disposition home or self-care (01) | LOC: LABPAT 07:48 | PROVIDERS: ATTEND Orthopaedic Surgery | DX: Z01.812 Encounter for preprocedural laboratory examination (principal); M48.062 Spinal stenosis, lumbar region with neurogenic claudication; M43.16 Spondylolisthesis, lumbar region | CPT/HCPCS: 87070 ==

== ENCOUNTER → 2021-03-16 | Outpatient (CLI) | payer BC ==
--- NOTE | 2021-03-16 21:43 | CT ---
EXAMINATION TYPE: CT lumbar spine wo con DATE OF EXAM: 03/16/2021 4:30 PM COMPARISON: MRI lumbar spine October 01, 2020. Lumbar spine x-ray December 07, 2020 HISTORY: Lumbago CT DLP: 409.5 mGycm Automated exposure control for dose reduction was used. Unenhanced CT of the lumbar spine was performed. Bone and soft tissue window settings are submitted as well as coronal and sagittal reconstructions. Coronal images demonstrate slight dextroconvex scoliotic curvature centered at L2-L3 level. There are 5 lumbar-type vertebra. Vertebral body heights are maintained. Moderate disc space narrowing with mi ld to moderate anterior spurring L4-L5 level. Stable mild broad disc bulge effaces the anterior thecal sac at T12-L1 level. Axial images at L1-L2 and L2-L3 levels remain within normal limits. Axial images at L3-L4 level show mild to moderate broad disc bulge mildly effacing the anterior theca l sac along with mild to moderate facet degenerative changes bilaterally. There is mild left-sided an terior inferior neural foraminal narrowing. Axial images at L4-L5 level show moderate to advanced right greater than left facet degenerative macias ges. There is mild/moderate broad-based posterior disc protrusion. There is effacement of the anterio r and posterior lateral thecal sac causing spinal canal stenosis. There is moderate bilateral neural foraminal narrowing, right greater than left redemonstrated. Axial images at the L5-S1 level show [id number] facet arthropathy bilaterally. Spinal canal is preserved. The bilateral neural foramina remain patent. Mild calcified plaque of the aorta extends into branch vessels. Paraspinal muscle bulk is preserved. IMPRESSION: Multilevel degenerative changes greatest at L4-L5 level as detailed above where there is stable spinal canal stenosis noted. No significant change from recent MRI study.
== END | disposition home or self-care (01) ==
LOC: RADCTMAIN 16:06
PROVIDERS: ATTEND Orthopaedic Surgery
DX: M51.36 Other intervertebral disc degeneration, lumbar region (principal)
CPT/HCPCS: 72131

== ENCOUNTER → 2021-03-18 | Outpatient (CLI) | payer BC ==
[2021-03-18 08:30] LABS: Basophils # (A) 0.1 k/uL (0-0.2); Basophils % (A) 1 %; Eosinophils # (A) 0.2 k/uL (0-0.7); Eosinophils % (A) 2 %; HCT 44.5 % (39.0-53.0); HGB 14.8 gm/dL (13.0-17.5); Lymphocytes % (A) 31 %; MCH 31.9 pg (25.0-35.0); MCHC 33.2 g/dL (31.0-37.0); Mean Platelet Volume 6.7; Monocytes # (A) 0.4 k/uL (0-1.0); Monocytes % (A) 5 %; Neutrophils # (A) 3.8 k/uL (1.3-7.7); Neutrophils % (A) 58 %; Platelet Count 304 k/uL (150-450); RBC 4.64 m/uL (4.30-5.90); RDW 12.4 % (11.5-15.5); WBC 6.6 k/uL (3.8-10.6)
[2021-03-18 08:35] LABS: Prothrombin Time 10.2 sec (9.0-12.0)
[2021-03-18 09:13] LABS: Potassium 4.8 mmol/L (3.5-5.1)
== END | disposition home or self-care (01) ==
LOC: LABPAT 08:14
PROVIDERS: ATTEND Orthopaedic Surgery
DX: Z01.812 Encounter for preprocedural laboratory examination (principal); M48.062 Spinal stenosis, lumbar region with neurogenic claudication; M43.16 Spondylolisthesis, lumbar region
CPT/HCPCS: 36415; 80051; 85025; 85610

== ENCOUNTER 2021-03-21 10:14 | Day surgery (SDC) | payer BC ==
[2021-03-17 14:33] VITALS: BMI 28.3
--- NOTE | 2021-03-20 19:01 | P.HPOR ---
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 Location diffuse Activity Modification yes , cannot complete most of his daily activities due to the severity of his symptoms. Currently off work due to the pain. Ambulates with the use of a cane. Hand Dominance right DOI: Acute on chronic, no injury or trauma. DOS: None TREATMENTS COMPLETED: 6 weeks of PT completed? Yes How many sessions? N/A Did it help? No Physician directed home exercise completed? yes , without improvements Medications yes List: Gabapentin 300mg TID with no improvements. Alternative interventions Chiropractic?: No Brace: No Injections Yes (lumbar SALAS) How many? 2, #3 to be scheduled Did they help? No RFA: No SUBJECTIVE: Today Mr. Daugherty presents to the office for a follow up evaluation of his low back. Since the time of the patient's last appointment his pain and symptoms have not improved at all. He feels that he has failed all conservative treatments at this time. Patient is currently off work due to the severity of his symptoms and is unable to complete most of his daily functions. He presents to the office with the use of a cane for stability. HPI: Mr. Daugherty was last seen on 01/04/2021 regarding his low back. To review, at the time of the patient's previous appointment (12/07/2020), they were scheduled to get a intralaminar injection at L4-L5 (SALAS) and given home exercise/health maintenance information. Since completing the injection and starting the exercise regimen the patient reports that he has not improved. He did have temporary improvement (for a day or two) but this did wane and his pain has since returned. His pain, he notes, has increased on the right side of the low back. Overall he felt that he is unable to complete many of his daily functions due to the severity of his pain. Efe reported that he is unable to complete many of his job functions due to the severity of the pain. Of note, the patient does present to the office with the use of a cane for ambulation. Additionally, he notes that he he is a pack-a-day smoker. He was otherwise doing well. The patient was previously on 12/07/2020 regarding his low back. He noted that his pain had been going on for one year, stating that the pain has gradually worsened over the last three months. He denied any acute injury to indicate an exact onset for his pain. His pain was described as an aching and increases with ambulation. Mr. Daugherty does ambulate with the use of a cane for stability and pain management. He notes that he has previously done both physical therapy and home exercises for his pain management without relief. Mr. Daugherty noted neurogenic claudication when ambulating and notes that walking long distances or standing for extended periods of time is difficult to do. Efe did state that he has occasional groin pain but this waxes and wanes. His pain does radiate into his lower extremities bilaterally. Denied any numbness in his genitals or issues with his bowels or incontinence. The patient reported that he is scheduled to get intralaminar injections for his low back pain on 12/09/2020. Patient was otherwise doing well. The patients' past social, medical, family, surgical history, as well as review of systems, have been reviewed. Please refer to the Neurosurgery History and Physical form that has been scanned in to our electronic medical record system. Review of Systems 14 points review of systems completed and as stated in HPI, all other systems reviewed are negative. Past Medical History Past Medical History: Hyperlipidemia, Myocardial Infarction (AL) Additional Past Medical History / Comment(s): CHRONIC LUMBAR PAIN. 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 COLONOSCOPY,prostate bx Past Anesthesia/Blood Transfusion Reactions: No Reported Reaction Additional Past Anesthesia/Blood Transfusion Reaction / Comment(s): no known hx of blood transfusion Date of Last Stent Placement:: 08-28-13 Smoking Status: Current every day smoker - Past Family History Mother Family Medical History: Coronary Artery Disease (CAD) Additional Family Medical History / Comment(s): CABG,Parkison's Father Family Medical History: Cancer Additional Family Medical History / Comment(s): mesothelioma Sister(s) Family Medical History: Cancer Additional Family Medical History / Comment(s): cancer cyst on chest Medications and Allergies Home Medications Medication Instructions Recorded Confirmed Type Aspirin [Adult Low Dose Aspirin EC] 81 mg PO DAILY 11/17/20 03/17/21 History Atorvastatin [Lipitor] 20 mg PO DAILY 12/26/20 03/17/21 History Allergies Allergy/AdvReac Type Severity Reaction Status Date / Time No Known Allergies Allergy Verified 03/17/21 14:13 Physical Examination Osteopathic Statement: *. No significant issues noted on an osteopathic structural exam other than those noted in the History and Physical/Consult. General: Awake, alert, appropriate for age, in no acute distress. HEENT: No unusual neck masses around region of lateral neck triangle, thyroid, supraclavicular groove Heart: Regular rate and rhythm, normal S1, S2 and no murmur/gallop. Lungs: Clear to auscultation bilaterally with no use of accessory muscles. Extremities: Skin warm and dry without acute lesions, coloration, temperature, skin intact, no tenderness or erythema Integument: Hairy patches: Absent Dorsal skin dimples: Absent Cafe au lait spots: Absent Surgical incisions: No Palpation: Please see Pain drawing on Intake sheet for further detail. Midline spinal tenderness: No E6 Paralumbar tenderness: Yes E6 Parathoracic tenderness: No E6 Buttocks tenderness: No E6 Special findings: No POSTURAL and MUSCULO-SKELETAL EVALUATION: Coronal Balance: NEUTRAL Recumbent testing: Patient is able to lay flat on back Sagittal Balance: NEUTRAL Shoulder Profile: LEVEL Pelvic Girdle: LEVEL Neck ROM: RESTRICTED Lumbar ROM: RESTRICTED Shoulder ROM: Symmetrical Hip ROM: Symmetrical Knee ROM: Symmetrical Hands: Normal appearance, symmetrical Feet: Normal appearance, Symmetrical VASCULAR STATUS : LEFT RIGHT Wrist Pulses INTACT INTACT Pedal Pulses (Dors. pedis & post.tibialis) INTACT INTACT Color NORMAL NORMAL Edema Absent Absent NEUROLOGIC EXAMINATION: Mental Status:Awake and alert, fully oriented, with normal attention, concentration and memory, and fluent, appropriate speech. Cranial Nerves: I: Olfactory not tested. II: Visual acuity normal, no visual field deficit noted with confrontation. III,IV: Normal pupillary reflexes & intact extraocular movements without nystagmus. V,: Intact symmetrical facial sensation. VII: Intact symmetrical facial motor movement VIII: Hearing intact. IX,X: Intact gag, swallow, & normal voice. XI: Sternocleidomastoid, trapezius function intact. XII: Tongue midline with normal movements. L'hermitte's Sign: Negative / absent Spurling'Sign: Absent bilaterally. Cubital percussion test: Absent bilaterally. Ramona-Tinel sign - Carpal region: Absent bilaterally. Straight Leg Raising: Absent bilaterally. Crossed straight leg raise: negative O8 MOTOR EXAM (0-5/5, N/T) STRENGTH RIGHT LEFT Shoulder Abd (not part of the GLORIA score) 5 5 Elbow Flexors 5 5 Elbow Extensor 5 5 Wrist Dorsiflexors 5 5 Finger Abductor 5 5 Insulation Sprayer 5 5 Hip Flexor (Not part of GLORIA Motor score) 5 4 Knee Flexor 5 5 Knee Extensor 4 5 Ankle dorsiflexor 4 4 Ankle plantarflexion 5 4 Extensor hallucis 5 5 REFLEXES(0-4/2, NT) RIGHT LEFT Upper Extremities 2 2 Lower Extremities 2 2 Pathological Reflexes RIGHT LEFT Collazo's Absent Absent Clonus Absent Absent Babinski Absent Absent # Indicates mechanical impairment Muscle appearance: Symmetrical, without signs of atrophy or dystrophy. Rectal Tone:Deferred Sensory system (0-4, N/T) Test type RU JUICE RL LL Joint-Position 2 2 2 2 Vibration 2 2 2 2 Pain & LT sense 2 2 2 2 Dermatomal Deficit: None None L4-5 L4-5 Gait and Functional Evaluation: Ambulatory aids: Independent Romberg's test: Intact bilaterally Toe heel walk / heel-toe walk intact while maintaining satisfactory balance? yes Squatting/straightening w/o assistance to a min of 60 degree knee flexion? yes Single leg stance: intact Trendelenburg sign negative bilaterally Hand and finger dexterity intact bilaterally? yes Disdiadochokinesis examination negative bilaterally? yes Results XRay taken on 12/07/20 of Lumbar/Pelvis was reviewed by Dr. Fisher and indicates: - Overall fairly well-maintained alignment there is a grade 1 spondylolisthesis which accentuates on flexion of L4 on L5. There is facet hypertrophy in this area. There is no fracture dislocation otherwise noted. AP pelvis demonstrates concurrent level pelvis. MRI demonstrates: Disc height loss L4-5 withL4 5 grade 1 spondylolisthesis with L4 5 disc desiccation. There is stenosis at L4 5 which is noted as well due to facet hypertrophy and ligamental overgrowth. Overall alignment maintained otherwise. There is mild stenosis L5-S1 noted. There are boggy facets at L4-5 noted as well. There is no other lesion or fracture noted. There is ligamental hypertrophy as well as disc bulging. Assessment and Plan Assessment: It was my pleasure to have seen and examined Efe. I reviewed the patient's clinical syndrome, physical findings, and imaging studies during the appointment today. It is my impression that the patient has a diagnosis of. 1. L4-L5 grade 1 spondylolisthesis mobile 2.L4-L5 stenosis 3. Bilateral lower extremity radiculopathy 4. b/l LE weakness I outlined the natural course history without intervention and various interventional options. Plan: 1. Based on his imaging, clinical findings, and failure to improve with conservative treatments we did discuss surgical intervention to alleviate his s ymptoms. We discussed a L4-L5 MIS TLIF. The risks and benefits of the procedure were discussed and the patient is understanding. All questions and concerns were addressed and the patient wishes to proceed with the scheduled surgery. Surgical Procedure Risk Review Efe Daugherty is a 55 year old male presenting for evaluation of sudden onset of low back and leg pain. It was my pleasure to have seen and examined Mr. Daugherty. In our visit today we have had a chance to go over subjective complaints, physical examination findings and treatments, including the natural course h istory without intervention and various interventional options. The imaging demonstrates L4-5 unstable spondylolisthesis with foraminal and central stenosis . On physical exam, Mr. Daugherty demonstrates LE weakness, low back pain and mechanical pain . I explained to the patient that as his condition progresses it could cause Continued or progressive symptoms . At this time, based on the patients imaging and physical exam, I recommend surgery in the form or a: L4-5 MIS TLIF . I discussed the risk and benefits of this procedure at length with Mr. Daugherty. The patient agreed to consider pursuing the procedure mentioned above. Plan: 1. L4-5 minimally invasive transforaminal lumbar interbody fusion 2. Follow up with PCP for surgical clearance 3. Review of surgical risks and benefits as well as an educational packet on the proposed surgical procedure. Risks: All surgical procedures come with inherent risks, including those related to positioning, anesthesia, intraoperative findings, and postoperative complications. It is important to understand that surgery does not come with any guarantee of a successful outcome as complications and adverse events are always possible. The patient was given a handout in office today discussing the surgical procedure and risks associated with the intervention, both of which were discussed with the patient. These risks include but are not limited to the following: ? Experiencing same, different or even worse symptoms in back, neck, arms, or legs compared to before surgery. ? Requiring further surgery or other forms of treatment presently or at some time in the future at same or other levels of the intended spine surgery. ? On an extreme but fortunately relatively rare basis severe complication such as blindness, stroke, heart attack, temporary and/or permanent nerve injury, paralysis, coma, or may occur, sometimes without known explanation. ? Surgical complications may include but are not limited to risk of infection, fluid accumulation in the surgical dissection site, including a seroma or hematoma, that requires additional surgery, wound drainage, bleeding, new numbness or weakness, vision changes/loss, spinal fluid leakage, non-healing and/or infected incision, headaches, difficulty or inability to swallow, hoarseness, hemopneumothorax, pneumothorax, impotence, retrograde ejaculation, vaginal dryness; injury to nerves, spinal cord, blood vessels, lymphatics or other vital organs (i.e., bowel injury, injury to the great vessels); heterotopic bone formation; complications related to the hardware such as screws, rods, cages including misplaced hardware, device failure, instrumentation at the wrong spine level, hardware fracture/breakage, or hardware loosening; vertebral failure of the spinal column above or below the newly placed hardware; retained surgical instrumentations or devices and the need for further surgery. ? Medical risks of the planned spine surgery include but are not limited to generalized Infections to the whole body or local areas outside of the surgical site (sepsis), heart attack, bleeding, anaphylaxis, meningitis, seizure, epilepsy, hearing loss, burn garces, laceration of the head or other areas of the body, bruising, hypersensitivity of the skin, bladder over distension; allergic reaction; shoulder injury related to positioning; fat, blood and air clots to other areas of the body like heart, lungs, brain; failure of internal organs such as lungs, kidneys, liver and excessive bleeding. If blood transfusions are necessary, note that transfusions may cause intolerance reactions such as anaphylaxis or other complex reactions. Despite best efforts, the results of spine surgery might not heal in terms of bone, soft tissues such as skin, fascia, ligaments, and joints. Additionally, in order to achieve best possible results, spine surgery may be carried out beyond the initially planned levels and involve decompression, fusion including insertion of hardware at levels other than the original intended area of surgical interest change some portions of the procedure in order to ensure the best possible outcomes. With spine surgery and spinal fusion, there are different off label uses of instrumentation (devices, implants and hardware) as well as biological substances (bone morphogenic proteins, demineralized bone matrix) as well as using extra bone from allograft sources (i.e. cadaver bone) or autograft (iliac crest bone, ribs, or the spine itself). The patient has been given information about these practices and their inherent risks and benefits. [facility] Physician Assistants are medically trained surgical providers who function in the outpatient, inpatient, and operating room setting under the direct supervision of the attending surgeon.They assist in the operating room with direct supervision of the attending surgeons. The patient has had a chance to review all the listed information, has been given print outs detailing this information, and has had all his/her questions answered to their satisfaction. It was my pleasure to have seen and examined Mr. Daugherty. In our visit today we have had a chance to go over my understanding of our patient's current condition, the natural course history without intervention and various interve ntional options. Questions were invited and answered, and the patient wishes to proceed as outlined above. I have seen and examined the patient for 25 minutes and we have spent more than 50% of the time in repeat and detailed counseling about the patient's condition, its natural course history with out and as much as can be predicted with surgery and re-review of various surgical treatment options. In conclusion,Mr. Daugherty and his spouse/partner requested we proceed with the above suggested surgery and are willing to accept risks and limitations of the suggested surgery as nature of the disease process and our best attempts at treatment for the condition. Thank you again for allowing us to be part of your patient's care. Please don't hesitate to contact me if you have any further questions. Signed and authenticated by: [facility] [id number] [address]
[~2021-03-21 10:14] MED LIST changes: +DEXAMETHASONE SOD PHOSPHATE 4 MG/ML 1 ML VIAL IV ONE; -LACTATED RINGERS 1,000 ML IV SCH; +LIDOCAINE 1% (10MG/ML) FOR IV START INTRADERMA PRN; +MIDAZOLAM 2 MG/2 ML VIAL IV PRN; +ONDANSETRON 4 MG/2 ML VIAL IVP ONE
[2021-03-21] MEDS: LACTATED RINGERS 1,000 ML IV SCH (11:33)
[2021-03-21] MEDS ORDERED: PHENYLEPHRINE-0.9% NACL SYG 1,000 MCG/10 ML SYRINGE ONE (14:54)
[2021-03-21] MEDS ORDERED: PROPOFOL 10 MG/ML 20 ML VIAL IV ONE (14:54)
[2021-03-21] MEDS ORDERED: SUCCINYLCHOLINE CHLORIDE 100 MG/5 ML SYR IV ONE (14:54)
[2021-03-21] MEDS ORDERED: MIDAZOLAM 2 MG/2 ML VIAL ONE (14:54)
[2021-03-21] MEDS ORDERED: TRANEXAMIC ACID 1,000 MG/10 ML VIAL ONE (14:54)
[2021-03-21] MEDS ORDERED: fentaNYL (PF) 50 MCG/ML 2 ML AMP ONE (14:54)
[2021-03-21] MEDS ORDERED: LIDOCAINE 1% INJ 10MG/ML (20 ML MDV) ONE (14:54)
[2021-03-21] MEDS ORDERED: HYDROmorphone (PF) 1 MG/ML ONE (14:54)
[2021-03-21] MEDS ORDERED: SODIUM CHLORIDE 0.9% 100 ML BAG ONE (14:54)
[2021-03-21] MEDS ORDERED: ROCURONIUM 10 MG/ML (5 ML VIAL) IV ONE (14:54)
[2021-03-21] MEDS ORDERED: TRANEXAMIC ACID 1,000 MG in SODIUM CHLORIDE 0.9% 100 ML IVPB ONE ×4 (15:45)
[2021-03-21] MEDS ORDERED: BUPIVACAINE (PF) 0.25% 30 ML VIAL SQ ONE (15:56)
[2021-03-21] MEDS ORDERED: GELATIN SPONGE,ABSORB (SMALL) 1 EACH SPONGE TOPICAL ONE (15:57)
[2021-03-21] MEDS ORDERED: THROMBIN (BOVINE) 5,000 UNIT VIAL TOPICAL ONE (15:58)
[2021-03-21] MEDS ORDERED: LACTATED RINGERS 1,000 ML IV ONE ×2 (17:30→20:30)
[2021-03-21] MEDS ORDERED: CYCLOBENZAPRINE 5 MG TAB PO PRN (19:25)
[2021-03-21] MEDS ORDERED: SENNOSIDES-DOCUSATE SODIUM 1 EACH TAB PO PRN (19:25)
[2021-03-21] MEDS ORDERED: HYDROmorphone 1 MG/ML 1 ML SYRINGE IVP PRN (19:25)
[2021-03-21] MEDS ORDERED: MAGNESIUM HYDROXIDE 2,400 MG/10 ML CUP PO PRN (19:25)
[2021-03-21] MEDS ORDERED: HYDROmorphone 0.5 MG/0.5 ML SYRINGE IVP PRN (19:25)
[2021-03-21] MEDS ORDERED: ONDANSETRON 4 MG/2 ML VIAL IVP PRN (19:25)
[2021-03-21] MEDS: HYDROmorphone 0.5 MG/0.5 ML SYRINGE IVP PRN ×2 (19:30→19:51)
--- NOTE | 2021-03-21 19:43 | P.PN ---
Progress Note - Text Progress Note Date: 03/21/21 Brief Post Op: Surgeon: Khris Assist: Branch Pre op dx; L4-L5 severe stenosis with spondylosis and grade 1 spondylolisthesis with neurogenic claudication Post op dx: Same Procedure: L4-L5 minimally invasive transforaminal lumbar interbody fusion with minimally invasive bilateral laminal foraminotomies decompression Anesthesia: GETA EBL: 100 Fluids: 2000 UO: 100 Dispo: Stable to PACU Post op Plan: Admit to hospital with medicine consult and management Encourage ambulation IS 10x/hr Teds/SCDs Pain control Obtain LSO brace to help with ambulation, he does not need it to get up to start PT/OT daily
[2021-03-21] MEDS ORDERED: KETOROLAC 15 MG/ML 1 ML VIAL IVP ONE (20:10)
[2021-03-21] MEDS ORDERED: HYDROmorphone 0.5 MG/0.5 ML SYRINGE IVP ONE (20:12)
[2021-03-21] MEDS ORDERED: KETOROLAC 30 MG/ML 1 ML VIAL ONE (20:12)
--- NOTE | 2021-03-21 21:48 | XR ---
Fluoroscopy HISTORY: Lumbar fusion 91 seconds fluoroscopy time supplied to the referring clinician. 2 intraoperative C-arm images docum ent the procedure. See dictated report from orthopedic surgery.
[2021-03-21] MEDS: ACETAMINOPHEN TAB 500 MG TAB PO SCH (21:50)
[2021-03-21] MEDS: GABAPENTIN 300 MG CAP PO SCH (21:51)
[2021-03-21] MEDS: DEXAMETHASONE SOD PHOSPHATE 4 MG/ML 1 ML VIAL IVP SCH (21:51)
[2021-03-22] MEDS: ACETAMINOPHEN TAB 500 MG TAB PO SCH ×2 (05:57→12:45)
[2021-03-22 06:22] LABS: Basophils % (A) 0 %; Eosinophils % (A) 0 %; HCT 39.1 % (39.0-53.0); HGB 13.5 gm/dL (13.0-17.5); Lymphocytes # (A) 0.6 k/uL (1.0-4.8); Lymphocytes % (A) 5 %; MCHC 34.4 g/dL (31.0-37.0); Mean Platelet Volume 6.9; Monocytes # (A) 0.4 k/uL (0-1.0); Monocytes % (A) 3 %; Neutrophils # (A) 10.6 k/uL (1.3-7.7); Neutrophils % (A) 91 %; Platelet Count 286 k/uL (150-450); RBC 4.21 m/uL (4.30-5.90); RDW 12.7 % (11.5-15.5); WBC 11.7 k/uL (3.8-10.6)
[2021-03-22 07:04] VITALS: RESP 17
--- NOTE | 2021-03-22 08:04 | P.PN ---
Progress Note - Text Progress Note Date: 03/22/21 [facility] Progress Note DOS: 03/21/2021 POD:1 SUBJECTIVE: Patient seen and examined is doing fairly well he is sitting up in his chair currently. He has been up walking around and to the bathroom. He denies any new symptoms states his legs feel slightly better. Denies any cramping denies any fevers chills shortness of breath or chest pain at this time. States that he is hungry OBJECTIVE: VSS General: AOX3, NAD Incision CDI Motor Exam: RUE: 5/5 SA, EF, EE, WF, WE, Intrinsic, Human Resources Hr Generalist LUE: 5/5 SA, EF, EE, WF, WE, Intrinsic, Human Resources Hr Generalist RLE: 4+/5 HF, KE, KF, DF, PF, EHL, FHL LLE: 4+/5 HF, KE, KF, DF, PF, EHL, FH Reflexes: 2/4 in UE and LE b/l SILT C5-T1 and L2-S1 Dermatomal deficit: None +distal pulses palpable Negative hoffmans b/l Negative babinski b/l No clonus ASSESSMENT: 55-year-old male postop day 1 L4 5 decompression fusion PLAN: -Appreciate senior financial consultant and team management. -Activity: Ambulate QID, OOB all meals, up and about, limit lifting bending twisting to less than 5 lbs. Use walker or cane if needed for stability. -Daily PT/OT, increase ambulation strength and balance. -Brace when up and about, not needed in bed or chair -Pain control: Adequate at this time -Meds: reviewed -GI ppx: senna, Miralax -REGI cunninghamey when up and about, bedside commode if needed -DVT PPX: OK to restart Heparin tonight -Hygiene: Shower today. Maintain dressing clean and dry. Meticulous cleaning after BMs away from incision site -Encourage IS 10x/hr -Dispo: Pending
[2021-03-22] MEDS: LACTATED RINGERS 1,000 ML IV SCH (09:43)
[2021-03-22] MEDS: GABAPENTIN 300 MG CAP PO SCH (09:44)
[2021-03-22] MEDS: DEXAMETHASONE SOD PHOSPHATE 4 MG/ML 1 ML VIAL IVP SCH (09:44)
[2021-03-22 09:45] LABS: African American GFR (CKD) 90.7 (60.0-200.0); Anion Gap 9.5 mmol/L (4.00-12.00); BUN/Creat Ratio 12.9 Ratio (12.00-20.00); Blood Urea Nitrogen 13.8 mg/dL (9.0-27.0); Calcium 8.9 mg/dL (8.7-10.3); Carbon Dioxide 23.3 mmol/L (21.6-31.8); Non-African American GFR(CKD) 78.3 (60.0-200.0); Potassium 4.5 mmol/L (3.5-5.5)
--- NOTE | 2021-03-22 11:21 | P.CONS ---
History of Present Illness - History of Present Illness This is a pleasant 55 years old male with past medical history of hyperlipide gael, chronic lumbar pain. His PCP is Dr. Siu Presents with low back pain with bilateral lower extremity radiculopathy and weakness so due to secondary to lumbar stenosis and spondylolisthesis, He is status post Minimally invasive transforaminal lumbar interbody fusion L4 to L5. Today is postop day #1 Patient is lying in chair, looks comfortable not in distress. Denies any weakness in his lower extremity stating he was able to walk. His pain is controlled except when he transitioned in and out of his bed. He still feels some numbness in his feet but states is better. No urinary complaints. Eating well. No chest pain or dyspnea. He is constipated but could be due to pain medication and he informed he smokes about less than pack per day, he was counseled to quit and he agreed but he declines nicotine patch. The declines alcohol or illicit drugs. Vitas looks stable. Labs reviewed he has mild leukocytosis of 11.7 but also he is on dexamethasone Rest of CBC, BMP is unremarkable. Buckner virus not detected HIV: nonreactive Review of Systems CONSTITUTIONAL: No fever, no malaise, no fatigue. HEENT: No recent visual problems or hearing problems. Denied any sore throat. CARDIOVASCULAR: No orthopnea, PND, no palpitations, no syncope. PULMONARY: No shortness of breath, no cough, no hemoptysis. GASTROINTESTINAL: No diarrhea, no nausea, no vomiting, no abdominal pain. Normoactive bowel sounds. NEUROLOGICAL: No headaches, no weakness, no numbness. HEMATOLOGICAL: Denies any bleeding or petechiae. GENITOURINARY: Denies any burning micturition, frequency, or urgency. MUSCULOSKELETAL/RHEUMATOLOGICAL: Denies any joint pain, swelling, or any muscle pain. ENDOCRINE: Denies any polyuria or polydipsia. Past Medical History Past Medical History: Hyperlipidemia, Myocardial Infarction (VT) Additional Past Medical History / Comment(s): CHRONIC LUMBAR PAIN. 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 COLONOSCOPY,prostate bx Past Anesthesia/Blood Transfusion Reactions: No Reported Reaction Additional Past Anesthesia/Blood Transfusion Reaction / Comm: no known hx of blood transfusion Date of Last Stent Placement:: 08-28-13 Past Psychological History: No Psychological Hx Reported Smoking Status: Current every day smoker Past Alcohol Use History: None Reported Additional Past Alcohol Use History / Comment(s): started smoking at age 14,<1ppd Past Drug Use History: None Reported - Past Family History Mother Family Medical History: Coronary Artery Disease (CAD) Additional Family Medical History / Comment(s): CABG,Parkison's Father Family Medical History: Cancer Additional Family Medical History / Comment(s): mesothelioma Sister(s) Family Medical History: Cancer Additional Family Medical History / Comment(s): cancer cyst on chest Medications and Allergies Home Medications Medication Instructions Recorded Confirmed Type Aspirin [Adult Low Dose Aspirin EC] 81 mg PO DAILY 11/17/20 03/21/21 History Atorvastatin [Lipitor] 20 mg PO DAILY 12/26/20 03/21/21 History Cyclobenzaprine [Flexeril] 5 mg PO BID PRN #30 tablet 03/22/21 Rx Gabapentin 300 mg PO TID #90 cap 03/22/21 Rx Sennosides/Docusate Sodium [Senna 1 each PO DAILY PRN #30 capsule 03/22/21 Rx Plus 8.6-50 mg Softgel] cefaDROXiL [Duricef] 500 mg PO Q12HR #10 cap 03/22/21 Rx oxyCODONE-APAP 5-325MG [Percocet 1 tab PO Q6HR PRN #28 tab 03/22/21 Rx 5-325 mg] Allergies Allergy/AdvReac Type Severity Reaction Status Date / Time No Known Allergies Allergy Verified 03/21/21 11:12 Physical Exam Vitals: Vital Signs Temp Pulse Pulse Pulse Resp BP BP 03/22/21 06:42 97.6 F 62 17 96/59 03/22/21 05:00 98.9 F 64 20 03/22/21 00:05 65 03/21/21 23:35 67 03/21/21 23:05 73 03/21/21 22:35 78 03/21/21 22:05 85 03/21/21 21:35 76 03/21/21 21:15 98.9 F 75 20 03/21/21 20:20 82 18 03/21/21 20:05 81 16 03/21/21 19:50 91 16 03/21/21 19:39 89 16 03/21/21 19:24 97.2 F L 98 16 03/21/21 11:16 97.6 F 76 18 114/73 BP Pulse Ox 03/22/21 06:42 94 L 03/22/21 05:00 103/66 97 03/22/21 00:05 100/64 93 L 03/21/21 23:35 98/62 96 03/21/21 23:05 99/62 98 03/21/21 22:35 96/62 94 L 03/21/21 22:05 102/67 95 03/21/21 21:35 114/71 95 03/21/21 21:15 130/80 100 03/21/21 20:20 134/73 100 03/21/21 20:05 127/72 97 03/21/21 19:50 140/82 96 03/21/21 19:39 140/82 100 03/21/21 19:24 125/85 97 03/21/21 11:16 98 Intake and Output 03/21/21 03/22/21 03/22/21 22:59 06:59 14:59 Intake Total 1350 100 Output Total 440 700 Balance 910 -600 Intake: IV 950 Intake, IV Titration 400 Amount ceFAZolin 2 gm In Sodium 400 Chloride 0.9% 50 ml @ 100 mls/hr IVPB Q8HR [facility] Rx# :[id number] Oral 100 Output: Urine 340 700 Uretheral (Bolanos) 350 Estimated Blood Loss 100 Other: Weight 74.4 kg GENERAL: The patient is alert and oriented x3, not in any acute distress. Well developed, well nourished. HEENT: Pupils are round and equally reacting to light. EOMI. No scleral icterus. No conjunctival pallor. Normocephalic, atraumatic. No pharyngeal erythema. No thyromegaly. CARDIOVASCULAR: S1 and S2 present. No murmurs, rubs, or gallops. PULMONARY: Chest is clear to auscultation, no wheezing or crackles. ABDOMEN: Soft, nontender, nondistended, normoactive bowel sounds. No palpable organomegaly. -MUSCULOSKELETAL: No joint swelling or deformity. Lumbar dressing is in place, rest of exam is deferred to surgery team EXTREMITIES: No cyanosis, clubbing, or pedal edema. NEUROLOGICAL: Gross neurological examination did not reveal any focal deficits. SKIN: No rashes. No petechiae Results CBC & Chem 7: 03/22/21 05:43 03/22/21 05:43 Labs: Abnormal Lab Results - Last 24 Hours (Table) 03/22/21 Range/Units 05:43 WBC 11.7 H (3.8-10.6) k/uL RBC 4.21 L (4.30-5.90) m/uL Neutrophils # 10.6 H (1.3-7.7) k/uL Lymphocytes # 0.6 L (1.0-4.8) k/uL Assessment and Plan Assessment: lumbar stenosis and spondylolisthesis, He is status post Minimally invasive transforaminal lumbar interbody fusion L4 to L5. Today is postop day #1 Nicotine dependence hyperlipidemia Plan: This is a pleasant 55 years old male who presents with lumbar radiculopathy status post fusion surgery for L4 to L5. Clinically he is doing well continue with dexamethasone Continue with pain medication per surgery primary team. Laxative as needed Patient consulted to quit Labs and medication were reviewed.. Continue same treatment. Continue with symptomatic treatment. Resume home medication. Monitor lytes and vitals. DVT and GI prophylaxis. Further recommendations depends on the clinical course of the patient DVT prophylaxis: Deferred to surgery primary team GI Prophylaxis: no need PT/OT: Ordered we recommend patient follow up with his PCP Dr. Siu in 1 week, patient was informed with the same Thank you for consulting us, we will follow up with you
[2021-03-22 12:25] LABS: Hepatitis B Surface Antigen Nonreactive (Nonreactive); Hepatitis C IgG Antibody Nonreactive (Nonreactive)
[2021-03-22 13:36] VITALS: BP 97/59; PULSE 60; TEMP 98.4
--- NOTE | 2021-03-22 15:28 | P.DS ---
Providers Date of admission: 03/21/2021 Expected date of discharge: 03/22/21 Attending physician: Connor Pinedo DO Consults: 03/21/21 19:30 Consult Physician Routine Consulting Provider: Lefty Siu Consult Reason/Comments: medical management Do you want consulting provider notified?: Yes Primary care physician: Lefty Siu Hospital Course: Date of admission: 03/21/2021 Date of discharge: 03/22/2021 Admission diagnosis: Status post L4-L5 minimally invasive transforaminal lumbar interbody fusion Discharge diagnosis: Same Attending physician: Dr. Pinedo Surgical procedures: L4-L5 minimally invasive transforaminal lumbar interbody fusion Brief history: Patient is a 55-year-old male with a history of chronic low back pain, lower extremity radiculopathy and lower extremity weakness. At this point patient has failed conservative treatment measures and has opted to proceed with a elective L4-L5 minimally invasive transforaminal lumbar interbody fusion. Hospital course: Details of patient's surgery can be found in operative report. Patient tolerated the procedure well and was subsequently transported to orthopedic floor. Patient's orthopeidc and medical care was provided daily. Patient had daily laboratory tests performed for evaluation of overall blood counts. Patient had daily physical therapy to include strengthening range of motion as well as education with walker ambulation. Patient was noted to have a relatively uneventful postoperative course. Patient reported satisfactory pain control with oral pain medications by postoperative day 0. Patient showed satisfactory progress with physical therapy. Patient moved steadily through the program and had no difficulty meeting the goals by postoperative day []. Given patient's otherwise satisfactory course and having met physical therapy goals, plan is to discharge patient [home] on postoperative day []. Discharge condition/disposition: Patient will be discharged [home] in stable condition. Discharge medications: Instructions are given on resumption of patient's normal daily medications per primary care recommendation, in addition patient will be prescribed Duricef 500 mg, oxycodone 5 mg/325 mg, gabapentin 300 mg, Flexeril 5 mg, senna S, . Decadron 4 mg Spine Discharge and Recovery Instructions Dressing: Okay to remove foam dressing on 03/28/2021. Okay to shower over the incision after removal of the foam tape. Keep hugo in good position and condition. Utilize basic gauze bandage as needed over the incision Follow up: Please confirm a follow up appointment with your surgeon 3 weeks post operatively. Please make an appointment to follow up with your PCP in 1-2 weeks after surgery for evaluation 3 phase, 3-week plan POST OP WEEKS 1-3 1. Lifting/carrying/pushing/pulling limited to less than 5 pounds. 2. Do not sit for longer than 15 minutes at one time. Get up and walk around. Prolonged sitting is NOT advised. If you lay down, see if you can tolerate laying down on you front (belly side) 3. Walk for periods of 15 minutes = 1 mile but no longer; do it multiple times times each day. 4. Ice your low back after activity. POST OP WEEKS 3-6 1. Lifting limited to less than 20 pounds. 2. Do not sit for longer than 30 minutes at a time. Frequently change positions. Use a sit-to stand workstation or take frequent breaks from sitting if you have returned to work. 3. Walk for 30 minutes each day. If possible, do these three or more times a day POST OP WEEKS 6+ At your 6-week appointment we will give you a physical therapy referral to focus on a core stabilization and strengthening program. You should also work on leg & buttock strengthening, hamstring & quadriceps stretching, and continue a low impact aerobic activity program such as swimming, walking, or riding a stationary bicycle. During the initial 6 weeks after your surgery, you are at the highest risk of re-injuring your spine. You should generally avoid BLTs (bending, lifting and twisting combination motions) and follow the above guidelines to reduce the chance of reinjury. You can anticipate post op appointments in our office at approximately 3 weeks and 6 weeks after your surgery. INCISION CARE: If your incision is not draining you do NOT need to cover it with a dressing. Keep your incision clean, dry and intact. In most cases, we apply skin glue, hugo or sutures to the incision at the time of surgery. This will be like a crust or have the appearance of a scab and will fall off in time on its own. The stitches or hugo need to be removed at 3 weeks post op appointment. You may begin to shower 3 days after surgery (th is allows the glue to artis well). However, please avoid scrubbing the incision site or peeling off any of the skin glue. This will ensure optimal healing of your incision. Also, during this time avoid soaking the incision area in water - this includes swimming pools, hot tubs or baths. No ointments, lotions or oils on the incision until your surgeon allows. Leave hugo, sutures or glue in place. Neurological dysfunction that comes on suddenly can also be a sign of a stroke. Below some common symptoms of a stroke are listed: B - balance difficulty such as sudden onset walking or leaning to one side - NEW E - eye problem such as sudden double vision or trouble seeing on one side - NEW F - Facial weakness or numbness on one side - NEW A - Arm or leg weakness or numbness on one side - NEW S - Slurred speech or difficulty with word finding - NEW T - Time is BRAIN! Call 911 as soon as you recognize these symptoms Diet: Consume a regular diet rich in vegetables and lean protein such as chicken or fish. You should consume in a ratio of approximately 20% fats|40% carbohydrates|40%protein. Vegetables, sweet potatoes, brown rice or quinoa are examples of good carbohydrates. Chips, white bread, cookies and sweets/sugar are examples of bad carbohydrates. Limit your bad carbs, go wild with good carbs. "Life's Simple 7" Guidelines as per [employer] These will help you reclaim your life after surgery and distillation operator helper in your recovery, keeping in mind your restrictions. (1) Get Active. Physical activity can help people lose weight, control high blood pressure and cholesterol, feel emotionally better, and sleep better. (2) Control Cholesterol. Avoid a diet high in saturated fat, trans fat, & c holesterol. Limit whole milk & cream, ice cream, butter, egg yolks, processed meats (like sausage and hot dogs), and fatty meats. Choose healthy foods that are low in saturated fat, trans fat and cholesterol which include: Fruits and vegetables, fiber rich grain products (like whole grain pasta and brown rice), lean meat such as chicken, fish, nuts, seeds, and legumes. (3) Eat Better. Eat small portions. Shop at the grocery with a list and do not stray from it. Tips for a healthy diet include: Limit sodium intake to less than 1500mg daily, avoid prepackaged, processed, and fast foods, choose a diet rich in fruits, vegetables, and whole grain, high fiber foods, and limit saturated & cholesterol in your diet. (4) Manage Blood Pressure. If you have high blood pressure, you should have a cuff at home so that you can check your blood pressure regularly. Be sure you have a good cuff. An arm one is generally better than a wrist one. Bring the cuff to a doctor's appointment to validate that the measurements that your cuff are taking are accurate. Take your blood pressure twice daily when you are sitting down and relaxing. Record the numbers in a log and bring this log with you to your doctors' appointments. (5) Lose Weight if your BMI is above 25. A healthy BMI is between 19-25. To calculate Your BMI, you may use a Standard BMI Calculator on the NIH BMI we bsite: <www.nhlbi.nih.gov/guidelines/obesity/BMI/bmicalc.htm>. Weigh oneself daily. If you are overweight, set a goal to lose weight. A pound a week loss if needed is a good target. (6) Reduce Blood Sugar. Limit foods and liquids with "added sugars." (Added sugars include sucrose, fructose, glucose, maltose, dextrose, high fructose corn syrup, corn syrup, concentrated fruit juice and honey). (7) Stop Smoking. If you smoke, quitting smoking is one of the best things that you can do for your health. Smoking increases your risk of heart attack, stroke, and peripheral vascular disease, which is a build-up of plaque in your arteries. Please discard all the cigarettes and lighters in your house. Have a plan for what you will do when you have the urge to smoke. Direct and second- hand smoke shortens your life as well as the lives of your family, friends and others around you. For your health and the health of those around you, please consider quitting! Proper Bending Body Mechanics: Maintain a wide stance with one foot slightly in front of the other. Keep your back straight. Bend utilizing the strength in your hips and knees. Do not bend at the waist. Maintain the lifted object at your waist-level close to your body. Avoid lifting weight that causes immediately pain or pain anywhere in the body afterwards. Smoking/Nicotine If there was ever one thing that you could do to increase your overall health, decrease your risk of cardiovascular problems by about 39% the second you make the choice, it is to STOP SMOKING. Your body's most instant gratification is the second you stop smoking. We have all heard the studies, read the articles but it is true, smoking is extremely bad for your overall health, and moreover it is detrimental to your bone health. Nicotine, IN ANY FORM, kills bone cells, prevents your body from healing fractures, and significantly prolongs healing after surgery. In spine surgery specifically, it increases your risk of not healing your bones to create a fusion and increases your risk of having a revision surgery due to this up to 60%. I know it is hard. I know it feels impossible. But there are ways. Take control of your life. We are here to help you through it. And when you are ready, ask us and we can direct you to help if you desire. Use the START Plan to Quit Smoking (please visit the Helpguide.org website listed below for more information): S = Set a quit date. Choose a date within the next 2 weeks, so you have enough time to prepare without losing your motivation to quit. If you mainly smoke at work, quit on the weekend, so you have a few days to adjust to the change. T = Tell family, friends, and co-workers that you plan to quit. Let your friends and family in on your plan to quit smoking and tell them you need their support and encouragement to stop. Look for a quit [place] who wants to stop smoking as well. You can help each other get through the rough times. A = Anticipate and plan for the challenges you'll face while quitting. Most people who begin smoking again do so within the first 3 months. You can help yourself make it through by preparing ahead for common challenges, such as nicotine withdrawal and cigarette cravings. R = Remove cigarettes and other tobacco products from your home, car, and work. Throw away all your cigarettes (no emergency pack!), lighters, ashtrays, and matches. Wash your clothes and freshen up anything that smells like smoke. Shampoo your car, clean your drapes and carpet, and steam your furniture. T = Talk to your doctor about getting help to quit. Your doctor can prescribe medication to help with withdrawal and suggest other alternatives. If you can't see a doctor, you can get many products over the counter at your local pharmacy or grocery store, including the nicotine patch, nicotine lozenges, and nicotine gum. Resources for Quitting Smoking: <https://www.[place].gov/documents/[facility]/Quit_Tobacco_Resources_for_patients_313 480_7.pdf> Supplementation: Take recommended dosages of Vitamin D and Calcium to help fortify your bones and help them to heal. See your health maintenance packet for dosages and recommended levels. DVT/VTE prophylaxis: You will be given compression stockings from the hospital. Wear these daily for the first two weeks after surgery. You may take them off at night. You may be prescribed a medication to help thin your blood. Take this as directed. If you are not prescribed this medication, early and frequent ambulation has been shown to be the best prophylaxis to deep vein thrombosis and sequelae related to this event. Procedures: L4-L5 minimally invasive transforaminal lumbar interbody fusion Patient Condition at Discharge: Good Plan - Discharge Summary Discharge Rx Participant: No New Discharge Prescriptions: New Cyclobenzaprine [Flexeril] 5 mg PO BID PRN #30 tablet PRN Reason: Muscle Spasm Gabapentin 300 mg PO TID #90 cap Sennosides/Docusate Sodium [Senna Plus 8.6-50 mg Softgel] 1 each PO DAILY PRN #30 capsule PRN Reason: Constipation cefaDROXiL [Duricef] 500 mg PO Q12HR #10 cap oxyCODONE-APAP 5-325MG [Percocet 5-325 mg] 1 tab PO Q6HR PRN #28 tab PRN Reason: Pain Dexamethasone [Decadron] 4 mg PO DAILY #5 tablet No Action Atorvastatin [Lipitor] 20 mg PO DAILY Aspirin [Adult Low Dose Aspirin EC] 81 mg PO DAILY Discharge Medication List Aspirin [Adult Low Dose Aspirin EC] 81 mg PO DAILY 11/17/20 [History] Atorvastatin [Lipitor] 20 mg PO DAILY 12/26/20 [History] Cyclobenzaprine [Flexeril] 5 mg PO BID PRN #30 tablet 03/22/21 [Rx] Dexamethasone [Decadron] 4 mg PO DAILY #5 tablet 03/22/21 [Rx] Gabapentin 300 mg PO TID #90 cap 03/22/21 [Rx] Sennosides/Docusate Sodium [Senna Plus 8.6-50 mg Softgel] 1 each PO DAILY PRN #30 capsule 03/22/21 [Rx] cefaDROXiL [Duricef] 500 mg PO Q12HR #10 cap 03/22/21 [Rx] oxyCODONE-APAP 5-325MG [Percocet 5-325 mg] 1 tab PO Q6HR PRN #28 tab 03/22/21 [Rx] Follow up Appointment(s)/Referral(s): Lefty Siu MD [Primary Care Provider] - 1 Week Connor Pinedo DO [Doctor of Osteopathic Medicine] - 2 Weeks Activity/Diet/Wound Care/Special Instructions: Spine Discharge and Recovery Instructions All medication refills should be obtained through your primary care doctor or your clinic spine surgeon. Please discuss prescription refills at your follow up appointment. Do not call the hospital for medication refills. Dressing: Leave foam dressing in place until 03/28/2021, after removal okay to shower directly over the incision. Do not remove the hugo until seen in office. Basic gauze dressing over the incision. Showering: You may shower 3 days after your procedure allowing soap and water to run over incision. Do not scrub. Do not soak. Blot dry. Follow up: Please confirm a follow up appointment with your surgeon 3 weeks post ope ratively. Please make an appointment to follow up with your PCP in 1-2 weeks after surgery for evaluation 3 phase, 3-week plan POST OP WEEKS 1-3 1. Lifting/carrying/pushing/pulling limited to less than 5 pounds. 2. Do not sit for longer than 15 minutes at one time. Get up and walk around. Prolonged sitting is NOT advised. If you lay down, see if you can tolera te laying down on you front (belly side) 3. Walk for periods of 15 minutes = 1 mile but no longer; do it multiple times times each day. 4. Ice your low back after activity. POST OP WEEKS 3-6 1. Lifting limited to less than 20 pounds. 2. Do not sit for longer than 30 minutes at a time. Frequently change positions. Use a sit-to stand workstation or take frequent breaks from sitting if you have returned to work. 3. Walk for 30 minutes each day. If possible, do these three or more times a day POST OP WEEKS 6+ At your 6-week appointment we will give you a physical therapy referral to focus on a core stabilization and strengthening program. You should also work on leg & buttock strengthening, hamstring & quadriceps stretching, and continue a low impact aerobic activity program such as swimming, walking, or riding a stationary bicycle. During the initial 6 weeks after your surgery, you are at the highest risk of re-injuring your spine. You should generally avoid BLTs (bending, lifting and twisting combination motions) and follow the above guidelines to reduce the chance of reinjury. You can anticipate post op appointments in our office at approximately 3 weeks and 6 weeks after your surgery. INCISION CARE: If your incision is not draining you do NOT need to cover it with a dressing. Keep your incision clean, dry and intact. In most cases, we apply skin glue, hugo or sutures to the incision at the time of surgery. This will be like a crust or have the appearance of a scab and will fall off in time on its own. The stitches or hugo need to be removed at 3 weeks post op appointment. You may begin to shower 3 days after surgery (this allows the glue to artis well). However, please avoid scrubbing the incision site or peeling off any of the skin glue. This will ensure optimal healing of your incision. Also, during this time avoid soaking the incision area in water - this includes swimming pools, hot tubs or baths. No ointments, lotions or oils on the incision until your surgeon allows. Leave hugo, sutures or glue in place. Neurological dysfunction that comes on suddenly can also be a sign of a stroke. Below some common symptoms of a stroke are listed: B - balance difficulty such as sudden onset walking or leaning to one side - NEW E - eye problem such as sudden double vision or trouble seeing on one side - NEW F - Facial weakness or numbness on one side - NEW A - Arm or leg weakness or numbness on one side - NEW S - Slurred speech or difficulty with word finding - NEW T - Time is BRAIN! Call 911 as soon as you recognize these symptoms Diet: Consume a regular diet rich in vegetables and lean protein such as chicken or fish. You should consume in a ratio of approximately 20% fats|40% carbohydrates|40%protein. Vegetables, sweet potatoes, brown rice or quinoa are examples of good carbohydrates. Chips, white bread, cookies and sweets/sugar are examples of bad carbohydrates. Limit your bad carbs, go wild with good carbs. "Life's Simple 7" Guidelines as per [employer] These will help you reclaim your life after surgery and distillation operator helper in your recovery, keeping in mind your restrictions. (1) Get Active. Physical activity can help people lose weight, control high blood pressure and cholesterol, feel emotionally better, and sleep better. (2) Control Cholesterol. Avoid a diet high in saturated fat, trans fat, & cholesterol. Limit whole milk & cream, ice cream, butter, egg yolks, processed meats (like sausage and hot dogs), and fatty meats. Choose healthy foods that are low in saturated fat, trans fat and cholesterol which include: Fruits and vegetables, fiber rich grain products (like whole grain pasta and brown rice), lean meat such as chicken, fish, nuts, seeds, and legumes. (3) Eat Better. Eat small portions. Shop at the grocery with a list and do not stray from it. Tips for a healthy diet include: Limit sodium intake to less than 1500mg daily, avoid prepackaged, processed, and fast foods, choose a diet rich in fruits, vegetables, and whole grain, high fiber foods, and limit saturated & cholesterol in your diet. (4) Manage Blood Pressure. If you have high blood pressure, you should have a cuff at home so that you can check your blood pressure regularly. Be sure you have a good cuff. An arm one is generally better than a wrist one. Bring the cuff to a doctor's appointment to validate that the measurements that your cuff are taking are accurate. Take your blood pressure twice daily when you are sitting down and relaxing. Record the numbers in a log and bring this log with you to your doctors' appointments. (5) Lose Weight if your BMI is above 25. A healthy BMI is between 19-25. To calculate Your BMI, you may use a Standard BMI Calculator on the NIH BMI website: <www.nhlbi.nih.gov/guidelines/obesity/BMI/bmicalc.htm>. Weigh oneself daily. If you are overweight, set a goal to lose weight. A pound a week loss if needed is a good target. (6) Reduce Blood Sugar. Limit foods and liquids with "added sugars." (Added sugars include sucrose, fructose, glucose, maltose, dextrose, high fructose corn syrup, corn syrup, concentrated fruit juice and honey). (7) Stop Smoking. If you smoke, quitting smoking is one of the best things that you can do for your health. Smoking increases your risk of heart attack, stroke, and peripheral vascular disease, which is a build-up of plaque in your arteries. Please discard all the cigarettes and lighters in your house. Have a plan for what you will do when you have the urge to smoke. Direct and second- hand smoke shortens your life as well as the lives of your family, friends and others around you. For your health and the health of those around you, please consider quitting! Proper Bending Body Mechanics: Maintain a wide stance with one foot slightly in front of the other. Keep your back straight. Bend utilizing the strength in your hips and knees. Do not bend at the waist. Maintain the lifted object at your waist-level close to your body. Avoid lifting weight that causes immediately pain or pain anywhere in the body afterwards. Smoking/Nicotine If there was ever one thing that you could do to increase your overall health, decrease your risk of cardiovascular problems by about 39% the second you make the choice, it is to STOP SMOKING. Your body's most instant gratification is the second you stop smoking. We have all heard the studies, read the articles but it is true, smoking is extremely bad for your overall health, and moreover it is detrimental to your bone health. Nicotine, IN ANY FORM, kills bone cells, prevents your body from healing fractures, and significantly prolongs healing after surgery. In spine surgery specifically, it increases your risk of not healing your bones to create a fusion and increases your risk of having a revision surgery due to this up to 60%. I know it is hard. I know it feels impossible. But there are ways. Take control of your life. We are here to help you through it. And when you are ready, ask us and we can direct you to help if you desire. Use the START Plan to Quit Smoking (please visit the Helpguide.org website listed below for more information): S = Set a quit date. Choose a date within the next 2 weeks, so you have enough time to prepare without losing your motivation to quit. If you mainly smoke at work, quit on the weekend, so you have a few days to adjust to the change. T = Tell family, friends, and co-workers that you plan to quit. Let your friends and family in on your plan to quit smoking and tell them you need their support and encouragement to stop. Look for a quit [place] who wants to stop smoking as well. You can help each other get through the rough times. A = Anticipate and plan for the challenges you'll face while quitting. Most people who begin smoking again do so within the first 3 months. You can help yourself make it through by preparing ahead for common challenges, such as nicotine withdrawal and cigarette cravings. R = Remove cigarettes and other tobacco products from your home, car, and work. Throw away all your cigarettes (no emergency pack!), lighters, ashtrays, and matches. Wash your clothes and freshen up anything that smells like smoke. Shampoo your car, clean your drapes and carpet, and steam your furniture. T = Talk to your doctor about getting help to quit. Your doctor can prescribe medication to help with withdrawal and suggest other alternatives. If you can't see a doctor, you can get many products over the counter at your local pharmacy or grocery store, including the nicotine patch, nicotine lozenges, and nicotine gum. Resources for Quitting Smoking: <https://www.[place].gov/do cuments/[facility]/Quit_Tobacco_Resources_for_patients_313480_7.pdf> Supplementation: Take recommended dosages of Vitamin D and Calcium to help fortify your bones and help them to heal. See your health maintenance packet for dosages and recommended levels. DVT/VTE prophylaxis: You will be given compression stockings from the hospital. Wear these daily for the first two weeks after surgery. You may take them off at night. You may be prescribed a medication to help thin your blood. Take this as directed. If you are not prescribed this medication, early and frequent ambulation has been shown to be the best prophylaxis to deep vein thrombosis and sequelae related to this event. Discharge Disposition: HOME SELF-CARE
--- NOTE | 2021-03-23 08:02 | P.OP ---
Date of Procedure: 03/21/21 Preoperative Diagnosis: 1. L4-L5 grade 1 spondylolisthesis mobile 2.L4-L5 stenosis 3. Bilateral lower extremity radiculopathy 4. b/l LE weakness 5. Neurogenic claudication Postoperative Diagnosis: 1. L4-L5 grade 1 spondylolisthesis mobile 2.L4-L5 stenosis 3. Bilateral lower extremity radiculopathy 4. b/l LE weakness 5. Neurogenic claudication Procedure(s) Performed: 1. L4-5 minimally invasive TLIF 2. L4-5 bilateral laminoforaminotomies through a minimally invasive approach 3. Use of intraoperative [employer] 3D navigation for screw placement 4. Use of intraoperative microscope 5. Use of intraoperative EMG and SSEP monitoring Implants: 1. [place] screws x4 6.5 x40 mm 2. Astrua 9 mm 8 deg lordotic expandable cage Theracell DBM bullets Rachel DBM Bio 4 Autograft Anesthesia: GETA Surgeon: Connor Pinedo Space Controller #1: Dejuan Alves (Was present and necessary for the entire case due to the complexity) Estimated Blood Loss (ml): 100 IV fluids (ml): 2,000 Urine output (ml): 500 Pathology: none sent Condition: stable Disposition: PACU Indications for Procedure: This is a 55-year-old male who presented and was followed in the orthopedic spine clinic [facility] for his low back pain. Patient has had severe low back pain for some time as well as lower extremity pain and lower extremity weakness and intolerance to walking distance her activity. Patient went through a multitude of different conservative measures including physical therapy home exercise programs over the counter as well as prescription medications and injections epidural and transforaminal none of which alleviated his symptoms. He was found to have severe stenosis of L4-L5 with disc collapse and grade 1 spondylolisthesis. We discussed different options for treatment including nonsurgical options of which we have exhausted and have not alleviated the patient's symptoms we discussed different surgical options including decompressi on alone versus decompression and fusion. After long discussion with the patient the patient has opted for decompression and fusion due to his grade 1 spondylolisthesis instability back pain mechanical pain as well as neurogenic claudication. I do feel that this is a reasonable choice for the patient. We discussed different risks and benefits of each procedure and he was comfortable with these. Patient was seen and examined preoperatively all preoperative protocols were followed. The patient seen by the department anesthesia and deemed fit for surgery. Informed consent was obtained risks and benefits of the procedure discussed again as outlined in the risk review. Site was marked patient was willing to proceed. He was given a weight-based dose of antibiotics. Description of Procedure: The patient was seen and examined in the preoperative area. All preoperative protocols were followed. Informed consent was obtained risks and benefits of the procedure were discussed at length. Risks including bleeding infection damage to the surrounding tissue and risk of reoperation were discussed with the patient. Risk of anesthesia up to and including was a discussed with the patient. These are outlined in the risk review. They were willing to accept these risks and all of the risks of surgery. The patient was given a weight- based dose of antibiotics in the form of 2 g ancef IVPB x 1. The patient was seen and evaluated by the anesthesia team who deemed them fit for surgery. The site was marked, the patient was willing to proceed with the procedure. The patient was transferred to the operative suite by the Department of anesthesia. They were then drifted off to sleep by the department anesthesia and GETA was performed. The patient tolerated this well. [Bolanos catheter was placed by nursing staff, atraumatically]. Once confirmation of lines and ventilation the patient was transferred to a [prone Garth table very carefully]. All bony prominences including wrists, elbows, axilla, chest, hips, and thighs, and feet were padded very well. Special attention was paid to the genitalia and these were padded accordingly. SCDs were placed on bilateral lower extremities and were connected. Arms were well padded and placed [on arm boards up and out in the 90/90 position]. Once in position, again we confirmed good ventilation capabilities and that lines were running appropriately. The patient's lumbar spine was then exposed. 1010s were placed outlining the incision site. Standard alcohol was used to clean the incision site and allowed to dry. C-arm was used to biomark the patient and confirm level for incision which was marked with a skin marker. Operative briefing was performed with all teams and everyone in agreement to proceed. The patient was then prepped and draped in a normal sterile fashion. Timeout was then performed and all parties were in agreement with the procedure to be performed. After draping, we then placed the spine mask tracker and secured it with IOband. We then performed a 3D Ziehm spin to obtain imaging for navigation. We then confirmed accuracy of navigation. Once confirmed we used the navigated jamshidi to plan our incisions as well as access the pedicles of L4 and L5 bilaterally. Once accessed we placed wires to hold position and removed jamshidi. We then on the S placed screws with navigation over these wires into L4 and L5 pedicles. We tested these screws with IONM and they tested above 20 mA. We then turned our attention to placement of a tub retractor system at the L4-5 interspace on the LHS. This was done under AP and lateral imaging. We then performed limited myomectomy at the site to identify the facet joints and the pars and lamina of L4. The IAP of L4 and the SAP of L5 were removed using a high speed kwaku. We then accessed Kambins triangle using kerrisons and currets. We then used Kerrison and high speed kwaku to perform an over the top decompress ion of L4-5 accessing the contralateral side and performing an inside out laminoforaminotomy of L4-5. We then completed our decompression on the left with kerrrisons. We then carfully retracted the dura, which had been completely decompressed at this level with a nerve root retractor. We then accessed the disc space of L4-5 under lateral imaging with a knife followed by sequential rian. Once we had shaved to the desired height on lateral and had good endplate contact we removed excess disc material and scraped the endplates with curettes and bear claws. We made sure we were midline with AP imaging and trial inserted. We then selected a cage and placed this atraumatically protecting the dura and exiting root completely. The disc space was prepacked with autograft and theracell bullets before placement of the cage. The cage was pre packed with autograft and Bio4. The cage was then expanded under lateral imaging and created good lordosis and reduction of disc height. We then copiously irrigated the area and checked the dura and roots and they were in order w/o any leaks. We did some clean up decompression with kerrisons at the site and then performed final hemostasis with julia seal and patties. We then removed the tubular retractor system. We then placed S screws over wires using navigation and imaging. These were confirmed in good position on AP and Lat imaging. We then measured and placed rods subfacially through screws and placed set screws. These were final tightened down. We then borke the screw tabs off and confirmed they were not left behind. We then took final images which showed good hardware placement and good reduction and decompression. We copiously irrigated the wounds with NSS. The facial layers were then closed with O Vircyl using a scorpion system followed by 2-0 vicryl in the subq followed by hugo in the skin. The skin was then cleaned and dressed sterrilly with opifoam dressings. Final IONM showed no changes and no EMG bursts. The patient was transferred back to their hospital bed atraumatically. Patient was then awakened and extubated by the department of anesthesia having tolerated the procedure very well with no complications. They were transferred to the postoperative care unit in stable condition.
== END 2021-03-22 17:23 | disposition home or self-care (01) ==
LOC: OR 10:14 → 5NMEDONC 20:19 → OR 03-22 17:23
PROVIDERS: ATTEND Orthopaedic Surgery
DX: M47.26 Other spondylosis with radiculopathy, lumbar region (principal); M48.062 Spinal stenosis, lumbar region with neurogenic claudication; E78.5 Hyperlipidemia, unspecified; I25.2 Old myocardial infarction; I25.10 Atherosclerotic heart disease of native coronary artery without angina pectoris; G89.29 Other chronic pain; F17.210 Nicotine dependence, cigarettes, uncomplicated; Z79.899 Other long term (current) drug therapy; Z95.1 Presence of aortocoronary bypass graft; Z20.822 Contact with and (suspected) exposure to COVID-19
CPT/HCPCS: 97162; 86900; 86901; 86803; 86701; 80048; 85025; 86850; 87340; 86704; 87635; 72100; 36415; 63047; C1713 ×2; C1762 ×3; J2250; J1100 ×2; J0690 ×2; J2405; J2001; J3010; J1170 ×2; J1885; J2370; J0330; J2704

== ENCOUNTER → 2022-08-21 | Outpatient (CLI) | payer BC ==
[2022-08-21 16:09] LABS: Basophils # (A) 0.09 X 10*3/uL (0.00-0.10); Basophils % (A) 1.7 %; Eosinophils # (A) 0.13 X 10*3/uL (0.04-0.35); Eosinophils % (A) 2.5 %; HCT 41.8 % (39.6-50.0); HGB 13.8 g/dL (13.0-17.0); Immature Grans, Automated 0.4 %; Lymphocytes # (A) 1.49 X 10*3/uL (0.90-5.00); Lymphocytes % (A) 28.5 %; MCH 30.5 pg (27.0-32.0); MCV 92.3 fL (80.0-97.0); Mean Platelet Volume 9.3 fL (9.5-12.2); Monocytes # (A) 0.51 X 10*3/uL (0.20-1.00); Monocytes % (A) 9.8 %; NRBC Per 100 WBC 0 /100 WBCS (0.0-0.0); Neutrophils # (A) 2.98 X 10*3/uL (1.80-7.70); Neutrophils % (A) 57.1 %; Platelet Count 288 X 10*3/uL (140-440); RBC 4.53 X 10*6/uL (4.40-5.60); WBC 5.22 X 10*3/uL (4.50-10.00)
[2022-08-21 16:18] LABS: ALT 15 U/L (10-49); AST 14 U/L (14-35); African American GFR (CKD) 93.7 (60.0-200.0); Albumin 4.1 g/dL (3.8-4.9); Albumin/Globulin Ratio 2.12 (1.60-3.17); Alkaline Phosphatase 71 U/L (41-126); BUN/Creat Ratio 16.31 Ratio (12.00-20.00); Blood Urea Nitrogen 16.8 mg/dL (9.0-27.0); Calcium 9.5 mg/dL (8.7-10.3); Carbon Dioxide 22.7 mmol/L (20.0-27.5); Chloride 106 mmol/L (96-109); Chol/HDL Ratio 4.96 Ratio; Glucose 118 mg/dL (70-110); LDL Cholesterol,Calculated 138.6 mg/dL (0.0-131.0); Non-African American GFR(CKD) 80.8 (60.0-200.0); Potassium 4.6 mmol/L (3.5-5.5); Sodium 140 mmol/L (135-145); Total Bilirubin <0.15 mg/dL (0.30-1.20); Total Protein 6.1 g/dL (6.2-8.2)
--- NOTE | 2022-08-21 19:26 | XR ---
EXAMINATION TYPE: XR knee complete RT DATE OF EXAM: 08/21/2022 11:28 AM INDICATION: Patient age:Male; 57 years old; Reason for study: [id number] PAIN IN RT KNEE; PHH. COMPARISON: None. TECHNIQUE: The Right knee(s) was examined in 3 projections. Frontal, lateral and oblique. FINDINGS: No evidence of any acute osseous pathology, joint space narrowing, soft tissue swelling, or joint effusion is noted. Incidental fabella. IMPRESSION: No acute osseous pathology.
== END | disposition home or self-care (01) ==
LOC: LABWHC1 11:13
PROVIDERS: ATTEND Family Medicine
DX: M25.561 Pain in right knee (principal); E78.5 Hyperlipidemia, unspecified
CPT/HCPCS: 36415; 80053; 80061; 83036; 84153; 84443; 85025

== ENCOUNTER → 2023-08-13 | Outpatient (CLI) | payer BC ==
--- NOTE | 2023-08-13 12:09 | XR ---
EXAMINATION TYPE: XR foot complete bilateral DATE OF EXAM: 08/13/2023 COMPARISON: NONE HISTORY: Pain TECHNIQUE: Three views of each foot are submitted. FINDINGS: The osseous structures are intact. There is no acute fracture or dislocation. Calcaneal spur not ed bilaterally. Bilateral mild first MTP joint arthropathy. No erosive changes. IMPRESSION: 1. Bilateral moderate size calcaneal spurs. 2. Bilateral mild first MTP joint arthropathy.
== END | disposition home or self-care (01) ==
LOC: RADXRMAIN 11:34
PROVIDERS: ATTEND Family Medicine
DX: M77.31 Calcaneal spur, right foot (principal); M77.32 Calcaneal spur, left foot; M19.071 Primary osteoarthritis, right ankle and foot; M19.072 Primary osteoarthritis, left ankle and foot